=== PATIENT | female | born 1965 | race Caucasian/White ===

== ENCOUNTER 2017-01-29 15:41 | Emergency (ER) | payer BC, MEDICARE ==
[2017-01-29] MEDS ORDERED: EPINEPHrine 1 MG/ML SDV ONE (15:43)
[2017-01-29] MEDS ORDERED: methylPREDNISolone Sodium Succinate 125 MG/2 ML SDV ONE (15:43)
[2017-01-29] MEDS ORDERED: diphenhydrAMINE 50 MG/ML SDV ONE (15:43)
[2017-01-29] MEDS ORDERED: Sodium Chloride 0.9% 10 ML Syringe FLUSH PRN (15:51)
[2017-01-29] MEDS ORDERED: Sodium Chloride 0.9% 2.5 ML Syringe FLUSH PRN (15:51)
[2017-01-29] MEDS ORDERED: diphenhydrAMINE 50 MG/ML SDV IVPUSH ONE (15:51)
[2017-01-29] MEDS ORDERED: Famotidine 20 MG/2 ML SDV IVPUSH ONE (15:51)
[2017-01-29] MEDS ORDERED: methylPREDNISolone Sodium Succinate 125 MG/2 ML SDV IVPUSH ONE (15:51)
[2017-01-29] MEDS ORDERED: Sodium Chloride 0.9% 1,000 ML IV ONE (15:51)
[2017-01-29] MEDS ORDERED: EPINEPHrine 1 MG/ML SDV IM ONE (15:51)
--- NOTE | 2017-01-29 15:57 | EDM.PDOC ---
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 The patient said she feels somewhat anxious but she's not short of breath and she has no diffuse rash or itching. She has pain and swelling to her left hand secondary to the insect sting area. She has a history of rheumatoid arthritis and chronic pain in her hands anyway. Patient says she does not have an EpiPen because it is "too expensive" Review of systems: As per history of present illness and below otherwise all systems reviewed and negative. Past medical history: As per history of present illness and as reviewed below otherwise noncontributory. Surgical history: As per history of present illness and as reviewed below otherwise noncontributory. Social history: No reported history of drug or alcohol abuse. Family history: As per history of present illness and as reviewed below otherwise noncontributory. Physical exam: Gen.: Well-developed well-nourished female speaking clearly and easily in the ED without breathlessness or hoarseness to her voice. She has no visible facial swelling or oropharyngeal edema HEENT: Atraumatic, normocephalic, pupils reactive, negative for conjunctival pallor or scleral icterus, mucous membranes moist, throat clear, neck supple, nontender, trachea midline. Lungs: Clear to auscultation, breath sounds equal bilaterally, chest nontender. There Is no stridor or wheezing or work of breathing Heart: S1S2, regular rate and rhythm no overt murmurs Abdomen: Soft, nondistended, nontender. NABS Skin: There is no diffuse erythema rash flushing urticaria seen and turgor is normal. There is some diffuse ill-defined pink erythema at the dorsal aspect of the first MCP area where bite occurred spreading to the dorsal hand but there is no discrete border/urticaria or tenderness. The patient says that she has diffuse tenderness in this region and she always had this pain but it is worse due to the bite. Genitourinary: Deferred. Rectal: Deferred. Extremities: Atraumatic, chronic changes of the hands are noted secondary to her rheumatoid and all other extremities have full range of motion negative for cords or calf pain. Neurovascular unremarkable. Neuro: Awake, alert, oriented. Cranial nerves II through XII unremarkable. Cerebellum unremarkable. Motor and sensory unremarkable throughout. Exam nonfocal. Diagnostics: None Therapeutics: IV fluids at the Solu-Medrol Pepcid Benadryl Patient continues to be stable without any airway compromise, facial swelling and no progression of the erythema on the hand. I will write a prescription for an EpiPen as well as prednisone and advised Benadryl for home. Patient initially told me she does not have an EpiPen because she cannot afford it. Impression: Wasp sting with history of anaphylactic reaction stable Definitive disposition and diagnosis as appropriate pending reevaluation and review of above. - Related Data Allergies Allergy/AdvReac Type Severity Reaction Status Date / Time latex Allergy swelling,it Verified 01/29/17 15:43 abdullahi bee sting Allergy Swelling Uncoded 07/06/16 23:26 Home Meds: Home Meds Cholecalciferol (Vitamin D3) [Vitamin D3] 1,000 unit PO DAILY 07/06/16 [History] Cyanocobalamin (Vitamin B-12) [Vitamin B-12] 1,000 mg PO DAILY 07/06/16 [History ] DULoxetine [Cymbalta] 2 mg PO DAILY 07/06/16 [History] Folic Acid 1 mg PO DAILY 07/06/16 [History] Meloxicam 7.5 mg PO DAILY 07/06/16 [History] Prednisone [IMW: predniSONE] 2 mg PO DAILY 07/06/16 [History] Zolpidem Tartrate [Ambien] 5 mg PO DAILY 07/06/16 [History] Past Medical History HEENT History: Reports: None Cardiovascular History: Reports: None Respiratory History: Reports: None Gastrointestinal History: Reports: None Genitourinary History: Reports: None RECRUITMENT OFFICER History: Reports: None Musculoskeletal History: Reports: Osteoarthritis, RA Neurological History: Reports: None Psychiatric History: Reports: None Endocrine/Metabolic History: Reports: None Hematologic History: Reports: None Immunologic History: Reports: None Oncologic (Cancer) History: Reports: None Dermatologic History: Reports: None - Infectious Disease History Infectious Disease History: Reports: Chicken Pox, Influenza - Past Surgical History Head Surgeries/Procedures: Reports: None HEENT Surgical History: Reports: None Cardiovascular Surgical History: Reports: None Respiratory Surgical History: Reports: None GI Surgical History: Reports: None Female Surgical History: Reports: Hysterectomy Endocrine Surgical History: Reports: None Neurological Surgical History: Reports: None Musculoskeletal Surgical History: Reports: None Oncologic Surgical History: Reports: None Dermatological Surgical History: Reports: None Social & Family History - Tobacco Use Smoking Status *Q: Never Smoker Years of Tobacco use: 0 Packs/Tins Daily: 0 - Caffeine Use Caffeine Use: Reports: Coffee, Soda - Recreational Drug Use Recreational Drug Use: No ED ROS GENERAL - Review of Systems Review Of Systems: ROS reveals no pertinent complaints other than HPI. ED EXAM, GENERAL - Physical Exam Exam: See Below (See dictation) Course - Vital Signs Last Recorded V/S: Last Vital Signs Temp 36.8 C 01/29/17 15:44 Pulse 90 01/29/17 16:15 Resp 15 01/29/17 16:15 BP 143/92 H 01/29/17 16:15 Pulse Ox 100 01/29/17 16:15 - Orders/Labs/Meds Orders: Active Orders 24 hr Category Date Time Status Sodium Chloride 0.9% [Normal Saline] 1,000 ml Med 01/29/17 15:51 Active IV STAT Sodium Chloride 0.9% [Saline Flush] Med 01/29/17 15:51 Active 10 ml FLUSH ASDIRECTED PRN Sodium Chloride 0.9% [Saline Flush] Med 01/29/17 15:51 Active 2.5 ml FLUSH ASDIRECTED PRN Saline Lock Insert [OM.PC] Stat Oth 01/29/17 15:51 Ordered Medication Orders Sodium Chloride (Normal Saline) 1,000 mls @ 999 mls/hr IV STAT ONE Stop: 01/29/17 16:51 Last Admin: 01/29/17 16:13 Dose: 999 mls/hr Sodium Chloride (Saline Flush) 10 ml FLUSH ASDIRECTED PRN PRN Reason: Keep Vein Open Last Admin: 01/29/17 16:10 Dose: 10 ml Sodium Chloride (Saline Flush) 2.5 ml FLUSH ASDIRECTED PRN PRN Reason: Keep Vein Open Last Admin: 01/29/17 16:10 Dose: 2.5 ml Meds: Medications Generic Name Dose Route Start Last Admin Trade Name Freq PRN Reason Stop Dose Admin Sodium Chloride 1,000 mls @ 999 mls/hr 01/29/17 15:51 01/29/17 16:13 Normal Saline IV 01/29/17 16:51 999 mls/hr STAT ONE Administration Sodium Chloride 10 ml 01/29/17 15:51 01/29/17 16:10 Saline Flush FLUSH 10 ml ASDIRECTED PRN Administration Keep Vein Open Sodium Chloride 2.5 ml 01/29/17 15:51 01/29/17 16:10 Saline Flush FLUSH 2.5 ml ASDIRECTED PRN Administration Keep Vein Open Discontinued Medications Generic Name Dose Route Start Last Admin Trade Name Freq PRN Reason Stop Dose Admin Diphenhydramine HCl 50 mg 01/29/17 15:51 01/29/17 16:10 Benadryl IVPUSH 01/29/17 15:52 50 mg ONETIME ONE Administration Epinephrine HCl 0.3 mg 01/29/17 15:51 01/29/17 16:10 Adrenalin 1:1000 IM 01/29/17 15:52 Not Given ONETIME ONE Epinephrine HCl 0.3 mg 01/29/17 16:09 01/29/17 16:09 Adrenalin 1:1000 SUBCUT 01/29/17 16:10 0.3 mg ONETIME ONE Administration Famotidine 20 mg 01/29/17 15:51 01/29/17 16:11 Pepcid IVPUSH 01/29/17 15:52 20 mg ONETIME ONE Administration Methylprednisolone Sodium Succinate 125 mg 01/29/17 15:51 01/29/17 16:10 Solu-Medrol IVPUSH 01/29/17 15:52 125 mg ONETIME ONE Administration Departure - Departure Time of Disposition: 16:48 Disposition: Home, Self-Care 01 Condition: Good Clinical Impression: Wasp sting Qualifiers: Encounter type: initial encounter Injury intent: accidental or unintentional Qualified Code(s): T63.461A - Toxic effect of venom of wasps, accidental ( unintentional), initial encounter Allergic reaction Qualifiers: Encounter type: initial encounter Qualified Code(s): T78.40XA - Allergy, unspecified, initial encounter - Discharge Information Forms: ED Department Discharge Additional Instructions: The following information is given to patients seen in the emergency department who are being discharged to home. This information is to outline your options for follow-up care. We provide all patients seen in our emergency department with a follow-up referral. The need for follow-up, as well as the timing and circumstances, are variable depending upon the specifics of your emergency department visit. If you don't have a primary care physician on staff, we will provide you with a referral. We always advise you to contact your personal physician following an emergency department visit to inform them of the circumstance of the visit and for follow-up with them and/or the need for any referrals to a consulting specialist. The emergency department will also refer you to a specialist when appropriate. This referral assures that you have the opportunity for followup care with a specialist. All of these measure are taken in an effort to provide you with optimal care, which includes your followup. Under all circumstances we always encourage you to contact your private physician who remains a resource for coordinating your care. When calling for followup care, please make the office aware that this follow-up is from your recent emergency room visit. If for any reason you are refused follow-up, please contact the [facility] emergency department at and ask to speak to the emergency department charge nurse. [facility] Primary care- Internal Medicine and Family [address] [address] Please continue to take Benadryl every 6 hours, 50 mg, for the next 24-36 hours for itching redness rashes as we discussed. Please take the prednisone as prescribed until it is finished. Please use the EpiPen if you're stung again and please call and follow-up with your clinic doctor or one of our providers in the next few days for reevaluation and further care. Expect pain swelling near the insect sting location ice and elevate to the area. Return to ER as needed and as discussed - My Orders Last 24 Hours: My Active Orders 01/29/17 15:51 Sodium Chloride 0.9% [Normal Saline] 1,000 ml IV STAT Sodium Chloride 0.9% [Saline Flush] 10 ml FLUSH ASDIRECTED PRN Sodium Chloride 0.9% [Saline Flush] 2.5 ml FLUSH ASDIRECTED PRN Saline Lock Insert [OM.PC] Stat - Assessment/Plan Last 24 Hours: My Active Orders 01/29/17 15:51 Sodium Chloride 0.9% [Normal Saline] 1,000 ml IV STAT Sodium Chloride 0.9% [Saline Flush] 10 ml FLUSH ASDIRECTED PRN Sodium Chloride 0.9% [Saline Flush] 2.5 ml FLUSH ASDIRECTED PRN Saline Lock Insert [OM.PC] Stat
[2017-01-29] MEDS ORDERED: EPINEPHrine 1 MG/1 ML Amp SUBCUT ONE (16:09)
[2017-01-29 17:06] VITALS: BP 128/91
== END 2017-01-29 17:05 | disposition home or self-care (01) ==
LOC: MW.ED 15:41
DX: T63.461A Toxic effect of venom of wasps, accidental (unintentional), initial encounter (principal); M19.90 Unspecified osteoarthritis, unspecified site; Z90.710 Acquired absence of both cervix and uterus; Z79.899 Other long term (current) drug therapy; Z91.040 Latex allergy status; Z91.030 Bee allergy status
CPT/HCPCS: 96361; 96372; 96374; 96375; 99283; J0171; J1200; J2930; J7040

== ENCOUNTER 2017-06-18 13:07 | Inpatient (IN) | payer BC, MEDICARE ==
--- NOTE | 2017-06-18 13:12 | EDM.PDOC ---
ED HPI GENERAL MEDICAL PROBLEM - General Chief Complaint: Lower Extremity Injury/Pain Stated Complaint: FALL Time Seen by Provider: 06/18/17 13:10 Source of Information: Reports: Patient, EMS - History of Present Illness INITIAL COMMENTS - FREE TEXT/NARRATIVE: HISTORY AND PHYSICAL: History of present illness: [Patient slipped getting into a pickup or out of a pickup felt to her bottom complains of left hip pain 10 out of 10, EMS on the cemented provided fentanyl 50 g, pain 0 out of 10 at current Tender with palpation entire limb neurovascularly intact on the left, slight shortening with external rotation Head injury or loss of consciousness no fever nausea vomiting chills sweats no chest pain shortness breath headache dizziness palpitation about a urine symptoms ] Review of systems: As per history of present illness and below otherwise all systems reviewed and negative. Past medical history: As per history of present illness and as reviewed below otherwise noncontributory. Surgical history: As per history of present illness and as reviewed below otherwise noncontributory. Social history: No reported history of drug or alcohol abuse. Family history: As per history of present illness and as reviewed below otherwise noncontributory. Physical exam: HEENT: Atraumatic, normocephalic, pupils reactive, negative for conjunctival pallor or scleral icterus, mucous membranes moist, throat clear, neck supple, nontender, trachea midline. Lungs: Clear to auscultation, breath sounds equal bilaterally, chest nontender. Heart: S1S2, regular, negative for clicks, rubs, or JVD. Abdomen: Soft, nondistended, nontender. Negative for masses or hepatosplenomegaly. Negative for costovertebral tenderness. Pelvis: Stable nontender. Genitourinary: Deferred. Rectal: Deferred. Extremities: Atraumatic, negative for cords or calf pain. Neurovascular unremarkable. Neuro: Awake, alert, oriented. Cranial nerves II through XII unremarkable. Cerebellum unremarkable. Motor and sensory unremarkable throughout. Exam nonfocal. Diagnostics: [CBC CMP UA troponin INR EKG Chest 1 view Pelvis with left hip ] Therapeutics: [Fentanyl 100 g IV per EMS Dr. Laguna is been down to evaluate Patient be admitted inpatient Dr. Armenta ] Impression: Left hip fracture [Left hip pain] Definitive disposition and diagnosis as appropriate pending reevaluation and review of above. Left Hip Pain Score (Numeric/FACES): 4 - Related Data Allergies Allergy/AdvReac Type Severity Reaction Status Date / Time latex Allergy swelling,it Verified 06/18/17 13:15 abdullahi bee sting Allergy Swelling Uncoded 07/06/16 23:26 Home Meds: Home Meds Cholecalciferol (Vitamin D3) [Vitamin D3] 1,000 unit PO DAILY 07/06/16 [History] Cyanocobalamin (Vitamin B-12) [Vitamin B-12] 1,000 mg PO DAILY 07/06/16 [History ] DULoxetine [Cymbalta] 2 mg PO DAILY 07/06/16 [History] Folic Acid 1 mg PO DAILY 07/06/16 [History] Meloxicam 7.5 mg PO DAILY 07/06/16 [History] Prednisone [IMW: predniSONE] 2 mg PO DAILY 07/06/16 [History] Zolpidem Tartrate [Ambien] 5 mg PO DAILY 07/06/16 [History] Past Medical History HEENT History: Reports: None Cardiovascular History: Reports: None Respiratory History: Reports: None Gastrointestinal History: Reports: None Genitourinary History: Reports: None PHARMACY INFORMATICIST History: Reports: None Musculoskeletal History: Reports: Osteoarthritis Neurological History: Reports: None Psychiatric History: Reports: None Endocrine/Metabolic History: Reports: None Hematologic History: Reports: None Immunologic History: Reports: None Oncologic (Cancer) History: Reports: None Dermatologic History: Reports: None - Infectious Disease History Infectious Disease History: Reports: Chicken Pox, Influenza - Past Surgical History Head Surgeries/Procedures: Reports: None HEENT Surgical History: Reports: None Cardiovascular Surgical History: Reports: None Respiratory Surgical History: Reports: None GI Surgical History: Reports: None Female Surgical History: Reports: Hysterectomy Endocrine Surgical History: Reports: None Neurological Surgical History: Reports: None Musculoskeletal Surgical History: Reports: None Oncologic Surgical History: Reports: None Dermatological Surgical History: Reports: None Social & Family History - Tobacco Use Smoking Status *Q: Light Tobacco Smoker Years of Tobacco use: 0 Packs/Tins Daily: 0 - Caffeine Use Caffeine Use: Reports: Coffee, Soda - Recreational Drug Use Recreational Drug Use: No Review of Systems - Review of Systems Review Of Systems: ROS reveals no pertinent complaints other than HPI. ED EXAM, GENERAL - Physical Exam Exam: See Below Course - Vital Signs Last Recorded V/S: Last Vital Signs Temp 97.1 F 06/18/17 13:12 Pulse 103 H 06/18/17 13:12 Resp 18 06/18/17 13:12 BP 148/92 H 06/18/17 13:12 Pulse Ox 93 L 06/18/17 13:12 - Orders/Labs/Meds Orders: Active Orders 24 hr Category Date Time Status EKG Documentation Completion [RC] STAT Care 06/18/17 13:09 Active Chest 1V Frontal [CR] Stat Exams 06/18/17 13:09 Ordered COMPREHENSIVE METABOLIC PN,CMP [CHEM] Stat Lab 06/18/17 13:22 Received TROPONIN I [CHEM] Stat Lab 06/18/17 13:22 Received UA W/MICROSCOPIC [URIN] Stat Lab 06/18/17 13:09 Uncollected Sodium Chloride 0.9% [Normal Saline] 1,000 ml Med 06/18/17 13:15 Active IV STAT Medication Orders Sodium Chloride (Normal Saline) 1,000 mls @ 125 mls/hr IV STAT MICHAEL Labs: Laboratory Tests 06/18/17 06/18/17 Range/Units 13:22 13:22 WBC 4.61 (4.0-11.0) K/uL RBC 5.11 (4.30-5.90) M/uL Hgb 14.4 (12.0-16.0) g/dL Hct 42.8 (36.0-46.0) % MCV 83.8 (80.0-98.0) fL MCH 28.2 (27.0-32.0) pg MCHC 33.6 (31.0-37.0) g/dL RDW Std Deviation 47.6 (28.0-62.0) fl RDW Coeff of Rashaun 16 H (11.0-15.0) % Plt Count 204 (150-400) K/uL MPV 8.70 (7.40-12.00) fL Neut % (Auto) 56.9 (48.0-80.0) % Lymph % (Auto) 34.9 (16.0-40.0) % Vernon % (Auto) 6.7 (0.0-15.0) % Eos % (Auto) 1.3 (0.0-7.0) % Baso % (Auto) 0.2 (0.0-1.5) % Neut # (Auto) 2.6 (1.4-5.7) K/uL Lymph # (Auto) 1.6 (0.6-2.4) K/uL Vernon # (Auto) 0.3 (0.0-0.8) K/uL Eos # (Auto) 0.1 (0.0-0.7) K/uL Baso # (Auto) 0.0 (0.0-0.1) K/uL Nucleated RBC % 0.0 /100WBC Nucleated RBCs # 0 K/uL INR 1.09 Meds: Medications Generic Name Dose Route Start Last Admin Trade Name Freq PRN Reason Stop Dose Admin Sodium Chloride 1,000 mls @ 125 mls/hr 06/18/17 13:15 Normal Saline IV STAT MICHAEL Departure - Departure Time of Disposition: 14:25 Disposition: Admitted As Inpatient 66 Condition: Fair Clinical Impression: Closed left hip fracture - Discharge Information Forms: ED Department Discharge - My Orders Last 24 Hours: My Active Orders 06/18/17 13:09 EKG Documentation Completion [RC] STAT Chest 1V Frontal [CR] Stat UA W/MICROSCOPIC [URIN] Stat 06/18/17 13:15 Sodium Chloride 0.9% [Normal Saline] 1,000 ml IV STAT 06/18/17 13:22 COMPREHENSIVE METABOLIC PN,CMP [CHEM] Stat TROPONIN I [CHEM] Stat - Assessment/Plan Last 24 Hours: My Active Orders 06/18/17 13:09 EKG Documentation Completion [RC] STAT Chest 1V Frontal [CR] Stat UA W/MICROSCOPIC [URIN] Stat 06/18/17 13:15 Sodium Chloride 0.9% [Normal Saline] 1,000 ml IV STAT 06/18/17 13:22 COMPREHENSIVE METABOLIC PN,CMP [CHEM] Stat TROPONIN I [CHEM] Stat
[2017-06-18] MEDS ORDERED: Sodium Chloride 0.9% 1,000 ML IV SCH (13:15)
[2017-06-18 14:01] LABS: CHLORIDE,CL 107 mmol/L (98-110); SODIUM,NA 142 mmol/L (136-146)
--- NOTE | 2017-06-18 14:23 | CR ---
AP pelvis and left hip History: Pain Para 7: None Findings: Greater and lesser pelvic rings are intact. There is a basal neck fracture of the left femu r with slight rotation. This does not extend into the intertrochanteric region. Impression: Basal neck fracture left femur
[2017-06-18] MEDS ORDERED: Lactated Ringers 1,000 ML IV SCH ×2 (14:30→15:00)
--- NOTE | 2017-06-18 14:42 | PCM.CONS ---
H&P History of Present Illness - General Date of Service: 06/18/17 Admit Problem/Dx: Admission Diagnosis/Problem Admission Diagnosis/Problem Hip fracture, intertrochanteric Source of Information: Patient History Limitations: Reports: No Limitations - History of Present Illness Initial Comments - Free Text/Narative: Patient is a 52 y/o female who fell on the ice today, landing on her left hip. She c/o immediate pain and inability to WB. Denies other injuries or LOC. No previous h/o left hip pain. H/o rheumatoid arthritis and is currently on MTX and prednisone. No recent flares. Denies distal paralysis or paresthesias. Onset of Symptoms: Reports: Today Location: Reports: Lower Extremity, Left Quality: Reports: Sharp Improves with: Reports: Rest Worsens with: Reports: Movement Context: Reports: Trauma Associated Symptoms: Reports: No Other Symptoms Left Hip Pain Score (Numeric/FACES): 4 - Related Data Allergies/Adverse Reactions: Allergies Allergy/AdvReac Type Severity Reaction Status Date / Time latex Allergy swelling,it Verified 06/18/17 13:15 abdullahi bee sting Allergy Swelling Uncoded 07/06/16 23:26 Home Medications: Home Meds Cholecalciferol (Vitamin D3) [Vitamin D3] 1,000 unit PO DAILY 07/06/16 [History] Cyanocobalamin (Vitamin B-12) [Vitamin B-12] 1,000 mg PO DAILY 07/06/16 [History ] DULoxetine [Cymbalta] 2 mg PO DAILY 07/06/16 [History] Folic Acid 1 mg PO DAILY 07/06/16 [History] Meloxicam 7.5 mg PO DAILY 07/06/16 [History] Prednisone [IMW: predniSONE] 2 mg PO DAILY 07/06/16 [History] Zolpidem Tartrate [Ambien] 5 mg PO DAILY 07/06/16 [History] Past Medical History HEENT History: Reports: None Cardiovascular History: Reports: None Respiratory History: Reports: None Gastrointestinal History: Reports: None Genitourinary History: Reports: None STORE MGR History: Reports: None Musculoskeletal History: Reports: Osteoarthritis, RA Neurological History: Reports: None Psychiatric History: Reports: None Endocrine/Metabolic History: Reports: None Hematologic History: Reports: None Immunologic History: Reports: None Oncologic (Cancer) History: Reports: None Dermatologic History: Reports: None - Infectious Disease History Infectious Disease History: Reports: Chicken Pox, Influenza - Past Surgical History Head Surgeries/Procedures: Reports: None HEENT Surgical History: Reports: None Cardiovascular Surgical History: Reports: None Respiratory Surgical History: Reports: None GI Surgical History: Reports: None Female Surgical History: Reports: Hysterectomy Endocrine Surgical History: Reports: None Neurological Surgical History: Reports: None Musculoskeletal Surgical History: Reports: None Oncologic Surgical History: Reports: None Dermatological Surgical History: Reports: None Social & Family History - Family History Family Medical History: Noncontributory - Tobacco Use Smoking Status *Q: Light Tobacco Smoker Years of Tobacco use: 0 Packs/Tins Daily: 0 - Caffeine Use Caffeine Use: Reports: Coffee, Soda - Alcohol Use Alcohol Use Comment: Denies daily alcohol use - Recreational Drug Use Recreational Drug Use: No H&P Review of Systems - Review of Systems: Review Of Systems: See Below General: Reports: No Symptoms HEENT: Reports: No Symptoms Pulmonary: Reports: No Symptoms Cardiovascular: Reports: No Symptoms Gastrointestinal: Reports: No Symptoms Genitourinary: Reports: No Symptoms Musculoskeletal: Reports: Other (multiple joint pain secondary to RA) Skin: Reports: No Symptoms Psychiatric: Reports: No Symptoms Neurological: Reports: No Symptoms Hematologic/Lymphatic: Reports: No Symptoms Immunologic: Reports: No Symptoms Exam - Exam Exam: See Below - Vital Signs Vital Signs: Last Vital Signs Temp 97.1 F 06/18/17 13:12 Pulse 103 H 06/18/17 13:12 Resp 18 06/18/17 13:12 BP 148/92 H 06/18/17 13:12 Pulse Ox 93 L 06/18/17 13:12 Weight: 72.575 kg - Exam General: Alert, Oriented, 4 HEENT: Conjunctiva Clear, Hearing Intact, Nares Patent, Pupils Equal Neck: Supple, Trachea Midline, 2 Lungs: Normal Respiratory Effort Cardiovascular: Regular Rate GI/Abdominal Exam: Soft Psychiatric: Alert, Normal Affect, Normal Mood Physical Exam Comments:: exam of LLE shows slight external rotation. TTP over lateral left hip. Pain with gentle log rolling of hip. No TTP around knee, ankle, or foot. AT/EHL/ gastroc 5/5. Sensation intact. DP 2+. - Patient Data Lab Results Last 24 hrs: Laboratory Results - last 24 hr 06/18/17 06/18/17 Range/Units 13:22 13:22 WBC 4.61 (4.0-11.0) K/uL RBC 5.11 (4.30-5.90) M/uL Hgb 14.4 (12.0-16.0) g/dL Hct 42.8 (36.0-46.0) % MCV 83.8 (80.0-98.0) fL MCH 28.2 (27.0-32.0) pg MCHC 33.6 (31.0-37.0) g/dL RDW Std Deviation 47.6 (28.0-62.0) fl RDW Coeff of Rashaun 16 H (11.0-15.0) % Plt Count 204 (150-400) K/uL MPV 8.70 (7.40-12.00) fL Neut % (Auto) 56.9 (48.0-80.0) % Lymph % (Auto) 34.9 (16.0-40.0) % [place] % (Auto) 6.7 (0.0-15.0) % Eos % (Auto) 1.3 (0.0-7.0) % Baso % (Auto) 0.2 (0.0-1.5) % Neut # (Auto) 2.6 (1.4-5.7) K/uL Lymph # (Auto) 1.6 (0.6-2.4) K/uL [place] # (Auto) 0.3 (0.0-0.8) K/uL Eos # (Auto) 0.1 (0.0-0.7) K/uL Baso # (Auto) 0.0 (0.0-0.1) K/uL Nucleated RBC % 0.0 /100WBC Nucleated RBCs # 0 K/uL INR 1.09 Result Diagrams: 06/18/17 13:22 Imaging Impressions Last 24 hrs: XR left hip shows minimally displaced fracture of the femoral neck with slight valgus displacement (Garden II). Consult PN Assessment/Plan Procedures: Procedures EMERGENCY DEPT VISIT (01/29/17) HYDRATE IV INFUSION ADD-ON (01/29/17) IMMUNIZATION ADMIN (07/06/16) TDAP VACCINE 7 YRS/> IM (07/06/16) THER/PROPH/DIAG INJ IV PUSH (09/13/17) THER/PROPH/DIAG INJ SC/IM (01/29/17) TX/PRO/DX INJ NEW DRUG ADDON (01/29/17) (1) Closed left hip fracture SNOMED Code(s): 941262733 Code(s): S72.002A - FRACTURE OF UNSP PART OF NECK OF LEFT FEMUR, INIT Current Visit: Yes Qualifiers: Encounter type: initial encounter Qualified Code(s): S72.002A - Fracture of unspecified part of neck of left femur, initial encounter for closed fracture Problem List Initiated/Reviewed/Updated: Yes Plan: At this time, I discussed treatment options with the patient. I am recommending that the patient undergo closed reduction of the right hip with internal fixation using cannulated screws. Procedure and post operative course discussed with patient. Risks of surgery include, but are not limited to, infection, nonunion, malunion, stiffness, gait abnormalities, blood clots, HW irritation, need for future surgery, and anesthetic complications. Patient understands and wishes to proceed with surgery. Will plan to do today. Will need preop evaluation by the hospitalist.
[2017-06-18] MEDS ORDERED: ceFAZolin 1 GM in Premix Bag 1 BAG IV ONE (14:50)
[2017-06-18] MEDS ORDERED: Scopolamine 1.5 MG Transdermal Patch TRDERM PRN (14:52)
[2017-06-18] MEDS ORDERED: Propofol 200 MG/20 ML SDV ONE (14:53)
[2017-06-18] MEDS ORDERED: fentaNYL 100 MCG/2 ML SDV ONE (14:53)
[2017-06-18] MEDS ORDERED: Midazolam 1 MG/ML 2 ML SDV ONE (14:53)
[2017-06-18] MEDS ORDERED: HYDROmorphone 2 MG/ML SDV ONE ×2 (14:54→16:58)
[2017-06-18] MEDS ORDERED: Dexamethasone 4 MG/ML 5 ML MDV ONE (14:56)
[2017-06-18] MEDS ORDERED: Glycopyrrolate 0.2 MG/ML SDV ONE ×2 (14:56→15:41)
[2017-06-18] MEDS ORDERED: Neostigmine Methylsulfate 1 MG/ML 5 ML Syringe ONE (14:56)
[2017-06-18] MEDS ORDERED: Ondansetron 4 MG/2 ML SDV ONE (14:56)
[2017-06-18] MEDS ORDERED: diphenhydrAMINE 50 MG/ML SDV ONE (14:56)
[2017-06-18] MEDS ORDERED: Rocuronium 10 MG/ML 10 ML Syringe ONE (14:56)
[2017-06-18] MEDS ORDERED: Lidocaine 2% 5 ML SDV ONE (14:57)
--- NOTE | 2017-06-18 14:57 | PCM.PREANE ---
Preanesthetic Assessment - Anesthesia/Transfusion/Family Hx Anesthesia History: Prior Anesthesia Without Reaction Type of Anesthesia Reaction: Excessive Nausea/Vomiting Family History of Anesthesia Reaction: No Transfusion History: Prior Transfusion Without Reaction - Review of Systems General: No Symptoms Pulmonary: No Symptoms Cardiovascular: Chest Pain (not currently, but pt states she has been worked up for chest pain that they related to her arthritis - EKG pending) Gastrointestinal: No Symptoms Neurological: Other (rhumatoid arthritis) Other: Reports: Anxiety - Physical Assessment NPO Status Date: 06/18/17 NPO Status Time: 00:00 (pt states nothing to eat or drink today) O2 Sat by Pulse Oximetry: 93 Respiratory Rate: 18 Vital Signs: Last Vital Signs Temp 97.1 F 06/18/17 13:12 Pulse 103 H 06/18/17 13:12 Resp 18 06/18/17 13:12 BP 148/92 H 06/18/17 13:12 Pulse Ox 93 L 06/18/17 13:12 Height: 5 ft 5 in Weight: 160 lb ASA Class: 2E Mental Status: Alert & Oriented x3 Airway Class: Mallampati = 4 Dentition: Reports: Normal Dentition Thyro-Mental Finger Breadths: 2 (very small mouth; tmj; large tongue) Mouth Opening Finger Breadths: 2 ROM/Head Extension: Full Lungs: Clear to Auscultation, Normal Respiratory Effort Cardiovascular: Regular Rate, Regular Rhythm - Lab Values: Laboratory Last Values WBC 4.61 K/uL (4.0-11.0) 06/18/17 13:22 RBC 5.11 M/uL (4.30-5.90) 06/18/17 13:22 Hgb 14.4 g/dL (12.0-16.0) 06/18/17 13:22 Hct 42.8 % (36.0-46.0) 06/18/17 13:22 MCV 83.8 fL (80.0-98.0) 06/18/17 13:22 MCH 28.2 pg (27.0-32.0) 06/18/17 13:22 MCHC 33.6 g/dL (31.0-37.0) 06/18/17 13:22 RDW Std Deviation 47.6 fl (28.0-62.0) 06/18/17 13:22 RDW Coeff of Rashaun 16 % (11.0-15.0) H 06/18/17 13:22 Plt Count 204 K/uL (150-400) 06/18/17 13:22 MPV 8.70 fL (7.40-12.00) 06/18/17 13:22 Neut % (Auto) 56.9 % (48.0-80.0) 06/18/17 13:22 Lymph % (Auto) 34.9 % (16.0-40.0) 06/18/17 13:22 [place] % (Auto) 6.7 % (0.0-15.0) 06/18/17 13:22 Eos % (Auto) 1.3 % (0.0-7.0) 06/18/17 13:22 Baso % (Auto) 0.2 % (0.0-1.5) 06/18/17 13:22 Neut # (Auto) 2.6 K/uL (1.4-5.7) 06/18/17 13:22 Lymph # (Auto) 1.6 K/uL (0.6-2.4) 06/18/17 13:22 [place] # (Auto) 0.3 K/uL (0.0-0.8) 06/18/17 13:22 Eos # (Auto) 0.1 K/uL (0.0-0.7) 06/18/17 13:22 Baso # (Auto) 0.0 K/uL (0.0-0.1) 06/18/17 13:22 Nucleated RBC % 0.0 /100WBC 06/18/17 13:22 Nucleated RBCs # 0 K/uL 06/18/17 13:22 INR 1.09 06/18/17 13:22 Sodium 142 mmol/L (136-146) 06/18/17 13:22 Potassium 3.8 mmol/L (3.5-5.1) 06/18/17 13:22 Chloride 107 mmol/L (98-110) 06/18/17 13:22 Carbon Dioxide 26 mmol/L (21-31) 06/18/17 13:22 BUN 24 mg/dL (6.0-23.0) H 06/18/17 13:22 Creatinine 0.8 mg/dL (0.6-1.5) 06/18/17 13:22 Est Cr Clr Drug Dosing 74.86 mL/min 06/18/17 13:22 Estimated GFR (MDRD) > 60.0 ml/min 06/18/17 13:22 Glucose 93 mg/dL (60-110) 06/18/17 13:22 Calcium 9.5 mg/dL (8.8-10.8) 06/18/17 13:22 Total Bilirubin 0.2 mg/dL (0.1-1.5) 06/18/17 13:22 AST 20 IU/L (5-40) 06/18/17 13:22 ALT 29 IU/L (8-54) 06/18/17 13:22 Alkaline Phosphatase 113 (40-150) 06/18/17 13:22 Troponin I < 0.10 NG/ML (0.0-0.29) 06/18/17 13:22 Total Protein 7.3 g/dL (6.0-8.0) 06/18/17 13:22 Albumin 4.1 g/dL (3.5-5.0) 06/18/17 13:22 Globulin 3.2 g/dL (2.0-3.5) 06/18/17 13:22 Albumin/Globulin Ratio 1.3 (1.3-2.8) 06/18/17 13:22 - Allergies Allergies/Adverse Reactions: Allergies Allergy/AdvReac Type Severity Reaction Status Date / Time latex Allergy swelling,it Verified 06/18/17 13:15 abdullahi bee sting Allergy Swelling Uncoded 07/06/16 23:26 - Blood Blood Available: No Product(s) Available: None - Anesthesia Plan Free Text/Narrative:: Pt refuses spinal anesthesia and "wants to be knocked out". Discussed with pt that her airway looks questionably difficult from the outside and if she was ever told that with her hysterectomy or had a sore throat after. Pt denies either. Plan for GETA with backup LMA - Acknowledgements Anesthesia Type Planned: General Anesthesia Pt an Appropriate Candidate for the Planned Anesthesia: Yes Alternatives and Risks of Anesthesia Discussed w Pt/Guardian: Yes Pt/Guardian Understands and Agrees with Anesthesia Plan: Yes PreAnesthesia Questionnaire HEENT History: Reports: None Cardiovascular History: Reports: None, Other (See Below) (chest pain pt states she has been worked up for and is a musculoskeletal pain from her arthritis) Respiratory History: Reports: None Gastrointestinal History: Reports: None Genitourinary History: Reports: None PROGRAM DIRECTOR/AIR PERSONALITY History: Reports: None Musculoskeletal History: Reports: Osteoarthritis, RA (took prednisone 5 mg x2 days approx 3 weeks ago for a flare up) Neurological History: Reports: None, Migraines (hx, but none since her hysterectomy) Psychiatric History: Reports: None Endocrine/Metabolic History: Reports: None Hematologic History: Reports: None Immunologic History: Reports: None Oncologic (Cancer) History: Reports: None Dermatologic History: Reports: None - Infectious Disease History Infectious Disease History: Reports: Chicken Pox, Influenza - Past Surgical History Head Surgeries/Procedures: Reports: None HEENT Surgical History: Reports: None Cardiovascular Surgical History: Reports: None Respiratory Surgical History: Reports: None GI Surgical History: Reports: None Female Surgical History: Reports: Hysterectomy Endocrine Surgical History: Reports: None Neurological Surgical History: Reports: None Musculoskeletal Surgical History: Reports: None Oncologic Surgical History: Reports: None Dermatological Surgical History: Reports: None - SUBSTANCE USE Smoking Status *Q: Light Tobacco Smoker Tobacco Use Within Last Twelve Months: Cigarettes Recreational Drug Use History: No - HOME MEDS Home Medications: Home Meds Cholecalciferol (Vitamin D3) [Vitamin D3] 1,000 unit PO DAILY 07/06/16 [History] Cyanocobalamin (Vitamin B-12) [Vitamin B-12] 1,000 mg PO DAILY 07/06/16 [History ] DULoxetine [Cymbalta] 2 mg PO DAILY 07/06/16 [History] Folic Acid 1 mg PO DAILY 07/06/16 [History] Meloxicam 7.5 mg PO DAILY 07/06/16 [History] Prednisone [IMW: predniSONE] 2 mg PO DAILY 07/06/16 [History] Zolpidem Tartrate [Ambien] 5 mg PO DAILY 07/06/16 [History] - CURRENT (IN HOUSE) MEDS Current Meds: Current Medications Lactated Ringer's (Ringers, Lactated) 1,000 mls @ 125 mls/hr IV ASDIRECTED MICHAEL Last Admin: 06/18/17 14:51 Dose: 125 mls/hr Cefazolin Sodium/Dextrose 1 gm (/ Premix) 50 mls @ 100 mls/hr IV ONETIME ONE Stop: 06/18/17 15:19 Lactated Ringer's (Ringers, Lactated) 1,000 mls @ 125 mls/hr IV ASDIRECTED MICHAEL Discontinued Medications Sodium Chloride (Normal Saline) 1,000 mls @ 125 mls/hr IV STAT MICHAEL
--- NOTE | 2017-06-18 15:02 | PCM.HP ---
H&P History of Present Illness - General Date of Service: 06/18/17 Admit Problem/Dx: Admission Diagnosis/Problem Admission Diagnosis/Problem Hip fracture, intertrochanteric Source of Information: Patient History Limitations: Reports: No Limitations - History of Present Illness Initial Comments - Free Text/Narative: This 52 year old female with pmh of depression and RA presented to the ED today with concerns of left hip pain. She reports she was getting out of her truck and stepped wrong falling on her left hip and after this she heard a crack. She had sudden severe pain and was unable to get up. EMS was called. She denies LOC or hitting her head. She denies numbness of tingling to L leg/foot. Having spasming pain, 10/10 during interview. She reports she takes Meloxicam for pain secondary to RA and Methrotrexate weekly for RA. She does not taking oral steroids daily, it is as needed and she has not taken these in awhile. She denies any recent URI, sore throat headache or fevers. She denies chest pain, SOB palpations, abdominal pain or urinary symptoms. Prior to this incident she was feeling normal. She denies CAD, DM type 2 or lung disease. She denies tobacco use, recreational drug use and occassionally drinks alcohol socially. She reports she normally ambulates well per self, but notes her upper body strength is limited. She expresses concern about after surgery, "Many people depend on me, why did this happen today, it is my son's birthday." In the ED CBC WNL, BUN slightly elevated, 24. No official read to CXR, but no obvious infiltrates noted. EKG noted to have a lot of artifact, R-R regular, SR in the 80s. L hip xray reveals basal neck fracture L femur. Dr Lo consulted in ED, and will be taking patient to surgery from ED. Left Hip Pain Score (Numeric/FACES): 4 - Related Data Allergies/Adverse Reactions: Allergies Allergy/AdvReac Type Severity Reaction Status Date / Time latex Allergy swelling,it Verified 06/18/17 13:15 abdullahi bee sting Allergy Swelling Uncoded 07/06/16 23:26 Home Medications: Home Meds Cholecalciferol (Vitamin D3) [Vitamin D3] 1,000 unit PO DAILY 07/06/16 [History] Cyanocobalamin (Vitamin B-12) [Vitamin B-12] 1,000 mg PO DAILY 07/06/16 [History ] DULoxetine [Cymbalta] 2 mg PO DAILY 07/06/16 [History] Folic Acid 1 mg PO DAILY 07/06/16 [History] Meloxicam 7.5 mg PO DAILY 07/06/16 [History] Prednisone [IMW: predniSONE] 2 mg PO DAILY 07/06/16 [History] Zolpidem Tartrate [Ambien] 5 mg PO DAILY 07/06/16 [History] Past Medical History HEENT History: Reports: None Cardiovascular History: Reports: None. Denies: Afib, Blood Clots/VTE/DVT, CAD, High Cholesterol, Hypertension, CT Respiratory History: Reports: None. Denies: Asthma, COPD, Sleep Apnea Gastrointestinal History: Reports: GERD (with dairy products) Genitourinary History: Reports: None. 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 Denies: CVA Psychiatric History: Reports: Depression Endocrine/Metabolic History: Reports: None. Denies: Diabetes, Type II, Hypothyroidism Hematologic History: Reports: Anesthesia Reaction (some nausea with partial hysterectomy, but otherwise tolerated well.). Denies: Anticoagulation Therapy, Bleeding Disorder Immunologic History: Reports: None Oncologic (Cancer) History: Reports: None Dermatologic History: Reports: None - Infectious Disease History Infectious Disease History: Reports: Chicken Pox, Influenza - Past Surgical History Head Surgeries/Procedures: Reports: None HEENT Surgical History: Reports: None Cardiovascular Surgical History: Reports: None Respiratory Surgical History: Reports: None GI Surgical History: Reports: None Female Surgical History: Reports: Hysterectomy Endocrine Surgical History: Reports: None Neurological Surgical History: Reports: None Musculoskeletal Surgical History: Reports: None Oncologic Surgical History: Reports: None Dermatological Surgical History: Reports: None Social & Family History - Family History Family Medical History: Noncontributory - Tobacco Use Smoking Status *Q: Never Smoker Years of Tobacco use: 0 Packs/Tins Daily: 0 - Caffeine Use Caffeine Use: Reports: Coffee, Soda - Alcohol Use Alcohol Use Frequency: Socially - Recreational Drug Use Recreational Drug Use: No - Living Situation & Occupation Living situation: Reports: Occupation: Employed H&P Review of Systems - Review of Systems: Review Of Systems: See Below General: Reports: No Symptoms. Denies: Fever, Chills, Malaise HEENT: Reports: No Symptoms. Denies: Sinus Congestion, Sore Throat Pulmonary: Reports: No Symptoms. Denies: Shortness of Breath Cardiovascular: Reports: No Symptoms. Denies: Chest Pain Gastrointestinal: Reports: No Symptoms. Denies: Abdominal Pain Genitourinary: Reports: No Symptoms. Denies: Dysuria, Frequency, Burning, Pain Musculoskeletal: Reports: Joint Pain (L hip pain, muscle spasms.) Skin: Reports: No Symptoms Psychiatric: Reports: No Symptoms Neurological: Reports: No Symptoms Hematologic/Lymphatic: Reports: No Symptoms. Denies: Easy Bleeding, Easy Bruising Immunologic: Reports: No Symptoms Exam - Exam Exam: See Below - Vital Signs Vital Signs: Last Vital Signs Temp 97.1 F 06/18/17 13:12 Pulse 103 H 06/18/17 13:12 Resp 18 06/18/17 13:12 BP 148/92 H 06/18/17 13:12 Pulse Ox 93 L 06/18/17 13:12 Weight: 72.575 kg - Exam General: Alert, Oriented, Cooperative, Mild Distress (having 10/10 intermittently.) HEENT: Conjunctiva Clear, Mucosa Moist & [place], Posterior Pharynx Clear, Pupils Reactive Neck: Supple, Trachea Midline, 2 Lungs: Clear to Auscultation, Normal Respiratory Effort Cardiovascular: Regular Rate, Regular Rhythm GI/Abdominal Exam: Normal Bowel Sounds, Soft, Non-Tender, No Organomegaly, No Distention, No Abnormal Bruit, No Mass, Pelvis Stable Extremities: No Pedal Edema, Other (scant external rotation of L lower extremity , pain with palpation to hip, no obvious bruising noted. sensation intact along with pulses. Multiple joints noted to have RA defomity, especially to hands, wrists and fingers. ) Skin: Warm, Dry Neuro Extensive - Mental Status: Alert, Oriented x3, Normal Mood/Affect, Normal Cognition Psychiatric: Alert, Normal Affect, Normal Mood - Patient Data Lab Results Last 24 hrs: Laboratory Results - last 24 hr 06/18/17 06/18/17 06/18/17 Range/Units 13:22 13:22 13:22 WBC 4.61 (4.0-11.0) K/uL RBC 5.11 (4.30-5.90) M/uL Hgb 14.4 (12.0-16.0) g/dL Hct 42.8 (36.0-46.0) % MCV 83.8 (80.0-98.0) fL MCH 28.2 (27.0-32.0) pg MCHC 33.6 (31.0-37.0) g/dL RDW Std Deviation 47.6 (28.0-62.0) fl RDW Coeff of Rashaun 16 H (11.0-15.0) % Plt Count 204 (150-400) K/uL MPV 8.70 (7.40-12.00) fL Neut % (Auto) 56.9 (48.0-80.0) % Lymph % (Auto) 34.9 (16.0-40.0) % [place] % (Auto) 6.7 (0.0-15.0) % Eos % (Auto) 1.3 (0.0-7.0) % Baso % (Auto) 0.2 (0.0-1.5) % Neut # (Auto) 2.6 (1.4-5.7) K/uL Lymph # (Auto) 1.6 (0.6-2.4) K/uL [place] # (Auto) 0.3 (0.0-0.8) K/uL Eos # (Auto) 0.1 (0.0-0.7) K/uL Baso # (Auto) 0.0 (0.0-0.1) K/uL Nucleated RBC % 0.0 /100WBC Nucleated RBCs # 0 K/uL INR 1.09 Sodium 142 (136-146) mmol/L Potassium 3.8 (3.5-5.1) mmol/L Chloride 107 (98-110) mmol/L Carbon Dioxide 26 (21-31) mmol/L BUN 24 H (6.0-23.0) mg/dL Creatinine 0.8 (0.6-1.5) mg/dL Est Cr Clr Drug Dosing 74.86 mL/min Estimated GFR (MDRD) > 60.0 ml/min Glucose 93 (60-110) mg/dL Calcium 9.5 (8.8-10.8) mg/dL Total Bilirubin 0.2 (0.1-1.5) mg/dL AST 20 (5-40) IU/L ALT 29 (8-54) IU/L Alkaline Phosphatase 113 (40-150) Troponin I < 0.10 (0.0-0.29) NG/ML Total Protein 7.3 (6.0-8.0) g/dL Albumin 4.1 (3.5-5.0) g/dL Globulin 3.2 (2.0-3.5) g/dL Albumin/Globulin Ratio 1.3 (1.3-2.8) Result Diagrams: 06/18/17 13:22 06/18/17 13:22 EKG INTERPRETATION EKG Date: 06/18/17 Rhythm: NSR Rate (Beats/Min): 80 EKG Interpretation Comments: artifact noted *Q Meaningful Use (ADM) - VTE *Q VTE Criteria *Q: - Stroke *Q Stroke Criteria *Q: - AMI *Q AMI Criteria *Q: - Problem List (1) Closed left hip fracture SNOMED Code(s): 081498970 ICD Code: S72.002A - FRACTURE OF UNSP PART OF NECK OF LEFT FEMUR, INIT Status: Acute Qualifiers: Encounter type: initial encounter Qualified Code(s): S72.002A - Fracture of unspecified part of neck of left femur, initial encounter for closed fracture (2) Osteoarthritis SNOMED Code(s): 139965444 ICD Code: M19.90 - UNSPECIFIED OSTEOARTHRITIS, UNSPECIFIED SITE Status: Chronic Qualifiers: Osteoarthritis location: multiple joints (3) Rheumatoid arthritis SNOMED Code(s): 67439562 ICD Code: M06.9 - RHEUMATOID ARTHRITIS, UNSPECIFIED Status: Chronic Qualifiers: Rheumatoid arthritis location: multiple sites Rheumatoid factor presence: unspecified presence Qualified Code(s): M06.9 - Rheumatoid arthritis, unspecified (4) Depression SNOMED Code(s): 69295556 ICD Code: F32.9 - MAJOR DEPRESSIVE DISORDER, SINGLE EPISODE, UNSPECIFIED Status: Chronic Qualifiers: Depression Type: unspecified Qualified Code(s): F32.9 - Major depressive disorder, single episode, unspecified Problem List Initiated/Reviewed/Updated: Yes Orders Last 24hrs: Active Orders 24 hr Category Date Time Status Admission Status [Patient Status] [ADT] Stat ADT 06/18/17 14:26 Active EKG Documentation Completion [RC] STAT Care 06/18/17 13:09 Active Nothing per Oral Now Diet [DIET] Diet 06/18/17 Dinner Active Chest 1V Frontal [CR] Stat Exams 06/18/17 13:09 Ordered TYPE AND SCREEN [BBK] Routine Lab 06/18/17 14:52 Ordered UA W/MICROSCOPIC [URIN] Stat Lab 06/18/17 13:09 Uncollected Lactated Ringers [Ringers, Lactated] 1,000 ml Med 06/18/17 14:30 Active IV ASDIRECTED Scopolamine [Transderm-Scop] Med 06/18/17 14:52 Active 1.5 mg TRDERM .ONCE PRN ceFAZolin [Ancef] 1 gm Med 06/18/17 14:50 Active Premix Bag 1 bag IV ONETIME Medication Orders Lactated Ringer's (Ringers, Lactated) 1,000 mls @ 125 mls/hr IV ASDIRECTED MICHAEL Last Admin: 06/18/17 14:51 Dose: 125 mls/hr Cefazolin Sodium/Dextrose 1 gm (/ Premix) 50 mls @ 100 mls/hr IV ONETIME ONE Stop: 06/18/17 15:19 Scopolamine (Transderm-Scop) 1.5 mg TRDERM .ONCE PRN PRN Reason: Post Op Nausea Assessment/Plan Comment:: This 52 damaris old female admitted with L hip fracture, to be taken to OR this evening. 1. L hip fracture: Dr Lo consulted. To OR this afternoon. Patient appears to be appropriate surgical risk. 2 RA involving multiple joints: Was supposed to take methotrexate today, but has not taken dose. Does not take Prednisone daily, has not taken for awhile, this is used only for flares. 3. Depression: Continue Home medications VTE prophylaxis: Would recommend starting when deemed appropriate by Ortho, post -operatively.
--- NOTE | 2017-06-18 15:18 | CR ---
Single view portable chest Clinical history: Pain and shortness of breath Comparison: Prior examination dated February 03, 2011. Findings: Costophrenic angles are sharp. The cardiac mediastinum is normal and lungs are clear. Given history of chest pain there is no pneumothorax. Impression: Normal chest
[2017-06-18] MEDS ORDERED: Ondansetron 4 MG/2 ML SDV IVPUSH PRN (15:20)
[2017-06-18] MEDS ORDERED: ceFAZolin 1 GM Vial ONE (15:41)
[2017-06-18] MEDS ORDERED: ePHEDrine 50 MG/ML SDV ONE (15:51)
[2017-06-18] MEDS ORDERED: Scopolamine 1.5 MG Transdermal Patch ONE (15:54)
[2017-06-18] MEDS ORDERED: HYDROmorphone 2 MG/ML Syringe IVPUSH PRN ×2 (16:13→16:40)
[2017-06-18] MEDS ORDERED: fentaNYL 100 MCG/2 ML SDV IVPUSH PRN (16:13)
--- NOTE | 2017-06-18 16:45 | PCM.OPNOTE ---
- General Post-Op/Procedure Note Date of Surgery/Procedure: 06/18/17 Operative Procedure(s): CR left hip with insertion of internal fixation Post-Op Diagnosis: L femoral neck fracture Anesthesia Technique: General ET Tube Primary Surgeon: Dolores Lo Population Health Manager: Leeann Rogers in mLs: 50 Condition: Fair Free Text/Narrative:: #[id number]
[2017-06-18] MEDS ORDERED: Acetaminophen/HYDROcodone 325-10 MG Tab PO PRN (16:59)
[2017-06-18] MEDS ORDERED: Ondansetron 4 MG/2 ML SDV IV PRN (16:59)
[2017-06-18] MEDS ORDERED: diphenhydrAMINE 50 MG/ML SDV IVPUSH SCH (17:15)
--- NOTE | 2017-06-18 17:29 | PCM.POSTAN ---
POST ANESTHESIA ASSESSMENT - MENTAL STATUS Mental Status: Alert, Oriented - VITAL SIGNS Pulse Rate: 101 SaO2: 98 Resp Rate: 14 Blood Pressure: 117/88 - RESPIRATORY Respiratory Status: Respiratory Rate WNL, Airway Patent, O2 Saturation Stable - CARDIOVASCULAR CV Status: Pulse Rate WNL, Blood Pressure Stable - GASTROINTESTINAL GI Status: No Symptoms - PAIN Pain Score: 5 (Pt dozing in and out - appears to be resting comfortably after an additional mg of dilaudid) - POST OP HYDRATION Hydration Status: Adequate & Stable - OBSERVATIONS Free Text/Narrative:: Pt stable for discharge to phase II - have discussed with her, although her memory is not the best as she is still sleepy, that she was a difficult intubation as I spoke with her preop I suspected she would be. She does complain of a sore throat, which we covered was a possibility d/t the difficult intubation. Currently she is eating ice chips and states that seems to help. She states her pain is better after the dilaudid - does have some facial itching for which she received IV benadryl and it seems to be doing better.
[2017-06-18] MEDS: Lactated Ringers 1,000 ML IV SCH (17:58)
[2017-06-18] MEDS ORDERED: Venlafaxine 37.5 MG Tab PO SCH (21:00)
[2017-06-18] MEDS ORDERED: hydrOXYzine HCl 25 MG Tab PO PRN (22:04)
[2017-06-18] MEDS: Docusate Sodium 100 MG Cap PO SCH (22:18)
[2017-06-18] MEDS: ceFAZolin 2 GM in Premix Bag 1 BAG IV SCH (22:19)
[2017-06-18] MEDS ORDERED: VENLAFAXINE 75 MG PO ONE (22:45)
[2017-06-18] MEDS: Ketorolac 30 MG/ML SDV IVPUSH PRN (22:53)
--- NOTE | 2017-06-18 23:39 | OR ---
SURGEON: Dolores Lo MD DATE OF PROCEDURE: 06/18/2017 PREOPERATIVE DIAGNOSIS: Left femoral neck fracture ([place] II). POSTOPERATIVE DIAGNOSIS: Left femoral neck fracture (Garden II). PROCEDURE: Closed reduction of left hip with insertion of internal fixation. FURNACE UNLOADER: Leeann Rogers RN. ANESTHESIA: General. ESTIMATED BLOOD LOSS: 50 mL. TOURNIQUET TIME: Zero minutes. COMPLICATIONS: None. DVT PROPHYLAXIS: PAS boot to the nonoperative leg. IMPLANTS USED: Three 6.0 mm partially threaded cancellous screws. BRIEF HISTORY: Cherelle is a 52-year-old female, who sustained a fracture of the left hip earlier today. She was found to have a minimally displaced fracture of the left femoral neck. She was admitted by the hospitalist service. I did see and consult. I did recommend surgical treatment. The risks and goals of procedure were discussed with the patient and were documented preoperatively. She agreed to proceed. DESCRIPTION OF PROCEDURE: The patient was properly identified and brought to the operating room. She was transferred from the OR cart and placed on the operating room table in supine position. General anesthesia was administered. After adequate anesthesia was obtained, a well-padded perineal post was placed between her legs. The left lower extremity was placed into a traction boot and the right leg was placed with the hip and knee at 90 degrees of flexion. Care was taken to pad all bony prominences. Slight traction was applied to the left lower extremity. It was then brought into and abducted and internally rotated position. C-arm confirmed acceptable reduction of the fracture in both the AP and lateral planes. The left lower extremity was then prepped in standard fashion using ChloraPrep solution. It was then sterilely draped. A time-out was performed to ensure correct site and procedure. Preoperative antibiotics were given. The surgical site had been marked preoperatively. An incision was made over the lateral aspect of the thigh. The subcutaneous tissues were incised down to the level of the bone. A guide pin was then placed in an inferior and central position into the femoral neck. Its position was checked in both the AP and lateral planes and this was felt to be acceptable. Two additional pins were placed proximal to this, 1 anterior and 1 posterior to the initial pin. The pins were then measured for length. They were then over drilled and partially-threaded screws of appropriate length were placed. Final C-arm images confirmed good reduction of the fracture with appropriate positioning of the screws. The wound was then copiously irrigated with saline solution. The subcutaneous tissues were closed with 2-0 Vicryl. The skin was closed with nga. An Aquacel dressing was placed over this. She was awakened from her anesthetic and transferred back to the operating room cart. She was brought to recovery room in stable condition. All needle and sponge counts were correct. It should be noted that her bone quality was quite soft. The screws did have some purchase, however, the quality of the bone is not what would be expected in a standard 52-year-old. This was felt to be due to her history of rheumatoid arthritis as well as her use of prednisone and rheumatologic medications in the past. KEENROX / MODL /[id number]
[2017-06-19] MEDS: HYDROmorphone 2 MG/ML Syringe IVPUSH PRN ×2 (01:08→08:43)
[2017-06-19] MEDS: Lactated Ringers 1,000 ML IV SCH (03:50)
[2017-06-19] MEDS ORDERED: Calcium Carbonate 500 MG Tab.Chew PO PRN ×2 (05:15→05:21)
[2017-06-19 05:35] LABS: CHLORIDE,CL 106 mmol/L (98-110); SODIUM,NA 138 mmol/L (136-146)
[2017-06-19] MEDS: ceFAZolin 2 GM in Premix Bag 1 BAG IV SCH (05:47)
[2017-06-19] MEDS: Ketorolac 30 MG/ML SDV IVPUSH PRN (05:51)
--- NOTE | 2017-06-19 08:03 | PCM.PN ---
- General Info Date of Service: 06/19/17 Admission Dx/Problem (Free Text): Admission Diagnosis/Problem Admission Diagnosis/Problem Hip fracture, intertrochanteric Subjective Update: very upset this morning. Had a lot of GERD overnight, unable to sleep because she did not receive her Ambien. Denies chest pain or SOB. Hip pain is 8/10. Boyfriend at bedside. Functional Status: Reports: Pain Controlled - Review of Systems Pulmonary: Reports: No Symptoms. Denies: Shortness of Breath, Cough, Sputum Cardiovascular: Reports: No Symptoms. Denies: Chest Pain, Palpitations Gastrointestinal: Reports: Other (GERD, burning up esophagus) Genitourinary: Reports: No Symptoms. Denies: Dysuria, Frequency, Burning Musculoskeletal: Reports: Joint Pain (R hip) Neurological: Reports: No Symptoms. Denies: Confusion Psychiatric: Reports: No Symptoms. Denies: Confusion - Patient Data Vitals - Most Recent: Last Vital Signs Temp 98.3 F 06/19/17 05:24 Pulse 91 06/19/17 05:24 Resp 19 06/19/17 05:24 BP 132/76 06/19/17 05:24 Pulse Ox 98 06/19/17 05:24 Weight - Most Recent: 72.575 kg I&O - Last 24 Hours: Intake & Output 06/18/17 06/19/17 06/19/17 22:59 06:59 14:59 Intake Total 1000 1422 Output Total 550 Balance 1000 872 Lab Results Last 24 Hours: Laboratory Results - last 24 hr 06/18/17 06/18/17 06/19/17 Range/Units 15:06 19:00 04:46 WBC 6.17 (4.0-11.0) K/uL RBC 4.32 (4.30-5.90) M/uL Hgb 11.8 L (12.0-16.0) g/dL Hct 36.1 (36.0-46.0) % MCV 83.6 (80.0-98.0) fL MCH 27.3 (27.0-32.0) pg MCHC 32.7 (31.0-37.0) g/dL RDW Std Deviation 46.5 (28.0-62.0) fl RDW Coeff of [place] 15 (11.0-15.0) % Plt Count 186 (150-400) K/uL MPV 9.00 (7.40-12.00) fL Neut % (Auto) 87.0 H (48.0-80.0) % Lymph % (Auto) 7.8 L (16.0-40.0) % [place] % (Auto) 5.0 (0.0-15.0) % Eos % (Auto) 0.0 (0.0-7.0) % Baso % (Auto) 0.2 (0.0-1.5) % Neut # (Auto) 5.4 (1.4-5.7) K/uL Lymph # (Auto) 0.5 L (0.6-2.4) K/uL [place] # (Auto) 0.3 (0.0-0.8) K/uL Eos # (Auto) 0.0 (0.0-0.7) K/uL Baso # (Auto) 0.0 (0.0-0.1) K/uL Nucleated RBC % 0.0 /100WBC Nucleated RBCs # 0 K/uL Sodium (136-146) mmol/L Potassium (3.5-5.1) mmol/L Chloride (98-110) mmol/L Carbon Dioxide (21-31) mmol/L BUN (6.0-23.0) mg/dL Creatinine (0.6-1.5) mg/dL Est Cr Clr Drug Dosing mL/min Estimated GFR (MDRD) ml/min Glucose (60-110) mg/dL Calcium (8.8-10.8) mg/dL Urine Color YELLOW Urine Appearance CLEAR Urine pH 6.0 (5.0-8.0) Ur Specific [place] 1.020 (1.001-1.035) Urine Protein NEGATIVE (NEGATIVE) mg/dL Urine Glucose (UA) NEGATIVE (NEGATIVE) mg/dL Urine Ketones NEGATIVE (NEGATIVE) mg/dL Urine Occult Blood NEGATIVE (NEGATIVE) Urine Nitrite NEGATIVE (NEGATIVE) Urine Bilirubin NEGATIVE (NEGATIVE) Urine Urobilinogen 0.2 (<2.0) EU/dL Ur Leukocyte Esterase NEGATIVE (NEGATIVE) Urine RBC 0-2 (0-2/HPF) Urine WBC 1-3 (0-5/HPF) Ur Epithelial Cells FEW (NONE-FEW) Urine Bacteria FEW (NEGATIVE) Urine Mucus LIGHT (NONE-MOD) Blood Type A POSITIVE Antibody Screen NEGATIVE 06/19/17 Range/Units 04:46 WBC (4.0-11.0) K/uL RBC (4.30-5.90) M/uL Hgb (12.0-16.0) g/dL Hct (36.0-46.0) % MCV (80.0-98.0) fL MCH (27.0-32.0) pg MCHC (31.0-37.0) g/dL RDW Std Deviation (28.0-62.0) fl RDW Coeff of [place] (11.0-15.0) % Plt Count (150-400) K/uL MPV (7.40-12.00) fL Neut % (Auto) (48.0-80.0) % Lymph % (Auto) (16.0-40.0) % [place] % (Auto) (0.0-15.0) % Eos % (Auto) (0.0-7.0) % Baso % (Auto) (0.0-1.5) % Neut # (Auto) (1.4-5.7) K/uL Lymph # (Auto) (0.6-2.4) K/uL [place] # (Auto) (0.0-0.8) K/uL Eos # (Auto) (0.0-0.7) K/uL Baso # (Auto) (0.0-0.1) K/uL Nucleated RBC % /100WBC Nucleated RBCs # K/uL Sodium 138 (136-146) mmol/L Potassium 4.3 (3.5-5.1) mmol/L Chloride 106 (98-110) mmol/L Carbon Dioxide 23 (21-31) mmol/L BUN 17 (6.0-23.0) mg/dL Creatinine 0.7 (0.6-1.5) mg/dL Est Cr Clr Drug Dosing 85.56 mL/min Estimated GFR (MDRD) > 60.0 ml/min Glucose 196 H (60-110) mg/dL Calcium 8.5 L (8.8-10.8) mg/dL Urine Color Urine Appearance Urine pH (5.0-8.0) Ur Specific [place] (1.001-1.035) Urine Protein (NEGATIVE) mg/dL Urine Glucose (UA) (NEGATIVE) mg/dL Urine Ketones (NEGATIVE) mg/dL Urine Occult Blood (NEGATIVE) Urine Nitrite (NEGATIVE) Urine Bilirubin (NEGATIVE) Urine Urobilinogen (<2.0) EU/dL Ur Leukocyte Esterase (NEGATIVE) Urine RBC (0-2/HPF) Urine WBC (0-5/HPF) Ur Epithelial Cells (NONE-FEW) Urine Bacteria (NEGATIVE) Urine Mucus (NONE-MOD) Blood Type Antibody Screen Med Orders - Current: Current Medications Hydrocodone Bitart/Acetaminophen ([place] 325-10 Mg) 1 - 2 tab PO Q4H PRN PRN Reason: Pain Last Admin: 06/18/17 19:12 Dose: 2 tab Calcium Carbonate/Glycine (Tums) 500 - 1,000 mg PO TID PRN PRN Reason: Indigestion Last Admin: 06/19/17 05:47 Dose: 1,000 mg Cholecalciferol (Vitamin D3) 1,000 units PO BEDTIME MICHAEL Cyanocobalamin (Vitamin B12) 1,000 mcg PO BEDTIME MICHAEL Diphenhydramine HCl (Benadryl) 25 mg IVPUSH .ONETIME MICHAEL Last Admin: 06/18/17 17:15 Dose: 25 mg Docusate Sodium (Colace) 100 mg PO BID MICHAEL Last Admin: 06/18/17 22:18 Dose: 100 mg Enoxaparin Sodium (Lovenox) 40 mg SUBCUT Q24H MICHAEL Fentanyl (Sublimaze) 50 mcg IVPUSH .Q5MIN PRN PRN Reason: Pain Folic Acid (Folic Acid) 1 mg PO BEDTIME MICHAEL Hydromorphone HCl (Dilaudid) 1 mg IVPUSH .Q15MIN PRN PRN Reason: Pain Last Admin: 06/18/17 17:00 Dose: 1 mg Hydromorphone HCl (Dilaudid) 0.5 - 1 mg IVPUSH Q3H PRN PRN Reason: Pain Last Admin: 06/19/17 01:08 Dose: 1 mg Hydroxyzine HCl (Atarax) 25 mg PO DAILY PRN PRN Reason: prurutis Last Admin: 06/18/17 22:52 Dose: 25 mg Lactated Ringer's (Ringers, Lactated) 1,000 mls @ 125 mls/hr IV ASDIRECTED MICHAEL Last Admin: 06/18/17 14:51 Dose: 125 mls/hr Lactated Ringer's (Ringers, Lactated) 1,000 mls @ 125 mls/hr IV ASDIRECTED MICHAEL Last Admin: 06/19/17 03:50 Dose: 125 mls/hr Ketorolac Tromethamine (Toradol) 30 mg IVPUSH Q6H PRN PRN Reason: Pain Last Admin: 06/19/17 05:51 Dose: 30 mg Meloxicam (Mobic) 15 mg PO BEDTIME MICHAEL Ondansetron HCl (Zofran) 4 mg IVPUSH Q4H PRN PRN Reason: Nausea Ondansetron HCl (Zofran) 4 mg IV Q8HR PRN PRN Reason: NAUSEA/VOMITING Scopolamine (Transderm-Scop) 1.5 mg TRDERM .ONCE PRN PRN Reason: Post Op Nausea Venlafaxine HCl (Effexor Xr) 75 mg PO BEDTIME MICHAEL Zaleplon (Sonata) 10 mg PO BEDTIME PRN PRN Reason: Insomnia Last Admin: 06/18/17 22:52 Dose: 10 mg Discontinued Medications Calcium Carbonate/Glycine (Tums) 1 - 2 mg PO TID PRN PRN Reason: Indigestion Cefazolin Sodium (Ancef) Confirm Administered Dose 1 gm .ROUTE .STK-MED ONE Stop: 06/18/17 15:42 Dexamethasone (Dexamethasone) Confirm Administered Dose 20 mg .ROUTE .STK-MED ONE Stop: 06/18/17 14:57 Diphenhydramine HCl (Benadryl) Confirm Administered Dose 50 mg .ROUTE .STK-MED ONE Stop: 06/18/17 14:57 Ephedrine Sulfate (Ephedrine Sulfate) Confirm Administered Dose 50 mg .ROUTE .STK-MED ONE Stop: 06/18/17 15:52 Fentanyl (Sublimaze) Confirm Administered Dose 100 mcg .ROUTE .STK-MED ONE Stop: 06/18/17 14:54 Glycopyrrolate (Robinul) Confirm Administered Dose 0.2 mg .ROUTE .STK-MED ONE Stop: 06/18/17 14:57 Glycopyrrolate (Robinul) Confirm Administered Dose 0.2 mg .ROUTE .STK-MED ONE Stop: 06/18/17 15:42 Hydromorphone HCl (Dilaudid) Confirm Administered Dose 2 mg .ROUTE .STK-MED ONE Stop: 06/18/17 14:55 Hydromorphone HCl (Dilaudid) 0.5 mg IVPUSH .Q10MIN PRN PRN Reason: Pain Hydromorphone HCl (Dilaudid) Confirm Administered Dose 2 mg .ROUTE .STK-MED ONE Stop: 06/18/17 16:59 Last Admin: 06/18/17 18:03 Dose: Not Given Sodium Chloride (Normal Saline) 1,000 mls @ 125 mls/hr IV STAT [facility] Cefazolin Sodium/Dextrose 1 gm (/ Premix) 50 mls @ 100 mls/hr IV ONETIME ONE Stop: 06/18/17 15:19 Last Admin: 06/18/17 18:03 Dose: Not Given Lactated Ringer's (Ringers, Lactated) 1,000 mls @ 125 mls/hr IV ASDIRECTED [facility] Cefazolin Sodium/Dextrose 2 gm (/ Premix) 50 mls @ 100 mls/hr IV Q8HR [facility] Stop: 06/19/17 06:29 Last Admin: 06/19/17 05:47 Dose: 100 mls/hr Lidocaine (Xylocaine-Mpf 2%) Confirm Administered Dose 5 ml .ROUTE .ST-MED ONE Stop: 06/18/17 14:58 Midazolam HCl (Versed 1 Mg/Ml) Confirm Administered Dose 4 mg .ROUTE .ST-MED ONE Stop: 06/18/17 14:54 Neostigmine Methylsulfate (Neostigmine) Confirm Administered Dose 5 mg .ROUTE .ST-MED ONE Stop: 06/18/17 14:57 Ondansetron HCl (Zofran) Confirm Administered Dose 4 mg .ROUTE .ST-MED ONE Stop: 06/18/17 14:57 Propofol (Diprivan 20 Ml) Confirm Administered Dose 200 mg .ROUTE .STK-MED ONE Stop: 06/18/17 14:54 Rocuronium [place] (Zemuron) Confirm Administered Dose 100 mg .ROUTE .STK-MED ONE Stop: 06/18/17 14:57 Scopolamine (Transderm-Scop) Confirm Administered Dose 1.5 mg .ROUTE .STK-MED ONE Stop: 06/18/17 15:55 Venlafaxine HCl (Effexor Xr) 75 mg PO ONETIME ONE Stop: 06/18/17 22:46 Last Admin: 06/18/17 22:52 Dose: 75 mg - Exam General: Alert, Oriented, Cooperative, No Acute Distress Neck: Supple Lungs: Clear to Auscultation, Normal Respiratory Effort Cardiovascular: Regular Rate, Regular Rhythm Extremities: Normal Inspection Wound/Incisions: Dressing Dry and Intact (R hip). No: Erythema Psy/Mental Status: Alert, Normal Mood, Agitated - Problem List & Annotations (1) Closed left hip fracture SNOMED Code(s): 136406995 Code(s): S72.002A - FRACTURE OF UNSP PART OF NECK OF LEFT FEMUR, INIT Status: Acute Current Visit: Yes Qualifiers: Encounter type: initial encounter Qualified Code(s): S72.002A - Fracture of unspecified part of neck of left femur, initial encounter for closed fracture (2) Osteoarthritis SNOMED Code(s): 458418958 Code(s): M19.90 - UNSPECIFIED OSTEOARTHRITIS, UNSPECIFIED SITE Status: Chronic Current Visit: Yes Qualifiers: Osteoarthritis location: multiple joints (3) Rheumatoid arthritis SNOMED Code(s): 54282991 Code(s): M06.9 - RHEUMATOID ARTHRITIS, UNSPECIFIED Status: Chronic Current Visit: Yes Qualifiers: Rheumatoid arthritis location: multiple sites Rheumatoid factor presence: unspecified presence Qualified Code(s): M06.9 - Rheumatoid arthritis, unspecified (4) Depression SNOMED Code(s): 85632746 Code(s): F32.9 - MAJOR DEPRESSIVE DISORDER, SINGLE EPISODE, UNSPECIFIED Status: Chronic Current Visit: Yes Qualifiers: Depression Type: unspecified Qualified Code(s): F32.9 - Major depressive disorder, single episode, unspecified - Problem List Review Problem List Initiated/Reviewed/Updated: Yes - My Orders Last 24 Hours: My Active Orders 06/18/17 15:20 Intake and Output [RC] Q12H VTE/DVT Education [RC] PER UNIT ROUTINE Vital Signs [RC] Q4H Ondansetron [Zofran] 4 mg IVPUSH Q4H PRN Resuscitation Status Routine 06/19/17 07:06 Consult to Occupational Therapy [OT Evaluation and Treatment] [CONS] Routine 06/19/17 08:15 Pantoprazole [ProTONIX IV] 40 mg IVPUSH Q12H 06/19/17 21:00 Cholecalciferol (Vitamin D3) [Vitamin D3] 1,000 units PO BEDTIME Cyanocobalamin (Vitamin B12) [Vitamin B12] 1,000 mcg PO BEDTIME Folic Acid 1 mg PO BEDTIME - Plan Plan:: This 52 damaris old female admitted with L hip fracture, to be taken to OR this evening. 1. L hip fracture: Dr Lo consulted. OR last evening. PT/OT to visit today. 2 RA involving multiple joints: Stable. 3. Depression: Continue Home medications 4. GERD: Protonix q12 hr While here, and will send home with script, but if unwilling to pay out of pocket for this as well, will recommend Omeprazole OTC while taking ASA BID. VTE prophylaxis: Concerns with at home blood thinner due to no prescription coverage, she reports she is not willing to pay for any blood thinner that is too expensive. Discussed with Pedro Lo. Will place on ASA 325 BID.
--- NOTE | 2017-06-19 08:06 | PCM48HPAN ---
Post Anesthesia Note - EVALUATION WITHIN 48HRS OF ANESTHETIC Vital Signs in Normal Range: Yes Patient Participated in Evaluation: Yes Respiratory Function Stable: Yes Airway Patent: Yes Cardiovascular Function Stable: Yes Hydration Status Stable: Yes Pain Control Satisfactory: Yes Nausea and Vomiting Control Satisfactory: Yes (Pt did complain of heartburn overnight with vomiting ) Mental Status Recovered: Yes - COMMENTS/OBSERVATIONS Free Text/Narrative:: Pt very frustrated this morning related to care on the floor. No anesthesia complications - pt's sore throat resolved this morning. Did discuss pt's difficult airway and need to mention that to any future anesthesia providers. Discussed pt's concerns with care with Dia Contreras NP.
[2017-06-19] MEDS ORDERED: diphenhydrAMINE 25 MG Cap PO PRN (08:09)
[2017-06-19] MEDS ORDERED: Pantoprazole 40 MG Vial IVPUSH SCH (08:15)
[2017-06-19 08:16] VITALS: BP 140/83
[2017-06-19] MEDS: Docusate Sodium 100 MG Cap PO SCH (08:27)
[2017-06-19] MEDS ORDERED: Acetaminophen/oxyCODONE 325-10 MG Tab PO PRN (08:59)
--- NOTE | 2017-06-19 08:59 | PCM.SURGPN ---
- General Info Date of Service: 06/19/17 Date of Surgery/Procedure: 06/18/17 POD#: 1 Functional Status: Reports: Tolerating Diet, Ambulating, Urinating. Denies: Pain Controlled - Review of Systems General: Reports: No Symptoms Pulmonary: Reports: No Symptoms Cardiovascular: Reports: No Symptoms Gastrointestinal: Reports: No Symptoms Genitourinary: Reports: No Symptoms Musculoskeletal: Reports: Leg Pain, Joint Pain, Joint Swelling Skin: Reports: Pruritis Neurological: Reports: No Symptoms Psychiatric: Reports: No Symptoms - Patient Data Vitals - Most Recent: Last Vital Signs Temp 35.3 C 06/19/17 08:00 Pulse 88 06/19/17 08:00 Resp 20 06/19/17 08:00 BP 140/83 06/19/17 08:00 Pulse Ox 90 L 06/19/17 08:00 Weight - Most Recent: 72.575 kg I&O - Last 24 Hours: Intake & Output 06/18/17 06/19/17 06/19/17 22:59 06:59 14:59 Intake Total 1000 1422 Output Total 550 Balance 1000 872 Lab Results Last 24 Hrs: Laboratory Results - last 24 hr 06/18/17 06/18/17 06/19/17 Range/Units 15:06 19:00 04:46 WBC 6.17 (4.0-11.0) K/uL RBC 4.32 (4.30-5.90) M/uL Hgb 11.8 L (12.0-16.0) g/dL Hct 36.1 (36.0-46.0) % MCV 83.6 (80.0-98.0) fL MCH 27.3 (27.0-32.0) pg MCHC 32.7 (31.0-37.0) g/dL RDW Std Deviation 46.5 (28.0-62.0) fl RDW Coeff of Rasha[place] 15 (11.0-15.0) % Plt Count 186 (150-400) K/uL MPV 9.00 (7.40-12.00) fL Neut % (Auto) 87.0 H (48.0-80.0) % Lymph % (Auto) 7.8 L (16.0-40.0) % [place] % (Auto) 5.0 (0.0-15.0) % Eos % (Auto) 0.0 (0.0-7.0) % Baso % (Auto) 0.2 (0.0-1.5) % Neut # (Auto) 5.4 (1.4-5.7) K/uL Lymph # (Auto) 0.5 L (0.6-2.4) K/uL [place] # (Auto) 0.3 (0.0-0.8) K/uL Eos # (Auto) 0.0 (0.0-0.7) K/uL Baso # (Auto) 0.0 (0.0-0.1) K/uL Nucleated RBC % 0.0 /100WBC Nucleated RBCs # 0 K/uL Sodium (136-146) mmol/L Potassium (3.5-5.1) mmol/L Chloride (98-110) mmol/L Carbon Dioxide (21-31) mmol/L BUN (6.0-23.0) mg/dL Creatinine (0.6-1.5) mg/dL Est Cr Clr Drug Dosing mL/min Estimated GFR (MDRD) ml/min Glucose (60-110) mg/dL Calcium (8.8-10.8) mg/dL Urine Color YELLOW Urine Appearance CLEAR Urine pH 6.0 (5.0-8.0) Ur Specific [place] 1.020 (1.001-1.035) Urine Protein NEGATIVE (NEGATIVE) mg/dL Urine Glucose (UA) NEGATIVE (NEGATIVE) mg/dL Urine Ketones NEGATIVE (NEGATIVE) mg/dL Urine Occult Blood NEGATIVE (NEGATIVE) Urine Nitrite NEGATIVE (NEGATIVE) Urine Bilirubin NEGATIVE (NEGATIVE) Urine Urobilinogen 0.2 (<2.0) EU/dL Ur Leukocyte Esterase NEGATIVE (NEGATIVE) Urine RBC 0-2 (0-2/HPF) Urine WBC 1-3 (0-5/HPF) Ur Epithelial Cells FEW (NONE-FEW) Urine Bacteria FEW (NEGATIVE) Urine Mucus LIGHT (NONE-MOD) Blood Type A POSITIVE Antibody Screen NEGATIVE 06/19/17 Range/Units 04:46 WBC (4.0-11.0) K/uL RBC (4.30-5.90) M/uL Hgb (12.0-16.0) g/dL Hct (36.0-46.0) % MCV (80.0-98.0) fL MCH (27.0-32.0) pg MCHC (31.0-37.0) g/dL RDW Std Deviation (28.0-62.0) fl RDW Coeff of Rasha[place] (11.0-15.0) % Plt Count (150-400) K/uL MPV (7.40-12.00) fL Neut % (Auto) (48.0-80.0) % Lymph % (Auto) (16.0-40.0) % [place] % (Auto) (0.0-15.0) % Eos % (Auto) (0.0-7.0) % Baso % (Auto) (0.0-1.5) % Neut # (Auto) (1.4-5.7) K/uL Lymph # (Auto) (0.6-2.4) K/uL [place] # (Auto) (0.0-0.8) K/uL Eos # (Auto) (0.0-0.7) K/uL Baso # (Auto) (0.0-0.1) K/uL Nucleated RBC % /100WBC Nucleated RBCs # K/uL Sodium 138 (136-146) mmol/L Potassium 4.3 (3.5-5.1) mmol/L Chloride 106 (98-110) mmol/L Carbon Dioxide 23 (21-31) mmol/L BUN 17 (6.0-23.0) mg/dL Creatinine 0.7 (0.6-1.5) mg/dL Est Cr Clr Drug Dosing 85.56 mL/min Estimated GFR (MDRD) > 60.0 ml/min Glucose 196 H (60-110) mg/dL Calcium 8.5 L (8.8-10.8) mg/dL Urine Color Urine Appearance Urine pH (5.0-8.0) Ur Specific [place] (1.001-1.035) Urine Protein (NEGATIVE) mg/dL Urine Glucose (UA) (NEGATIVE) mg/dL Urine Ketones (NEGATIVE) mg/dL Urine Occult Blood (NEGATIVE) Urine Nitrite (NEGATIVE) Urine Bilirubin (NEGATIVE) Urine Urobilinogen (<2.0) EU/dL Ur Leukocyte Esterase (NEGATIVE) Urine RBC (0-2/HPF) Urine WBC (0-5/HPF) Ur Epithelial Cells (NONE-FEW) Urine Bacteria (NEGATIVE) Urine Mucus (NONE-MOD) Blood Type Antibody Screen Med Orders - Current: Current Medications Hydrocodone Bitart/Acetaminophen ([place] 325-10 Mg) 1 - 2 tab PO Q4H PRN PRN Reason: Pain Last Admin: 06/18/17 19:12 Dose: 2 tab Calcium Carbonate/Glycine (Tums) 500 - 1,000 mg PO TID PRN PRN Reason: Indigestion Last Admin: 06/19/17 05:47 Dose: 1,000 mg Cholecalciferol (Vitamin D3) 1,000 units PO BEDTIME MICHAEL Cyanocobalamin (Vitamin B12) 1,000 mcg PO BEDTIME MICHAEL Diphenhydramine HCl (Benadryl) 25 mg IVPUSH .ONETIME [facility] Last Admin: 06/18/17 17:15 Dose: 25 mg Diphenhydramine HCl (Benadryl) 25 mg PO Q6H PRN PRN Reason: Itching Docusate Sodium (Colace) 100 mg PO BID [facility] Last Admin: 06/19/17 08:27 Dose: 100 mg Enoxaparin Sodium (Lovenox) 40 mg SUBCUT Q24H [facility] Last Admin: 06/19/17 08:27 Dose: 40 mg Fentanyl (Sublimaze) 50 mcg IVPUSH .Q5MIN PRN PRN Reason: Pain Folic Acid (Folic Acid) 1 mg PO BEDTIME MICHAEL Hydromorphone HCl (Dilaudid) 1 mg IVPUSH .Q15MIN PRN PRN Reason: Pain Last Admin: 06/18/17 17:00 Dose: 1 mg Hydromorphone HCl (Dilaudid) 0.5 - 1 mg IVPUSH Q3H PRN PRN Reason: Pain Last Admin: 06/19/17 08:43 Dose: 1 mg Hydroxyzine HCl (Atarax) 25 mg PO DAILY PRN PRN Reason: prurutis Last Admin: 06/18/17 22:52 Dose: 25 mg Lactated Ringer's (Ringers, Lactated) 1,000 mls @ 125 mls/hr IV ASDIRECTED [facility] Last Admin: 06/18/17 14:51 Dose: 125 mls/hr Lactated Ringer's (Ringers, Lactated) 1,000 mls @ 125 mls/hr IV ASDIRECTED [facility] Last Admin: 06/19/17 03:50 Dose: 125 mls/hr Ketorolac Tromethamine (Toradol) 30 mg IVPUSH Q6H PRN PRN Reason: Pain Last Admin: 06/19/17 05:51 Dose: 30 mg Meloxicam (Mobic) 15 mg PO BEDTIME MICHAEL Ondansetron HCl (Zofran) 4 mg IVPUSH Q4H PRN PRN Reason: Nausea Ondansetron HCl (Zofran) 4 mg IV Q8HR PRN PRN Reason: NAUSEA/VOMITING Pantoprazole Sodium (Protonix Iv) 40 mg IVPUSH Q12H MICHAEL Last Admin: 06/19/17 08:27 Dose: 40 mg Ambien 10 Mg At (Bedtime) 1 each PO BEDTIME MICHAEL Scopolamine (Transderm-Scop) 1.5 mg TRDERM .ONCE PRN PRN Reason: Post Op Nausea Venlafaxine HCl (Effexor Xr) 75 mg PO BEDTIME MICHAEL Discontinued Medications Calcium Carbonate/Glycine (Tums) 1 - 2 mg PO TID PRN PRN Reason: Indigestion Cefazolin Sodium (Ancef) Confirm Administered Dose 1 gm .ROUTE .STK-MED ONE Stop: 06/18/17 15:42 Dexamethasone (Dexamethasone) Confirm Administered Dose 20 mg .ROUTE .STK-MED ONE Stop: 06/18/17 14:57 Diphenhydramine HCl (Benadryl) Confirm Administered Dose 50 mg .ROUTE .STK-MED ONE Stop: 06/18/17 14:57 Ephedrine Sulfate (Ephedrine Sulfate) Confirm Administered Dose 50 mg .ROUTE .STK-MED ONE Stop: 06/18/17 15:52 Fentanyl (Sublimaze) Confirm Administered Dose 100 mcg .ROUTE .STK-MED ONE Stop: 06/18/17 14:54 Glycopyrrolate (Robinul) Confirm Administered Dose 0.2 mg .ROUTE .STK-MED ONE Stop: 06/18/17 14:57 Glycopyrrolate (Robinul) Confirm Administered Dose 0.2 mg .ROUTE .STK-MED ONE Stop: 06/18/17 15:42 Hydromorphone HCl (Dilaudid) Confirm Administered Dose 2 mg .ROUTE .STK-MED ONE Stop: 06/18/17 14:55 Hydromorphone HCl (Dilaudid) 0.5 mg IVPUSH .Q10MIN PRN PRN Reason: Pain Hydromorphone HCl (Dilaudid) Confirm Administered Dose 2 mg .ROUTE .STK-MED ONE Stop: 06/18/17 16:59 Last Admin: 06/18/17 18:03 Dose: Not Given Sodium Chloride (Normal Saline) 1,000 mls @ 125 mls/hr IV STAT [facility] Cefazolin Sodium/Dextrose 1 gm (/ Premix) 50 mls @ 100 mls/hr IV ONETIME ONE Stop: 06/18/17 15:19 Last Admin: 06/18/17 18:03 Dose: Not Given Lactated Ringer's (Ringers, Lactated) 1,000 mls @ 125 mls/hr IV ASDIRECTED [facility] Cefazolin Sodium/Dextrose 2 gm (/ Premix) 50 mls @ 100 mls/hr IV Q8HR [facility] Stop: 06/19/17 06:29 Last Admin: 06/19/17 05:47 Dose: 100 mls/hr Lidocaine (Xylocaine-Mpf 2%) Confirm Administered Dose 5 ml .ROUTE .ST-MED ONE Stop: 06/18/17 14:58 Midazolam HCl (Versed 1 Mg/Ml) Confirm Administered Dose 4 mg .ROUTE .ST-MED ONE Stop: 06/18/17 14:54 Neostigmine Methylsulfate (Neostigmine) Confirm Administered Dose 5 mg .ROUTE .STK-MED ONE Stop: 06/18/17 14:57 Ondansetron HCl (Zofran) Confirm Administered Dose 4 mg .ROUTE .ST-MED ONE Stop: 06/18/17 14:57 Propofol (Diprivan 20 Ml) Confirm Administered Dose 200 mg .ROUTE .STK-MED ONE Stop: 06/18/17 14:54 Rocuronium [place] (Zemuron) Confirm Administered Dose 100 mg .ROUTE .ST-MED ONE Stop: 06/18/17 14:57 Scopolamine (Transderm-Scop) Confirm Administered Dose 1.5 mg .ROUTE .STK-MED ONE Stop: 06/18/17 15:55 Venlafaxine HCl (Effexor Xr) 75 mg PO ONETIME ONE Stop: 06/18/17 22:46 Last Admin: 06/18/17 22:52 Dose: 75 mg Zaleplon (Sonata) 10 mg PO BEDTIME PRN PRN Reason: Insomnia Last Admin: 06/18/17 22:52 Dose: 10 mg - Exam Wound/Incisions: Dressing Dry and Intact General: Alert, Oriented HEENT: Pupils Equal, Pupils Reactive Neck: Trachea Midline Lungs: Normal Respiratory Effort Extremities: Other (Left anterior tibialis, extensor hallucis longus and gastrocnemius strength +5/5 bilaterally. Sensation intact. Dorsalis pedis and posterior tibial pulses +2 bilaterally. ) Neurological: No New Focal Deficit Psy/Mental Status: Alert, Normal Affect, Normal Mood - Problem List Review Problem List Initiated/Reviewed/Updated: Yes - My Orders Last 24 Hours: Active Orders 24 hr Category Date Time Status Activity as Tolerated [RC] .Routine Care 06/18/17 17:00 Active Antiembolic Devices [RC] PER UNIT ROUTINE Care 06/18/17 17:01 Active Blood Glucose Check, Bedside [RC] ACBED Care 06/18/17 17:00 Inactive Intake and Output [RC] ASDIRECTED Care 06/18/17 16:56 Inactive Intake and Output [RC] ASDIRECTED Care 06/18/17 17:00 Inactive Intake and Output [RC] Q12H Care 06/18/17 15:20 Active Neurovascular Check [RC] Q4HR Care 06/18/17 16:56 Active Notify Provider Vital Signs [RC] ASDIRECTED Care 06/18/17 16:58 Active RT Incentive Spirometry [RC] ASDIRECTED Care 06/18/17 16:56 Active RT Incentive Spirometry [RC] ASDIRECTED Care 06/18/17 17:00 Inactive VTE/DVT Education [RC] PER UNIT ROUTINE Care 06/18/17 15:20 Active Vital Signs [RC] PER UNIT ROUTINE Care 06/18/17 17:00 Inactive Vital Signs [RC] Q4H Care 06/18/17 15:20 Active Vital Signs [RC] Q4H Care 06/18/17 16:56 Inactive Vital Signs [RC] Q4H Care 06/18/17 17:00 Inactive Consult to Occupational Therapy [OT Evaluation and Cons 06/19/17 07:06 Active Treatment] [CONS] Routine PT Evaluation and Treatment [CONS] Routine Cons 06/18/17 17:00 Active Regular Diet [DIET] Diet 06/18/17 Dinner Active Fluoro>1Hr [CR] Routine Exams 06/18/17 17:24 Taken Acetaminophen/HYDROcodone [[place] 325-10 MG] Med 06/18/17 16:59 Active 1 - 2 tab PO Q4H PRN Calcium Carbonate [Tums] Med 06/19/17 05:21 Active 500 - 1,000 mg PO TID PRN Cholecalciferol (Vitamin D3) [Vitamin D3] Med 06/19/17 21:00 Active 1,000 units PO BEDTIME Cyanocobalamin (Vitamin B12) [Vitamin B12] Med 06/19/17 21:00 Active 1,000 mcg PO BEDTIME Docusate Sodium [Colace] Med 06/18/17 21:00 Active 100 mg PO BID Enoxaparin [Lovenox] Med 06/19/17 09:00 Active 40 mg SUBCUT Q24H Folic Acid Med 06/19/17 21:00 Active 1 mg PO BEDTIME HYDROmorphone [Dilaudid] Med 06/18/17 16:59 Active 0.5 - 1 mg IVPUSH Q3H PRN HYDROmorphone [Dilaudid] Med 06/18/17 16:40 Active 1 mg IVPUSH .Q15MIN PRN Ketorolac [Toradol] Med 06/18/17 16:59 Active 30 mg IVPUSH Q6H PRN Lactated Ringers [Ringers, Lactated] 1,000 ml Med 06/18/17 14:30 Active IV ASDIRECTED Lactated Ringers [Ringers, Lactated] 1,000 ml Med 06/18/17 17:00 Active IV ASDIRECTED Meloxicam [Mobic] Med 06/19/17 21:00 Active 15 mg PO BEDTIME Ondansetron [Zofran] Med 06/18/17 16:59 Active 4 mg IV Q8HR PRN Ondansetron [Zofran] Med 06/18/17 15:20 Active 4 mg IVPUSH Q4H PRN Pantoprazole [ProTONIX IV] Med 06/19/17 08:15 Active 40 mg IVPUSH Q12H Patient's Own Medication [Ptom] Med 06/19/17 21:00 Active 1 each PO BEDTIME Scopolamine [Transderm-Scop] Med 06/18/17 14:52 Active 1.5 mg TRDERM .ONCE PRN Venlafaxine [Effexor XR] Med 06/19/17 21:00 Active 75 mg PO BEDTIME diphenhydrAMINE [Benadryl] Med 06/18/17 17:15 Active 25 mg IVPUSH .ONETIME diphenhydrAMINE [Benadryl] Med 06/19/17 08:09 Active 25 mg PO Q6H PRN fentaNYL [Sublimaze] Med 06/18/17 16:13 Active 50 mcg IVPUSH .Q5MIN PRN hydrOXYzine HCl [Atarax] Med 06/18/17 22:04 Active 25 mg PO DAILY PRN Antiembolic Hose [OM.PC] Routine Oth 06/18/17 16:56 Ordered Ice Therapy [OM.PC] Routine Oth 06/18/17 17:00 Ordered Obtain Home Medication List [OM.PC] Routine Oth 06/18/17 17:00 Ordered Sequential Compression Device [OM.PC] Routine Oth 06/18/17 17:00 Ordered Resuscitation Status Routine Resus Stat 06/18/17 15:20 Ordered Medication Orders Hydrocodone Bitart/Acetaminophen ([place] 325-10 Mg) 1 - 2 tab PO Q4H PRN PRN Reason: Pain Last Admin: 06/18/17 19:12 Dose: 2 tab Calcium Carbonate/Glycine (Tums) 500 - 1,000 mg PO TID PRN PRN Reason: Indigestion Last Admin: 06/19/17 05:47 Dose: 1,000 mg Cholecalciferol (Vitamin D3) 1,000 units PO BEDTIME MICHAEL Cyanocobalamin (Vitamin B12) 1,000 mcg PO BEDTIME MICHAEL Diphenhydramine HCl (Benadryl) 25 mg IVPUSH .ONETIME MICHAEL Last Admin: 06/18/17 17:15 Dose: 25 mg Diphenhydramine HCl (Benadryl) 25 mg PO Q6H PRN PRN Reason: Itching Docusate Sodium (Colace) 100 mg PO BID [facility] Last Admin: 06/19/17 08:27 Dose: 100 mg Admin: 06/18/17 22:18 Dose: 100 mg Enoxaparin Sodium (Lovenox) 40 mg SUBCUT Q24H [facility] Last Admin: 06/19/17 08:27 Dose: 40 mg Fentanyl (Sublimaze) 50 mcg IVPUSH .Q5MIN PRN PRN Reason: Pain Folic Acid (Folic Acid) 1 mg PO BEDTIME MICHAEL Hydromorphone HCl (Dilaudid) 1 mg IVPUSH .Q15MIN PRN PRN Reason: Pain Last Admin: 06/18/17 17:00 Dose: 1 mg Hydromorphone HCl (Dilaudid) 0.5 - 1 mg IVPUSH Q3H PRN PRN Reason: Pain Last Admin: 06/19/17 08:43 Dose: 1 mg Admin: 06/19/17 01:08 Dose: 1 mg Hydroxyzine HCl (Atarax) 25 mg PO DAILY PRN PRN Reason: prurutis Last Admin: 06/18/17 22:52 Dose: 25 mg Lactated Ringer's (Ringers, Lactated) 1,000 mls @ 125 mls/hr IV ASDIRECTED [facility] Last Admin: 06/18/17 14:51 Dose: 125 mls/hr Lactated Ringer's (Ringers, Lactated) 1,000 mls @ 125 mls/hr IV ASDIRECTED [facility] Last Admin: 06/19/17 03:50 Dose: 125 mls/hr Infusion: 06/19/17 01:58 Dose: 125 mls/hr Admin: 06/18/17 17:58 Dose: 125 mls/hr Ketorolac Tromethamine (Toradol) 30 mg IVPUSH Q6H PRN PRN Reason: Pain Last Admin: 06/19/17 05:51 Dose: 30 mg Admin: 06/18/17 22:53 Dose: 30 mg Meloxicam (Mobic) 15 mg PO BEDTIME [facility] Ondansetron HCl (Zofran) 4 mg IVPUSH Q4H PRN PRN Reason: Nausea Ondansetron HCl (Zofran) 4 mg IV Q8HR PRN PRN Reason: NAUSEA/VOMITING Pantoprazole Sodium (Protonix Iv) 40 mg IVPUSH Q12H [facility] Last Admin: 06/19/17 08:27 Dose: 40 mg Ambien 10 Mg At (Bedtime) 1 each PO BEDTIME [facility] Scopolamine (Transderm-Scop) 1.5 mg TRDERM .ONCE PRN PRN Reason: Post Op Nausea Venlafaxine HCl (Effexor Xr) 75 mg PO BEDTIME MICHAEL - Assessment Assessment (Free Text/Narrative):: Patient awake in bed this AM. States pain was not well controlled overnight. She was unable to sleep because she did not take Ambien. Does report itching. VSS. Hgb 11.8. UO 550mL. - Plan Plan (Free Text/Narrative):: Continue PO pain management. PT eval today- TTWB x 6 weeks. D/C [place], start Percocet 10/325 mg. Start Lovenox 40mg subcutaneous daily today for DVT prophylaxis. Encourage PO fluid intake. Franky did discuss [place] with patient and she declined. Discharge home this afternoon.
[2017-06-19] MEDS ORDERED: Enoxaparin 40 MG/0.4 ML Syringe SUBCUT SCH (09:00)
--- NOTE | 2017-06-19 09:52 | CR ---
Procedural fluoroscopy 93.1 seconds of cumulative fluoroscopic time was utilized for open reduction and hip fracture fixati on. Impression: Procedural fluoroscopy as above
--- NOTE | 2017-06-19 13:32 | PCM.DCSUM1 ---
Discharge Summary - Hospital Course Brief History: This 52 year old female with pmh of depression and RA presented to the ED today with concerns of left hip pain. She reports she was getting out of her truck and stepped wrong falling on her left hip and after this she heard a crack. She had sudden severe pain and was unable to get up. EMS was called. She denies LOC or hitting her head. She denies numbness of tingling to L leg/ foot. Having spasming pain, 10/10 during interview. She reports she takes Meloxicam for pain secondary to RA and Methrotrexate weekly for RA. She does not taking oral steroids daily, it is as needed and she has not taken these in awhile. She denies any recent URI, sore throat headache or fevers. She denies chest pain, SOB palpations, abdominal pain or urinary symptoms. Prior to this incident she was feeling normal. She denies CAD, DM type 2 or lung disease. She denies tobacco use, recreational drug use and occassionally drinks alcohol socially. She reports she normally ambulates well per self, but notes her upper body strength is limited. She expresses concern about after surgery, "Many people depend on me, why did this happen today, it is my son's birthday.". In the ED CBC WNL, BUN slightly elevated, 24. No official read to CXR negative. EKG noted to have a lot of artifact, R-R regular, SR in the 80s. L hip xray reveals basal neck fracture L femur. Dr Lo consulted in ED, and will be taking patient to surgery from ED. - Discharge Data Discharge Date: 06/19/17 Discharge Disposition: Home, W Home Health Agency 06 Condition: Fair - Discharge Diagnosis/Problem(s) (1) Closed left hip fracture SNOMED Code(s): 232865468 ICD Code: S72.002A - FRACTURE OF UNSP PART OF NECK OF LEFT FEMUR, INIT Status: Acute Current Visit: Yes Qualifiers: Encounter type: initial encounter Qualified Code(s): S72.002A - Fracture of unspecified part of neck of left femur, initial encounter for closed fracture (2) Osteoarthritis SNOMED Code(s): 356725105 ICD Code: M19.90 - UNSPECIFIED OSTEOARTHRITIS, UNSPECIFIED SITE Status: Chronic Current Visit: Yes Qualifiers: Osteoarthritis location: multiple joints (3) Rheumatoid arthritis SNOMED Code(s): 71982482 ICD Code: M06.9 - RHEUMATOID ARTHRITIS, UNSPECIFIED Status: Chronic Current Visit: Yes Qualifiers: Rheumatoid arthritis location: multiple sites Rheumatoid factor presence: unspecified presence Qualified Code(s): M06.9 - Rheumatoid arthritis, unspecified (4) Depression SNOMED Code(s): 97104263 ICD Code: F32.9 - MAJOR DEPRESSIVE DISORDER, SINGLE EPISODE, UNSPECIFIED Status: Chronic Current Visit: Yes Qualifiers: Depression Type: unspecified Qualified Code(s): F32.9 - Major depressive disorder, single episode, unspecified - Patient Summary/Data Operative Procedure(s) Performed: CR left hip with insertion of internal fixation Consults: Consultations 06/18/17 17:00 PT Evaluation and Treatment [CONS] Routine 06/19/17 07:06 Consult to Occupational Therapy [OT Evaluation and Treatment] [CONS] Routine - Patient Instructions Diet: Usual Diet as Tolerated Activity: Apply Ice, Bedrest, Rest and Relax Today Activity, Other: Toe-touch weight bearing with walker. Driving, Other: Do not drive while taking pain medication. Showering/Bathing: May Shower Showering/Bathing, Other: Pat dressing dry after shower. Wound/Incision Care: Keep Operative Site/Wound Site Clean and Dry Notify Provider of: Fever, Increased Pain, Swelling and Redness, Drainage, Nausea and/or Vomiting - Discharge Plan Prescriptions/Med Rec: Acetaminophen/oxyCODONE [Percocet 325-10 MG] 1 - 2 tab PO Q4H PRN #80 tablet PRN Reason: Pain Aspirin 325 mg PO BID #60 tab Esomeprazole Magnesium [Nexium] 20 mg PO DAILY #1 capsule. Home Medications: Home Meds Cholecalciferol (Vitamin D3) [Vitamin D3] 1,000 unit PO BEDTIME 07/06/16 [ History] Cyanocobalamin (Vitamin B-12) [Vitamin B-12] 1,000 mg PO BEDTIME 07/06/16 [ History] Folic Acid 1 mg PO BEDTIME 07/06/16 [History] Meloxicam 15 mg PO BEDTIME 07/06/16 [History] Zolpidem Tartrate [Ambien] 10 mg PO BEDTIME PRN 07/06/16 [History] Methotrexate 15 mg PO Q7D 06/18/17 [History] Venlafaxine [Effexor] 75 mg PO BEDTIME 06/18/17 [History] hydrOXYzine HCl [hydrOXYzine] 25 mg PO DAILY 06/18/17 [History] Acetaminophen/oxyCODONE [Percocet 325-10 MG] 1 - 2 tab PO Q4H PRN #80 tablet 06/05 [Rx] Aspirin 325 mg PO BID #60 tab 06/19/17 [Rx] Docusate Sodium [Colace] 100 mg PO BID cap 06/19/17 [Rx] Esomeprazole Magnesium [Nexium] 20 mg PO DAILY #1 capsule. 06/19/17 [Rx] Patient Handouts: Acetaminophen; Oxycodone capsules, Osteoarthritis, Hip Fracture Referrals: Pedro Alexis PA-C [Physician Scratcher] - 07/01/17 10:30 am Dolores Lo MD [Physician] - 07/24/17 3:30 pm - Discharge Summary/Plan Comment DC Time >30 min.: No Discharge Summary/Plan Comment: Discharge Diagnoses: L femoral neck fracture s/p internal fixation RA Osteoarthritis GERD Cherelle was admitted and taken to OR with Dr Lo for L femoral neck fracture. See operative notes. Post-operatively she has done well and is very eager for discharge home. She is having some concerns with GERD and was encouraged to take Protonix at home while taking ASA BID for VTE prophylaxis. She reports she will take Nexium which she takes at home. She denies wanting much prescription medication due to having not prescription coverage and declined Lovenox or other agents besides the ASA since it was more cost effective for her. She will be discharged home today with Home Health. intermediate is needed to help monitor pain control as well as PT and OT to assist in recovery and ADLs due to hip fracture with fixation and RA. Her PCP Dr Stephens will follow plan of care upon discharge. - General Info Date of Service: 06/19/17 Admission Dx/Problem (Free Text: Admission Diagnosis/Problem Admission Diagnosis/Problem Hip fracture, intertrochanteric - Review of Systems General: Reports: No Symptoms HEENT: Reports: No Symptoms Pulmonary: Reports: No Symptoms Cardiovascular: Reports: No Symptoms Gastrointestinal: Reports: Other (GERD) Genitourinary: Reports: No Symptoms Musculoskeletal: Reports: Joint Pain (generalized, 8/10 is normal which she is now. ) Skin: Reports: No Symptoms Neurological: Reports: No Symptoms Psychiatric: Reports: No Symptoms - Patient Data Vitals - Most Recent: Last Vital Signs Temp 95.6 F 06/19/17 08:00 Pulse 88 06/19/17 08:00 Resp 20 06/19/17 08:00 BP 140/83 06/19/17 08:00 Pulse Ox 90 L 06/19/17 08:00 Weight - Most Recent: 72.575 kg I&O - Last 24 hours: Intake & Output 06/18/17 06/19/17 06/19/17 22:59 06:59 14:59 Intake Total 1000 1422 Output Total 550 Balance 1000 872 Lab Results - Last 24 hrs: Laboratory Results - last 24 hr 06/18/17 06/18/17 06/19/17 Range/Units 15:06 19:00 04:46 WBC 6.17 (4.0-11.0) K/uL RBC 4.32 (4.30-5.90) M/uL Hgb 11.8 L (12.0-16.0) g/dL Hct 36.1 (36.0-46.0) % MCV 83.6 (80.0-98.0) fL MCH 27.3 (27.0-32.0) pg MCHC 32.7 (31.0-37.0) g/dL RDW Std Deviation 46.5 (28.0-62.0) fl RDW Coeff of [place]asha[place] 15 (11.0-15.0) % Plt Count 186 (150-400) K/uL MPV 9.00 (7.40-12.00) fL Neut % (Auto) 87.0 H (48.0-80.0) % Lymph % (Auto) 7.8 L (16.0-40.0) % [place] % (Auto) 5.0 (0.0-15.0) % Eos % (Auto) 0.0 (0.0-7.0) % Baso % (Auto) 0.2 (0.0-1.5) % Neut # (Auto) 5.4 (1.4-5.7) K/uL Lymph # (Auto) 0.5 L (0.6-2.4) K/uL [place] # (Auto) 0.3 (0.0-0.8) K/uL Eos # (Auto) 0.0 (0.0-0.7) K/uL Baso # (Auto) 0.0 (0.0-0.1) K/uL Nucleated RBC % 0.0 /100WBC Nucleated RBCs # 0 K/uL Sodium (136-146) mmol/L Potassium (3.5-5.1) mmol/L Chloride (98-110) mmol/L Carbon Dioxide (21-31) mmol/L BUN (6.0-23.0) mg/dL Creatinine (0.6-1.5) mg/dL Est Cr Clr Drug Dosing mL/min Estimated GFR (MDRD) ml/min Glucose (60-110) mg/dL Calcium (8.8-10.8) mg/dL Urine Color YELLOW Urine Appearance CLEAR Urine pH 6.0 (5.0-8.0) Ur Specific [place] 1.020 (1.001-1.035) Urine Protein NEGATIVE (NEGATIVE) mg/dL Urine Glucose (UA) NEGATIVE (NEGATIVE) mg/dL Urine Ketones NEGATIVE (NEGATIVE) mg/dL Urine Occult Blood NEGATIVE (NEGATIVE) Urine Nitrite NEGATIVE (NEGATIVE) Urine Bilirubin NEGATIVE (NEGATIVE) Urine Urobilinogen 0.2 (<2.0) EU/dL Ur Leukocyte Esterase NEGATIVE (NEGATIVE) Urine RBC 0-2 (0-2/HPF) Urine WBC 1-3 (0-5/HPF) Ur Epithelial Cells FEW (NONE-FEW) Urine Bacteria FEW (NEGATIVE) Urine Mucus LIGHT (NONE-MOD) Blood Type A POSITIVE Antibody Screen NEGATIVE 06/19/17 Range/Units 04:46 WBC (4.0-11.0) K/uL RBC (4.30-5.90) M/uL Hgb (12.0-16.0) g/dL Hct (36.0-46.0) % MCV (80.0-98.0) fL MCH (27.0-32.0) pg MCHC (31.0-37.0) g/dL RDW Std Deviation (28.0-62.0) fl RDW Coeff of Rasha[place] (11.0-15.0) % Plt Count (150-400) K/uL MPV (7.40-12.00) fL Neut % (Auto) (48.0-80.0) % Lymph % (Auto) (16.0-40.0) % [place] % (Auto) (0.0-15.0) % Eos % (Auto) (0.0-7.0) % Baso % (Auto) (0.0-1.5) % Neut # (Auto) (1.4-5.7) K/uL Lymph # (Auto) (0.6-2.4) K/uL [place] # (Auto) (0.0-0.8) K/uL Eos # (Auto) (0.0-0.7) K/uL Baso # (Auto) (0.0-0.1) K/uL Nucleated RBC % /100WBC Nucleated RBCs # K/uL Sodium 138 (136-146) mmol/L Potassium 4.3 (3.5-5.1) mmol/L Chloride 106 (98-110) mmol/L Carbon Dioxide 23 (21-31) mmol/L BUN 17 (6.0-23.0) mg/dL Creatinine 0.7 (0.6-1.5) mg/dL Est Cr Clr Drug Dosing 85.56 mL/min Estimated GFR (MDRD) > 60.0 ml/min Glucose 196 H (60-110) mg/dL Calcium 8.5 L (8.8-10.8) mg/dL Urine Color Urine Appearance Urine pH (5.0-8.0) Ur Specific [place] (1.001-1.035) Urine Protein (NEGATIVE) mg/dL Urine Glucose (UA) (NEGATIVE) mg/dL Urine Ketones (NEGATIVE) mg/dL Urine Occult Blood (NEGATIVE) Urine Nitrite (NEGATIVE) Urine Bilirubin (NEGATIVE) Urine Urobilinogen (<2.0) EU/dL Ur Leukocyte Esterase (NEGATIVE) Urine RBC (0-2/HPF) Urine WBC (0-5/HPF) Ur Epithelial Cells (NONE-FEW) Urine Bacteria (NEGATIVE) Urine Mucus (NONE-MOD) Blood Type Antibody Screen Med Orders - Current: Current Medications Calcium Carbonate/Glycine (Tums) 500 - 1,000 mg PO TID PRN PRN Reason: Indigestion Last Admin: 06/19/17 05:47 Dose: 1,000 mg Cholecalciferol (Vitamin D3) 1,000 units PO BEDTIME MICHAEL Cyanocobalamin (Vitamin B12) 1,000 mcg PO BEDTIME MICHAEL Diphenhydramine HCl (Benadryl) 25 mg IVPUSH .ONETIME [facility] Last Admin: 06/18/17 17:15 Dose: 25 mg Diphenhydramine HCl (Benadryl) 25 mg PO Q6H PRN PRN Reason: Itching Docusate Sodium (Colace) 100 mg PO BID [facility] Last Admin: 06/19/17 08:27 Dose: 100 mg Enoxaparin Sodium (Lovenox) 40 mg SUBCUT Q24H [facility] Last Admin: 06/19/17 08:27 Dose: 40 mg Fentanyl (Sublimaze) 50 mcg IVPUSH .Q5MIN PRN PRN Reason: Pain Folic Acid (Folic Acid) 1 mg PO BEDTIME MICHAEL Hydromorphone HCl (Dilaudid) 1 mg IVPUSH .Q15MIN PRN PRN Reason: Pain Last Admin: 06/18/17 17:00 Dose: 1 mg Hydromorphone HCl (Dilaudid) 0.5 - 1 mg IVPUSH Q3H PRN PRN Reason: Pain Last Admin: 06/19/17 08:43 Dose: 1 mg Hydroxyzine HCl (Atarax) 25 mg PO DAILY PRN PRN Reason: prurutis Last Admin: 06/18/17 22:52 Dose: 25 mg Ketorolac Tromethamine (Toradol) 30 mg IVPUSH Q6H PRN PRN Reason: Pain Last Admin: 06/19/17 05:51 Dose: 30 mg Meloxicam (Mobic) 15 mg PO BEDTIME [facility] Ondansetron HCl (Zofran) 4 mg IVPUSH Q4H PRN PRN Reason: Nausea Ondansetron HCl (Zofran) 4 mg IV Q8HR PRN PRN Reason: NAUSEA/VOMITING Oxycodone/Acetaminophen (Percocet 325-10 Mg) 1 - 2 tab PO Q4H PRN PRN Reason: Pain Pantoprazole Sodium (Protonix Iv) 40 mg IVPUSH Q12H [facility] Last Admin: 06/19/17 08:27 Dose: 40 mg Ambien 10 Mg At (Bedtime) 1 each PO BEDTIME [facility] Scopolamine (Transderm-Scop) 1.5 mg TRDERM .ONCE PRN PRN Reason: Post Op Nausea Venlafaxine HCl (Effexor Xr) 75 mg PO BEDTIME MICHAEL Discontinued Medications Hydrocodone Bitart/Acetaminophen ([place] 325-10 Mg) 1 - 2 tab PO Q4H PRN PRN Reason: Pain Last Admin: 06/18/17 19:12 Dose: 2 tab Calcium Carbonate/Glycine (Tums) 1 - 2 mg PO TID PRN PRN Reason: Indigestion Cefazolin Sodium (Ancef) Confirm Administered Dose 1 gm .ROUTE .STK-MED ONE Stop: 06/18/17 15:42 Dexamethasone (Dexamethasone) Confirm Administered Dose 20 mg .ROUTE .STK-MED ONE Stop: 06/18/17 14:57 Diphenhydramine HCl (Benadryl) Confirm Administered Dose 50 mg .ROUTE .STK-MED ONE Stop: 06/18/17 14:57 Ephedrine Sulfate (Ephedrine Sulfate) Confirm Administered Dose 50 mg .ROUTE .STK-MED ONE Stop: 06/18/17 15:52 Fentanyl (Sublimaze) Confirm Administered Dose 100 mcg .ROUTE .STK-MED ONE Stop: 06/18/17 14:54 Glycopyrrolate (Robinul) Confirm Administered Dose 0.2 mg .ROUTE .STK-MED ONE Stop: 06/18/17 14:57 Glycopyrrolate (Robinul) Confirm Administered Dose 0.2 mg .ROUTE .STK-MED ONE Stop: 06/18/17 15:42 Hydromorphone HCl (Dilaudid) Confirm Administered Dose 2 mg .ROUTE .STK-MED ONE Stop: 06/18/17 14:55 Hydromorphone HCl (Dilaudid) 0.5 mg IVPUSH .Q10MIN PRN PRN Reason: Pain Hydromorphone HCl (Dilaudid) Confirm Administered Dose 2 mg .ROUTE .STK-MED ONE Stop: 06/18/17 16:59 Last Admin: 06/18/17 18:03 Dose: Not Given Sodium Chloride (Normal Saline) 1,000 mls @ 125 mls/hr IV STAT MICHAEL Lactated Ringer's (Ringers, Lactated) 1,000 mls @ 125 mls/hr IV ASDIRECTED MICHAEL Last Admin: 06/18/17 14:51 Dose: 125 mls/hr Cefazolin Sodium/Dextrose 1 gm (/ Premix) 50 mls @ 100 mls/hr IV ONETIME ONE Stop: 06/18/17 15:19 Last Admin: 06/18/17 18:03 Dose: Not Given Lactated Ringer's (Ringers, Lactated) 1,000 mls @ 125 mls/hr IV ASDIRECTED [facility] Lactated Ringer's (Ringers, Lactated) 1,000 mls @ 125 mls/hr IV ASDIRECTED [facility] Last Admin: 06/19/17 03:50 Dose: 125 mls/hr Cefazolin Sodium/Dextrose 2 gm (/ Premix) 50 mls @ 100 mls/hr IV Q8HR [facility] Stop: 06/19/17 06:29 Last Admin: 06/19/17 05:47 Dose: 100 mls/hr Lidocaine (Xylocaine-Mpf 2%) Confirm Administered Dose 5 ml .ROUTE .STK-MED ONE Stop: 06/18/17 14:58 Midazolam HCl (Versed 1 Mg/Ml) Confirm Administered Dose 4 mg .ROUTE .STK-MED ONE Stop: 06/18/17 14:54 Neostigmine Methylsulfate (Neostigmine) Confirm Administered Dose 5 mg .ROUTE .STK-MED ONE Stop: 06/18/17 14:57 Ondansetron HCl (Zofran) Confirm Administered Dose 4 mg .ROUTE .STK-MED ONE Stop: 06/18/17 14:57 Propofol (Diprivan 20 Ml) Confirm Administered Dose 200 mg .ROUTE .STK-MED ONE Stop: 06/18/17 14:54 Rocuronium [place] (Zemuron) Confirm Administered Dose 100 mg .ROUTE .STK-MED ONE Stop: 06/18/17 14:57 Scopolamine (Transderm-Scop) Confirm Administered Dose 1.5 mg .ROUTE .STK-MED ONE Stop: 06/18/17 15:55 Venlafaxine HCl (Effexor Xr) 75 mg PO ONETIME ONE Stop: 06/18/17 22:46 Last Admin: 06/18/17 22:52 Dose: 75 mg Zaleplon (Sonata) 10 mg PO BEDTIME PRN PRN Reason: Insomnia Last Admin: 06/18/17 22:52 Dose: 10 mg - Exam General: Reports: Alert, Oriented Neck: Reports: Supple Lungs: Reports: Clear to Auscultation, Normal Respiratory Effort Cardiovascular: Reports: Regular Rate, Regular Rhythm Extremities: Normal Inspection Wound/Incisions: Reports: Dressing Dry and Intact (L hip) Psy/Mental Status: Reports: Alert, Normal Affect, Normal Mood, Agitated (has been at times angry with care. ) *Q Meaningful Use (DIS) - VTE *Q VTE Criteria *Q: - Stroke *Q Stroke Criteria *Q: - AMI *Q AMI Criteria *Q:
[2017-06-19] MEDS ORDERED: Alum Hydrox/Mag Hydrox/Simeth 15 ML, Lidocaine 2% 5 ML PO ONE ×2 (13:45)
[2017-06-19] MEDS ORDERED: Meloxicam 7.5 MG Tab PO SCH (21:00)
[2017-06-19] MEDS ORDERED: Folic Acid 1 MG Tab PO SCH (21:00)
[2017-06-19] MEDS ORDERED: Cyanocobalamin (Vitamin B12) 500 MCG Tab PO SCH (21:00)
[2017-06-19] MEDS ORDERED: VENLAFAXINE 75 MG PO SCH (21:00)
[2017-06-19] MEDS ORDERED: Cholecalciferol (Vitamin D3) 1,000 Unit Tab PO SCH (21:00)
[2017-06-19] MEDS ORDERED: ZOLPIDEM 10 MG PO SCH (21:00)
== END 2017-06-19 15:00 | disposition home health service (06) | DRG 482 ==
LOC: MW.ED 13:07 → MW.MS 14:26
PROVIDERS: ADMIT Internal Medicine; ATTEND Orthopaedic Surgery
PROC: 0QS704Z Reposition Left Upper Femur with Internal Fixation Device, Open Approach (ICD-10-PCS; principal; 2017-06-18)
DX: S72.002A Fracture of unspecified part of neck of left femur, initial encounter for closed fracture (principal); F17.200 Nicotine dependence, unspecified, uncomplicated; M06.9 Rheumatoid arthritis, unspecified; M19.90 Unspecified osteoarthritis, unspecified site; F32.9 Major depressive disorder, single episode, unspecified; K21.9 Gastro-esophageal reflux disease without esophagitis; W17.89XA Other fall from one level to another, initial encounter; Y93.89 Activity, other specified; Z79.899 Other long term (current) drug therapy; Z91.040 Latex allergy status
CPT/HCPCS: 01210; 36415; 71045; 71045-26; 73501-26-LT; 73501-LT; 76001; 76001-26; 80048; 80053; 81001; 84484; 85025; 85610; 86850; 86900; 86901; 96360; 97110-GP; 97161-GP; 99284; 99285-25; A9270-GY; C1713; C9113; J0690; J1100; J1170; J1200; J1650; J1885; J2250; J2405; J2704; J3010; J7120

== ENCOUNTER 2017-08-23 22:32 | Emergency (ER) | payer MEDICARE ==
[2017-08-23] MEDS ORDERED: Acetaminophen/oxyCODONE 325-10 MG Tab PO ONE (23:14)
[2017-08-23] MEDS ORDERED: cefTRIAXone 1,000 MG in Lidocaine 1% 4 ML IM ONE (23:15)
--- NOTE | 2017-08-23 23:15 | EDM.PDOC ---
ED HPI GENERAL MEDICAL PROBLEM - General Chief Complaint: Skin Complaint Stated Complaint: PT HAS BOIL UNDER LT ARM Time Seen by Provider: 08/23/17 23:15 Source of Information: Reports: Patient - History of Present Illness INITIAL COMMENTS - FREE TEXT/NARRATIVE: HISTORY AND PHYSICAL: History of present illness: [Patient presents with pain in her left axilla, she has had an ingrown hair over the last week she is on methotrexate she complains of 10 out of 10 pain in the left axilla it is warm there is a small area of induration approximately 2 cm x 1 cm which is superficial and not fluctuant there is no redness however it is warm and getting a little pink she has pain with movement of her arm do to the lesion however is in no distress no fever nausea vomiting chills sweats ] Review of systems: As per history of present illness and below otherwise all systems reviewed and negative. Past medical history: As per history of present illness and as reviewed below otherwise noncontributory. Surgical history: As per history of present illness and as reviewed below otherwise noncontributory. Social history: No reported history of drug or alcohol abuse. Family history: As per history of present illness and as reviewed below otherwise noncontributory. Physical exam: HEENT: Atraumatic, normocephalic, pupils reactive, negative for conjunctival pallor or scleral icterus, mucous membranes moist, throat clear, neck supple, nontender, trachea midline. Lungs: Clear to auscultation, breath sounds equal bilaterally, chest nontender. Heart: S1S2, regular, negative for clicks, rubs, or JVD. Abdomen: Soft, nondistended, nontender. Negative for masses or hepatosplenomegaly. Negative for costovertebral tenderness. Pelvis: Stable nontender. Genitourinary: Deferred. Rectal: Deferred. Extremities: Atraumatic, negative for cords or calf pain. Neurovascular unremarkable. Neuro: Awake, alert, oriented. Cranial nerves II through XII unremarkable. Cerebellum unremarkable. Motor and sensory unremarkable throughout. Exam nonfocal. Skin as per history of present illness otherwise unremarkable Diagnostics: [ clinical ] Therapeutics: [ Percocet Bactrim ] Warm pack Return if symptoms persist or worsen Follow-up with primary care in 2 weeks Impression: [ cellulitis/ingrown hair ] Definitive disposition and diagnosis as appropriate pending reevaluation and review of above. left axilla Pain Score (Numeric/FACES): 10 - Related Data Allergies Allergy/AdvReac Type Severity Reaction Status Date / Time latex Allergy swelling,it Verified 08/23/17 22:39 abdullahi bee sting Allergy Swelling Uncoded 08/23/17 22:39 Home Meds: Home Meds Cholecalciferol (Vitamin D3) [Vitamin D3] 1,000 unit PO BEDTIME 07/06/16 [ History] Cyanocobalamin (Vitamin B-12) [Vitamin B-12] 1,000 mg PO BEDTIME 07/06/16 [ History] Folic Acid 1 mg PO BEDTIME 07/06/16 [History] Zolpidem Tartrate [Ambien] 10 mg PO BEDTIME PRN 07/06/16 [History] Methotrexate 15 mg PO Q7D 06/18/17 [History] Venlafaxine [Effexor] 75 mg PO BEDTIME 06/18/17 [History] hydrOXYzine HCl [hydrOXYzine] 25 mg PO DAILY 06/18/17 [History] Acetaminophen/oxyCODONE [Percocet 325-10 MG] 1 - 2 tab PO Q4H PRN #80 tablet 06/05 [Rx] Past Medical History HEENT History: Reports: None Cardiovascular History: Reports: None Respiratory History: Reports: None Gastrointestinal History: Reports: GERD Genitourinary History: Reports: None. Denies: Chronic Renal Insuffiency [employer] History: Reports: None Musculoskeletal History: Reports: Osteoarthritis, RA Neurological History: Reports: None Psychiatric History: Reports: Depression Endocrine/Metabolic History: Reports: None Hematologic History: Reports: Anesthesia Reaction Immunologic History: Reports: None Oncologic (Cancer) History: Reports: None Dermatologic History: Reports: None - Infectious Disease History Infectious Disease History: Reports: Chicken Pox, Influenza - Past Surgical History Head Surgeries/Procedures: Reports: None HEENT Surgical History: Reports: None Cardiovascular Surgical History: Reports: None Respiratory Surgical History: Reports: None GI Surgical History: Reports: None Female Surgical History: Reports: Hysterectomy Endocrine Surgical History: Reports: None Neurological Surgical History: Reports: None Musculoskeletal Surgical History: Reports: None Oncologic Surgical History: Reports: None Dermatological Surgical History: Reports: None Social & Family History - Family History Family Medical History: Noncontributory - Tobacco Use Smoking Status *Q: Never Smoker Years of Tobacco use: 0 Packs/Tins Daily: 0 - Caffeine Use Caffeine Use: Reports: Coffee, Soda - Recreational Drug Use Recreational Drug Use: No - Living Situation & Occupation Living situation: Reports: Occupation: Employed ED ROS GENERAL - Review of Systems Review Of Systems: ROS reveals no pertinent complaints other than HPI. ED EXAM, SKIN/RASH Exam: See Below Course - Vital Signs Last Recorded V/S: Last Vital Signs Temp 99.9 F 08/23/17 22:32 Pulse 91 08/23/17 22:32 Resp 24 H 08/23/17 22:32 BP 151/92 H 08/23/17 22:32 Pulse Ox 97 08/23/17 22:32 - Orders/Labs/Meds Meds: Medications Discontinued Medications Generic Name Dose Route Start Last Admin Trade Name Steffany PRN Reason Stop Dose Admin Ceftriaxone Sodium 1,000 mg/ 4 mls @ 4 mls/sec 08/23/17 23:15 08/23/17 23:22 Lidocaine HCl IM 08/23/17 23:16 4 mls/sec ONETIME ONE Administration Oxycodone/Acetaminophen 1 tab 08/23/17 23:14 08/23/17 23:22 Percocet 325-10 Mg PO 08/23/17 23:15 1 tab ONETIME ONE Administration Departure - Departure Time of Disposition: 00:15 Disposition: Home, Self-Care 01 Condition: Good Clinical Impression: Cellulitis Qualifiers: Site of cellulitis: extremity Site of cellulitis of extremity: upper extremity Laterality: left Qualified Code(s): L03.114 - Cellulitis of left upper limb - Discharge Information Referrals: PCP,None [Primary Care Provider] - Forms: ED Department Discharge Additional Instructions: Medication as prescribed Return if symptoms persist or worsen or fever nausea vomiting chills sweats despite antibiotics Warm pack lesion 3 times daily to promote drainage Follow-up with primary care in 2 weeks [facility] [address] [place] [address] The following information is given to patients seen in the emergency department who are being discharged to home. This information is to outline your options for follow-up care. We provide all patients seen in our emergency department with a follow-up referral. The need for follow-up, as well as the timing and circumstances, are variable depending upon the specifics of your emergency department visit. If you don't have a primary care physician on staff, we will provide you with a referral. We always advise you to contact your personal physician following an emergency department visit to inform them of the circumstance of the visit and for follow-up with them and/or the need for any referrals to a consulting specialist. The emergency department will also refer you to a specialist when appropriate. This referral assures that you have the opportunity for follow-up care with a specialist. All of these measure are taken in an effort to provide you with optimal care, which includes your follow-up. Under all circumstances we always encourage you to contact your private physician who remains a resource for coordinating your care. When calling for follow-up care, please make the office aware that this follow-up is from your recent emergency room visit. If for any reason you are refused follow-up, please contact the [facility] emergency department at and asked to speak to the emergency department charge nurse.
[2017-08-24 00:18] VITALS: BP 153/90
[2017-08-24] MEDS ORDERED: Sulfamethoxazole/Trimethoprim 800-160 MG Tab PO ONE (00:19)
== END 2017-08-24 00:20 | disposition home or self-care (01) ==
LOC: MW.ED 22:32
DX: L03.114 Cellulitis of left upper limb (principal); Z91.040 Latex allergy status; Z91.030 Bee allergy status; Z79.899 Other long term (current) drug therapy
CPT/HCPCS: 96372; 99282; A9270; J0696

== ENCOUNTER 2017-08-29 17:42 | Observation (INO) | payer MEDICARE ==
[2017-08-29] MEDS ORDERED: Piperacillin/Tazobactam 4.5 GM in Sodium Chloride 0.9% 100 ML IV SCH (18:00)
[2017-08-29] MEDS ORDERED: Acetaminophen 325 MG Tab PO PRN (18:14)
[2017-08-29] MEDS ORDERED: Ondansetron 4 MG Tab.DIS PO PRN (18:14)
--- NOTE | 2017-08-29 18:27 | PCM.HP ---
H&P History of Present Illness - General Date of Service: 08/29/17 Admit Problem/Dx: Admission Diagnosis/Problem Admission Diagnosis/Problem Cellulitis Source of Information: Patient History Limitations: Reports: No Limitations - History of Present Illness Initial Comments - Free Text/Narative: 52-year-old female with a history of rheumatoid arthritis, osteoarthritis and depression, is a direct admit secondary to cellulitis in the left axilla. Patient was initially seen for this lesion in the left axilla on August 23, 2017 in the ER. At that time the lesion was only 2 cm x 1 cm and the patient was discharged home with Bactrim and pain medications. The patient notes that the antibiotic did not help resolve the lesion. Patient states that the lesion is now quite a bit larger and causing a lot more pain. She has pain with any movement of the left shoulder. She is feeling pain not only in her left shoulder but over into the chest. She feels "pressure" in her left shoulder. She has had fevers and chills. Patient is also concerned because her daughter had MRSA in April and the patient was in close contact with her. The patient has no history of MRSA and no history of cellulitis. She is currently taking methotrexate for rheumatoid arthritis. She did not take her most recent dose which would've been last Friday because of the abscess in the left axilla. She currently denies any headaches, dizziness, palpitations, shortness of breath , wheezing, cough, abdominal pain, nausea, vomiting, constipation, diarrhea, fever. - Related Data Allergies/Adverse Reactions: Allergies Allergy/AdvReac Type Severity Reaction Status Date / Time latex Allergy swelling,it Verified 08/23/17 22:39 abdullahi bee sting Allergy Swelling Uncoded 08/23/17 22:39 Home Medications: Home Meds Cholecalciferol (Vitamin D3) [Vitamin D3] 1,000 unit PO BEDTIME 07/06/16 [ History] Cyanocobalamin (Vitamin B-12) [Vitamin B-12] 1,000 mg PO BEDTIME 07/06/16 [ History] Folic Acid 1 mg PO BEDTIME 07/06/16 [History] Zolpidem Tartrate [Ambien] 10 mg PO BEDTIME PRN 07/06/16 [History] Methotrexate 15 mg PO Q7D 06/18/17 [History] Venlafaxine [Effexor] 75 mg PO BEDTIME 06/18/17 [History] hydrOXYzine HCl [hydrOXYzine] 25 mg PO BEDTIME 06/18/17 [History] Acetaminophen/oxyCODONE [Percocet 325-10 MG] 1 - 2 tab PO Q4H PRN #80 tablet 06/05 [Rx] Past Medical History HEENT History: Reports: None Cardiovascular History: Reports: None Respiratory History: Reports: None Gastrointestinal History: Reports: GERD Genitourinary History: Reports: None [employer]PER[employer] COORDINATOR History: Reports: None Musculoskeletal History: Reports: Osteoarthritis, RA Neurological History: Reports: None Psychiatric History: Reports: Depression Endocrine/Metabolic History: Reports: None Hematologic History: Reports: Anesthesia Reaction Immunologic History: Reports: None Oncologic (Cancer) History: Reports: None Dermatologic History: Reports: None - Infectious Disease History Infectious Disease History: Reports: Chicken Pox, Influenza - Past Surgical History Head Surgeries/Procedures: Reports: None HEENT Surgical History: Reports: None Cardiovascular Surgical History: Reports: None Respiratory Surgical History: Reports: None GI Surgical History: Reports: None Female Surgical History: Reports: Hysterectomy Endocrine Surgical History: Reports: None Neurological Surgical History: Reports: None Musculoskeletal Surgical History: Reports: None Oncologic Surgical History: Reports: None Dermatological Surgical History: Reports: None Social & Family History - Family History Family Medical History: Noncontributory - Tobacco Use Smoking Status *Q: Never Smoker Years of Tobacco use: 0 Packs/Tins Daily: 0 - Caffeine Use Caffeine Use: Reports: Coffee, Soda - Recreational Drug Use Recreational Drug Use: No - Living Situation & Occupation Living situation: Reports: Occupation: Employed H&P Review of Systems - Review of Systems: Review Of Systems: See Below General: Reports: Fever, Chills HEENT: Reports: No Symptoms Pulmonary: Reports: No Symptoms Cardiovascular: Reports: Chest Pain (Secondary to abscess in left axilla) Gastrointestinal: Reports: No Symptoms Genitourinary: Reports: No Symptoms Musculoskeletal: Reports: Other (Abscess in left axilla resulting in left shoulder pain) Skin: Reports: Other (Abscess in left axilla) Psychiatric: Reports: No Symptoms Neurological: Reports: No Symptoms Hematologic/Lymphatic: Reports: No Symptoms Immunologic: Reports: No Symptoms Exam - Exam Exam: See Below - Vital Signs Vital Signs: Last Vital Signs Temp Pulse 126 H 08/29/17 17:59 Resp 20 08/29/17 17:59 BP 131/88 08/29/17 17:59 Pulse Ox 96 08/29/17 17:59 - Exam General: Alert, Oriented, Cooperative, Mild Distress HEENT: Conjunctiva Clear, Hearing Intact, Mucosa Moist & [place] Neck: Supple, Trachea Midline, 2 Lungs: Clear to Auscultation, Normal Respiratory Effort Cardiovascular: Regular Rhythm, Tachycardia GI/Abdominal Exam: Normal Bowel Sounds, Soft, Non-Tender, No Organomegaly, No Distention, No Abnormal Bruit, No Mass, Pelvis Stable Extremities: Other (Patient has pain with movement of the left shoulder secondary to the infection in the left axilla.) Peripheral Pulses: 2+: Radial (L), Radial (R), Posterior Tibial (L), Posterior Tibial (R) Skin: Other (There is a large erythematous area under the left axilla. No fluctuance appreciated. The area is warm to palpation and also tender to palpation.) Neuro Extensive - Mental Status: Alert, Oriented x3, Normal Mood/Affect, Normal Cognition Psychiatric: Alert, Normal Affect, Normal Mood - Problem List (1) Cellulitis SNOMED Code(s): 863968559 ICD Code: L03.90 - CELLULITIS, UNSPECIFIED Status: Acute Current Visit: No Problem List Initiated/Reviewed/Updated: Yes Orders Last 24hrs: Active Orders 24 hr Category Date Time Status Patient Status [ADT] Routine ADT 08/29/17 18:14 Ordered Height and Weight [RC] DAILY Care 08/29/17 18:14 Ordered Intake and Output [RC] QSHIFT Care 08/29/17 18:15 Ordered Notify Provider Vital Signs [RC] ASDIRECTED Care 08/29/17 18:15 Ordered Oxygen Therapy [RC] PRN Care 08/29/17 18:14 Ordered Pulse Oximetry [RC] PRN Care 08/29/17 18:15 Ordered Up With Assistance [RC] ASDIRECTED Care 08/29/17 18:14 Ordered VTE/DVT Education [RC] PER UNIT ROUTINE Care 08/29/17 18:14 Ordered Vital Signs [RC] Q4H Care 08/29/17 18:14 Ordered Nothing per Oral Now Diet [DIET] Diet 08/29/17 Breakfast Ordered Shoulder w wo Cont Lt [CT] Urgent Exams 08/29/17 18:12 Ordered CBC WITH AUTO DIFF [HEME] AM Lab 08/30/17 05:11 Ordered CBC WITH AUTO DIFF [HEME] AM Lab 08/31/17 05:11 Ordered CBC WITH AUTO DIFF [HEME] AM Lab 09/01/17 05:11 Ordered CBC WITH AUTO DIFF [HEME] Routine Lab 08/29/17 18:14 Ordered COMPREHENSIVE METABOLIC PN,CMP [CHEM] AM Lab 08/30/17 05:11 Ordered COMPREHENSIVE METABOLIC PN,CMP [CHEM] AM Lab 08/31/17 05:11 Ordered COMPREHENSIVE METABOLIC PN,CMP [CHEM] AM Lab 09/01/17 05:11 Ordered COMPREHENSIVE METABOLIC PN,CMP [CHEM] Routine Lab 08/29/17 18:14 Ordered CULTURE BLOOD [BC] Stat Lab 08/29/17 18:18 Ordered CULTURE BLOOD [BC] Stat Lab 08/29/17 18:18 Ordered LACTIC ACID,WHOLE BLOOD [BG] Routine Lab 08/29/17 18:14 Ordered Acetaminophen [Tylenol] Med 08/29/17 18:14 Ordered 650 mg PO Q4H PRN Enoxaparin [Lovenox] Med 08/29/17 18:15 Ordered 40 mg SUBCUT Q24H Morphine Med 08/29/17 18:14 Ordered 2 mg IVPUSH Q2H PRN Ondansetron [Zofran ODT] Med 08/29/17 18:14 Ordered 4 mg PO Q4H PRN Piperacillin/Tazobactam [Piperacil-Tazobact] 4.5 gm Med 08/29/17 18:15 Ordered Sodium Chloride 0.9% [Normal Saline] 100 ml IV Q6H Vancomycin Pharmacy to Dose [Pharmacy to Dose - Med 08/29/17 18:15 Ordered Vancomycin] 1 dose .XX ASDIRECTED Blood Culture x2 Reflex Set [OM.PC] Stat Oth 08/29/17 18:14 Ordered Sequential Compression Device [OM.PC] Per Unit Routine Oth 08/29/17 18:16 Ordered Resuscitation Status Routine Resus Stat 08/29/17 18:14 Ordered Medication Orders Acetaminophen (Tylenol) 650 mg PO Q4H PRN PRN Reason: Pain (Mild 1-3)/fever Enoxaparin Sodium (Lovenox) 40 mg SUBCUT Q24H [facility] Piperacillin Sod/Tazobactam (Sod 4.5 gm/ Sodium Chloride) 100 mls @ 100 mls/hr IV Q6H [facility] Morphine Sulfate (Morphine) 2 mg IVPUSH Q2H PRN PRN Reason: Pain (severe 7-10) Stop: 08/30/17 18:16 Ondansetron HCl (Zofran Odt) 4 mg PO Q4H PRN PRN Reason: nausea, able to take PO Vancomycin HCl (Pharmacy To Dose - Vancomycin) 1 dose .XX ASDIRECTED [facility] Assessment/Plan Comment:: 52-year-old female with cellulitis of the left axilla. #1. Cellulitis of the left axilla: -CT of the left shoulder scheduled to rule out abscess. Dr. Donald, surgeon, has been contacted and told that the patient may have an abscess that we are just waiting for the results of the CT. He states he will see the patient if needs be. Patient is currently nothing by mouth until we had ruled out an abscess and no that no surgical intervention is needed. -CBC, CMP, lactic acid and blood cultures have been ordered and are pending. -Patient will be started on IV vancomycin and Zosyn. -IV morphine available for pain relief. DVT prophylaxis: SCDs and Lovenox Disposition: 2 to 4 days pending improvement.
[2017-08-29] MEDS ORDERED: Methotrexate 2.5 MG Tab PO SCH (18:30)
[2017-08-29] MEDS ORDERED: Iopamidol 755 Mg/ML 100 ML Bottle IVPUSH STA (19:20)
[2017-08-29] MEDS: Piperacillin/Tazobactam 4.5 GM in Sodium Chloride 0.9% 100 ML IV SCH (19:50)
[2017-08-29] MEDS ORDERED: Non-Formulary Medication 1 Each (Venlafaxine 75 MG) PO SCH (21:00)
[2017-08-29] MEDS ORDERED: CYANOCOBALAMIN 1000 MG PO SCH (21:00)
[2017-08-29] MEDS ORDERED: Cholecalciferol (Vitamin D3) 1,000 Unit Tab PO SCH (21:00)
[2017-08-29] MEDS: Morphine 4 MG/ML Syringe IVPUSH PRN ×2 (21:12→23:16)
[2017-08-29] MEDS: Cyanocobalamin (Vitamin B12) 500 MCG Tab PO SCH (21:14)
[2017-08-29] MEDS: Folic Acid 1 MG Tab PO SCH (21:16)
[2017-08-29] MEDS: Venlafaxine 75 MG Cap.ER PO SCH (21:16)
[2017-08-29] MEDS: hydrOXYzine HCl 25 MG Tab PO SCH (21:16)
[2017-08-29] MEDS: Enoxaparin 40 MG/0.4 ML Syringe SUBCUT SCH (21:16)
[2017-08-30] MEDS: Acetaminophen/oxyCODONE 325-10 MG Tab PO PRN ×5 (00:41→22:17)
[2017-08-30] MEDS: Piperacillin/Tazobactam 4.5 GM in Sodium Chloride 0.9% 100 ML IV SCH ×4 (02:10→20:42)
[2017-08-30 07:42] LABS: CHLORIDE,CL 104 mmol/L (98-107); SODIUM,NA 139 mmol/L (136-145)
--- NOTE | 2017-08-30 12:45 | PCM.PN ---
- Review of Systems Systems Review Comment:: feeling better, no noticeable change in redness, pain controlled. - Patient Data Vitals - Most Recent: Last Vital Signs Temp 36.4 C 08/30/17 08:39 Pulse 88 08/30/17 08:39 Resp 16 08/30/17 08:39 BP 122/68 08/30/17 08:39 Pulse Ox 92 L 08/30/17 08:39 Weight - Most Recent: 72.57 kg I&O - Last 24 Hours: Intake & Output 08/29/17 08/30/17 08/30/17 22:59 06:59 14:59 Intake Total 350 Balance 350 Lab Results Last 24 Hours: Laboratory Results - last 24 hr 08/29/17 08/29/17 08/29/17 Range/Units 18:32 18:32 18:32 WBC 10.75 (4.0-11.0) K/uL RBC 5.27 (4.30-5.90) M/uL Hgb 14.0 (12.0-16.0) g/dL Hct 42.3 (36.0-46.0) % MCV 80.3 (80.0-98.0) fL MCH 26.6 L (27.0-32.0) pg MCHC 33.1 (31.0-37.0) g/dL RDW Std Deviation 41.3 (28.0-62.0) fl RDW Coeff of Rashaun 14 (11.0-15.0) % Plt Count 298 (150-400) K/uL MPV 8.80 (7.40-12.00) fL Neut % (Auto) 78.3 (48.0-80.0) % Lymph % (Auto) 14.6 L (16.0-40.0) % Dubois % (Auto) 6.3 (0.0-15.0) % Eos % (Auto) 0.7 (0.0-7.0) % Baso % (Auto) 0.1 (0.0-1.5) % Neut # (Auto) 8.4 H (1.4-5.7) K/uL Lymph # (Auto) 1.6 (0.6-2.4) K/uL Dubois # (Auto) 0.7 (0.0-0.8) K/uL Eos # (Auto) 0.1 (0.0-0.7) K/uL Baso # (Auto) 0.0 (0.0-0.1) K/uL Nucleated RBC % 0.0 /100WBC Nucleated RBCs # 0 K/uL Lactate 1.6 (0.20-2.00) mmol/L Sodium 138 (136-145) mmol/L Potassium 3.8 (3.5-5.1) mmol/L Chloride 101 (98-107) mmol/L Carbon Dioxide 20.3 L (21.0-32.0) mmol/L BUN 19 H (7.0-18.0) mg/dL Creatinine 1.1 H (0.6-1.0) mg/dL Est Cr Clr Drug Dosing 54.36 mL/min Estimated GFR (MDRD) 52.4 ml/min Glucose 159 H (74-106) mg/dL Calcium 9.3 (8.5-10.1) mg/dL Total Bilirubin 0.1 L (0.2-1.0) mg/dL AST 17 (15-37) IU/L ALT 21 (14-63) IU/L Alkaline Phosphatase 139 H (46-116) U/L Total Protein 7.5 (6.4-8.2) g/dL Albumin 3.0 L (3.4-5.0) g/dL Globulin 4.5 H (2.0-3.5) g/dL Albumin/Globulin Ratio 0.7 L (1.3-2.8) 08/30/17 08/30/17 Range/Units 07:05 07:05 WBC 8.78 (4.0-11.0) K/uL RBC 4.83 (4.30-5.90) M/uL Hgb 12.6 (12.0-16.0) g/dL Hct 39.3 (36.0-46.0) % MCV 81.4 (80.0-98.0) fL MCH 26.1 L (27.0-32.0) pg MCHC 32.1 (31.0-37.0) g/dL RDW Std Deviation 42.4 (28.0-62.0) fl RDW Coeff of Rashaun 14 (11.0-15.0) % Plt Count 292 (150-400) K/uL MPV 8.50 (7.40-12.00) fL Neut % (Auto) 69.6 (48.0-80.0) % Lymph % (Auto) 19.9 (16.0-40.0) % Dubois % (Auto) 8.9 (0.0-15.0) % Eos % (Auto) 1.4 (0.0-7.0) % Baso % (Auto) 0.2 (0.0-1.5) % Neut # (Auto) 6.1 H (1.4-5.7) K/uL Lymph # (Auto) 1.8 (0.6-2.4) K/uL Dubois # (Auto) 0.8 (0.0-0.8) K/uL Eos # (Auto) 0.1 (0.0-0.7) K/uL Baso # (Auto) 0.0 (0.0-0.1) K/uL Nucleated RBC % 0.0 /100WBC Nucleated RBCs # 0 K/uL Lactate (0.20-2.00) mmol/L Sodium 139 (136-145) mmol/L Potassium 4.0 (3.5-5.1) mmol/L Chloride 104 (98-107) mmol/L Carbon Dioxide 26.3 (21.0-32.0) mmol/L BUN 17 (7.0-18.0) mg/dL Creatinine 0.9 (0.6-1.0) mg/dL Est Cr Clr Drug Dosing 66.44 mL/min Estimated GFR (MDRD) > 60.0 ml/min Glucose 111 H (74-106) mg/dL Calcium 8.9 (8.5-10.1) mg/dL Total Bilirubin 0.2 (0.2-1.0) mg/dL AST 12 L (15-37) IU/L ALT 17 (14-63) IU/L Alkaline Phosphatase 123 H (46-116) U/L Total Protein 6.7 (6.4-8.2) g/dL Albumin 2.7 L (3.4-5.0) g/dL Globulin 4.0 H (2.0-3.5) g/dL Albumin/Globulin Ratio 0.7 L (1.3-2.8) Med Orders - Current: Current Medications Acetaminophen (Tylenol) 650 mg PO Q4H PRN PRN Reason: Pain (Mild 1-3)/fever Cyanocobalamin (Vitamin B12) 250 mcg PO BEDTIME [facility] Last Admin: 08/29/17 21:14 Dose: 250 mcg Enoxaparin Sodium (Lovenox) 40 mg SUBCUT BEDTIME [facility] Last Admin: 08/29/17 21:16 Dose: 40 mg Folic Acid (Folic Acid) 1 mg PO BEDTIME [facility] Last Admin: 08/29/17 21:16 Dose: 1 mg Hydroxyzine HCl (Atarax) 25 mg PO BEDTIME [facility] Last Admin: 08/29/17 21:16 Dose: 25 mg Piperacillin Sod/Tazobactam (Sod 4.5 gm/ Sodium Chloride) 100 mls @ 100 mls/hr IV Q6H [facility] Last Admin: 08/30/17 08:37 Dose: 100 mls/hr Vancomycin HCl 1 gm/ Sodium (Chloride) 250 mls @ 166 mls/hr IV Q12H [facility] Last Admin: 08/30/17 10:12 Dose: 75 mls/hr Morphine Sulfate (Morphine) 2 mg IVPUSH Q2H PRN PRN Reason: Pain (severe 7-10) Stop: 08/30/17 18:16 Last Admin: 08/29/17 23:16 Dose: 2 mg Ondansetron HCl (Zofran Odt) 4 mg PO Q4H PRN PRN Reason: nausea, able to take PO Oxycodone/Acetaminophen (Percocet 325-10 Mg) 1 - 2 tab PO Q4H PRN PRN Reason: Pain Last Admin: 08/30/17 08:38 Dose: 1 tab Vancomycin HCl (Pharmacy To Dose - Vancomycin) 1 dose .XX ASDIRECTED [facility] Venlafaxine HCl (Effexor Xr) 75 mg PO BEDTIME [facility] Last Admin: 08/29/17 21:16 Dose: 75 mg Zaleplon (Sonata) 10 mg PO BEDTIME PRN PRN Reason: INSOMNIA Last Admin: 08/29/17 21:15 Dose: 10 mg Discontinued Medications Piperacillin Sod/Tazobactam (Sod 4.5 gm/ Sodium Chloride) 100 mls @ 100 mls/hr IV Q6H [facility] Last Admin: 08/29/17 18:55 Dose: Not Given Iopamidol (Isovue-370 (76%)) 100 ml IVPUSH ONETIME STA Stop: 08/29/17 19:21 Last Admin: 08/29/17 19:21 Dose: 100 ml Methotrexate (Methotrexate) 15 mg PO Q7D [facility] Last Admin: 08/29/17 21:30 Dose: Not Given - Exam General: Alert, Oriented Cardiovascular: Regular Rate, Regular Rhythm GI/Abdominal Exam: Soft, Non-Tender Extremities: No Pedal Edema Skin: Other (edema and erythema of right axilla minimal change, no area of drainage or fluctuance, 2-3cm focus of induration) - Problem List Review Problem List Initiated/Reviewed/Updated: Yes - My Orders Last 24 Hours: My Active Orders 08/29/17 Dinner Regular Diet [DIET] - Plan Plan:: 52-year-old female with cellulitis of the left axilla. #1. Cellulitis of the left axilla: continue vancomycin and zosyn, CT did not show any abscess.
[2017-08-30] MEDS: Enoxaparin 40 MG/0.4 ML Syringe SUBCUT SCH (20:43)
[2017-08-30] MEDS: Folic Acid 1 MG Tab PO SCH (20:46)
[2017-08-30] MEDS: Venlafaxine 75 MG Cap.ER PO SCH (20:46)
[2017-08-30] MEDS: Cyanocobalamin (Vitamin B12) 500 MCG Tab PO SCH (20:46)
[2017-08-30] MEDS: hydrOXYzine HCl 25 MG Tab PO SCH (20:47)
[2017-08-31] MEDS: Acetaminophen/oxyCODONE 325-10 MG Tab PO PRN ×5 (02:19→20:51)
[2017-08-31] MEDS: Piperacillin/Tazobactam 4.5 GM in Sodium Chloride 0.9% 100 ML IV SCH ×4 (02:21→20:44)
[2017-08-31] MEDS: HYDROmorphone 1 MG/ML Syringe IVPUSH PRN (03:35)
--- NOTE | 2017-08-31 08:42 | PCM.PN ---
- Review of Systems Systems Review Comment:: nausea and myalgias improving, had alot of arm pain last night. - Patient Data Vitals - Most Recent: Last Vital Signs Temp 36.8 C 08/31/17 08:00 Pulse 88 08/31/17 08:00 Resp 19 08/31/17 08:00 BP 119/72 08/31/17 08:00 Pulse Ox 97 08/31/17 08:00 Weight - Most Recent: 72.57 kg I&O - Last 24 Hours: Intake & Output 08/30/17 08/31/17 08/31/17 22:59 06:59 14:59 Intake Total 1636 100 Balance 1636 100 Arley Results Last 24 Hours: Microbiology 08/29/17 18:44 Aerobic Blood Culture - Preliminary Blood - Venous - Lab Draw NO GROWTH AFTER 1 DAY Anaerobic Blood Culture - Preliminary NO GROWTH AFTER 1 DAY 08/29/17 18:32 Aerobic Blood Culture - Preliminary Blood - Venous NO GROWTH AFTER 1 DAY Anaerobic Blood Culture - Preliminary NO GROWTH AFTER 1 DAY Med Orders - Current: Current Medications Acetaminophen (Tylenol) 650 mg PO Q4H PRN PRN Reason: Pain (Mild 1-3)/fever Cyanocobalamin (Vitamin B12) 250 mcg PO BEDTIME [facility] Last Admin: 08/30/17 20:46 Dose: 250 mcg Enoxaparin Sodium (Lovenox) 40 mg SUBCUT BEDTIME [facility] Last Admin: 08/30/17 20:43 Dose: 40 mg Folic Acid (Folic Acid) 1 mg PO BEDTIME [facility] Last Admin: 08/30/17 20:46 Dose: 1 mg Hydromorphone HCl (Dilaudid) 1 mg IVPUSH Q3H PRN PRN Reason: Pain (severe 7-10) Last Admin: 08/31/17 03:35 Dose: 1 mg Hydroxyzine HCl (Atarax) 25 mg PO BEDTIME [facility] Last Admin: 08/30/17 20:47 Dose: 25 mg Piperacillin Sod/Tazobactam (Sod 4.5 gm/ Sodium Chloride) 100 mls @ 100 mls/hr IV Q6H [facility] Last Admin: 08/31/17 08:01 Dose: 100 mls/hr Vancomycin HCl 1 gm/ Sodium (Chloride) 250 mls @ 166 mls/hr IV Q12H [facility] Last Admin: 08/30/17 22:19 Dose: 75 mls/hr Ondansetron HCl (Zofran Odt) 4 mg PO Q4H PRN PRN Reason: nausea, able to take PO Oxycodone/Acetaminophen (Percocet 325-10 Mg) 1 - 2 tab PO Q4H PRN PRN Reason: Pain Last Admin: 08/31/17 07:37 Dose: 2 tab Vancomycin HCl (Pharmacy To Dose - Vancomycin) 1 dose .XX ASDIRECTED [facility] Venlafaxine HCl (Effexor Xr) 75 mg PO BEDTIME [facility] Last Admin: 08/30/17 20:46 Dose: 75 mg Zaleplon (Sonata) 10 mg PO BEDTIME PRN PRN Reason: INSOMNIA Last Admin: 08/29/17 21:15 Dose: 10 mg Discontinued Medications Piperacillin Sod/Tazobactam (Sod 4.5 gm/ Sodium Chloride) 100 mls @ 100 mls/hr IV Q6H [facility] Last Admin: 08/29/17 18:55 Dose: Not Given Iopamidol (Isovue-370 (76%)) 100 ml IVPUSH ONETIME STA Stop: 08/29/17 19:21 Last Admin: 08/29/17 19:21 Dose: 100 ml Methotrexate (Methotrexate) 15 mg PO Q7D [facility] Last Admin: 08/29/17 21:30 Dose: Not Given Morphine Sulfate (Morphine) 2 mg IVPUSH Q2H PRN PRN Reason: Pain (severe 7-10) Stop: 08/30/17 18:16 Last Admin: 08/29/17 23:16 Dose: 2 mg - Exam General: Alert, Oriented Neck: Supple Lungs: Clear to Auscultation Cardiovascular: Regular Rate, Regular Rhythm GI/Abdominal Exam: Normal Bowel Sounds, Soft, Non-Tender Extremities: No Pedal Edema Skin: Other (edema and erythema of left axila slightly better compared to yesterday) - Problem List Review Problem List Initiated/Reviewed/Updated: Yes - My Orders Last 24 Hours: My Active Orders 08/30/17 21:23 HYDROmorphone [Dilaudid] 1 mg IVPUSH Q3H PRN - Plan Plan:: 52-year-old female with cellulitis of the left axilla. Cellulitis of the left axilla: continue vancomycin and zosyn, CT did not show any abscess. awaiting morning labs.
[2017-08-31 10:25] LABS: CHLORIDE,CL 105 mmol/L (98-107); SODIUM,NA 140 mmol/L (136-145)
[2017-08-31] MEDS: Cyanocobalamin (Vitamin B12) 500 MCG Tab PO SCH (20:55)
[2017-08-31] MEDS: Venlafaxine 75 MG Cap.ER PO SCH (20:56)
[2017-08-31] MEDS: hydrOXYzine HCl 25 MG Tab PO SCH (20:56)
[2017-08-31] MEDS: Enoxaparin 40 MG/0.4 ML Syringe SUBCUT SCH (20:57)
[2017-08-31] MEDS: Folic Acid 1 MG Tab PO SCH (21:02)
[2017-09-01] MEDS: Acetaminophen/oxyCODONE 325-10 MG Tab PO PRN ×5 (01:34→22:40)
[2017-09-01] MEDS: Piperacillin/Tazobactam 4.5 GM in Sodium Chloride 0.9% 100 ML IV SCH ×4 (01:37→20:00)
[2017-09-01 06:30] LABS: CHLORIDE,CL 105 mmol/L (98-107); SODIUM,NA 138 mmol/L (136-145)
--- NOTE | 2017-09-01 08:18 | PCM.PN ---
- General Info Date of Service: 09/01/17 Admission Dx/Problem (Free Text): Admission Diagnosis/Problem Admission Diagnosis/Problem Cellulitis Subjective Update: Feeling ok this morning, having pain to her left axilla, some drainage noted overnight. Pain has improved some along with redness. No chest pain or SOB. tired this morning, didnt sleep well. Functional Status: Reports: Pain Controlled, Tolerating Diet, Ambulating, Urinating - Review of Systems General: Reports: Fatigue. Denies: Fever HEENT: Reports: No Symptoms. Denies: Headaches, Sore Throat Pulmonary: Reports: No Symptoms. Denies: Shortness of Breath, Cough, Sputum Cardiovascular: Reports: No Symptoms. Denies: Chest Pain, Edema Gastrointestinal: Reports: Nausea (after L axilla started draining). Denies: Abdominal Pain Genitourinary: Reports: No Symptoms Skin: Reports: No Symptoms Neurological: Reports: No Symptoms Psychiatric: Reports: No Symptoms - Patient Data Vitals - Most Recent: Last Vital Signs Temp 96.3 F 09/01/17 08:00 Pulse 74 09/01/17 08:00 Resp 18 09/01/17 08:00 BP 120/73 09/01/17 08:00 Pulse Ox 97 09/01/17 08:00 Weight - Most Recent: 72.57 kg I&O - Last 24 Hours: Intake & Output 08/31/17 09/01/17 09/01/17 22:59 06:59 14:59 Intake Total 350 800 Balance 350 800 Lab Results Last 24 Hours: Laboratory Results - last 24 hr 08/31/17 08/31/17 08/31/17 Range/Units 09:45 09:45 09:45 WBC 6.18 (4.0-11.0) K/uL RBC 4.44 (4.30-5.90) M/uL Hgb 11.6 L (12.0-16.0) g/dL Hct 36.5 (36.0-46.0) % MCV 82.2 (80.0-98.0) fL MCH 26.1 L (27.0-32.0) pg MCHC 31.8 (31.0-37.0) g/dL RDW Std Deviation 42.3 (28.0-62.0) fl RDW Coeff of Rashaun 14 (11.0-15.0) % Plt Count 270 (150-400) K/uL MPV 8.50 (7.40-12.00) fL Neut % (Auto) 71.0 (48.0-80.0) % Lymph % (Auto) 20.1 (16.0-40.0) % [place] % (Auto) 6.6 (0.0-15.0) % Eos % (Auto) 2.1 (0.0-7.0) % Baso % (Auto) 0.2 (0.0-1.5) % Neut # (Auto) 4.4 (1.4-5.7) K/uL Lymph # (Auto) 1.2 (0.6-2.4) K/uL [place] # (Auto) 0.4 (0.0-0.8) K/uL Eos # (Auto) 0.1 (0.0-0.7) K/uL Baso # (Auto) 0.0 (0.0-0.1) K/uL Nucleated RBC % 0.0 /100WBC Nucleated RBCs # 0 K/uL Sodium 140 (136-145) mmol/L Potassium 3.6 (3.5-5.1) mmol/L Chloride 105 (98-107) mmol/L Carbon Dioxide 24.8 (21.0-32.0) mmol/L BUN 15 (7.0-18.0) mg/dL Creatinine 0.9 (0.6-1.0) mg/dL Est Cr Clr Drug Dosing 66.44 mL/min Estimated GFR (MDRD) > 60.0 ml/min Glucose 179 H (74-106) mg/dL Calcium 8.7 (8.5-10.1) mg/dL Total Bilirubin 0.2 (0.2-1.0) mg/dL AST 28 (15-37) IU/L ALT 36 (14-63) IU/L Alkaline Phosphatase 111 (46-116) U/L Total Protein 6.2 L (6.4-8.2) g/dL Albumin 2.4 L (3.4-5.0) g/dL Globulin 3.8 H (2.0-3.5) g/dL Albumin/Globulin Ratio 0.6 L (1.3-2.8) Vancomycin Trough 9.8 (5.0-10.0) ug/mL 09/01/17 09/01/17 Range/Units 05:50 05:50 WBC 6.09 (4.0-11.0) K/uL RBC 4.31 (4.30-5.90) M/uL Hgb 11.2 L (12.0-16.0) g/dL Hct 35.3 L (36.0-46.0) % MCV 81.9 (80.0-98.0) fL MCH 26.0 L (27.0-32.0) pg MCHC 31.7 (31.0-37.0) g/dL RDW Std Deviation 42.5 (28.0-62.0) fl RDW Coeff of Rashaun 14 (11.0-15.0) % Plt Count 278 (150-400) K/uL MPV 8.60 (7.40-12.00) fL Neut % (Auto) 66.5 (48.0-80.0) % Lymph % (Auto) 23.6 (16.0-40.0) % [place] % (Auto) 7.2 (0.0-15.0) % Eos % (Auto) 2.5 (0.0-7.0) % Baso % (Auto) 0.2 (0.0-1.5) % Neut # (Auto) 4.1 (1.4-5.7) K/uL Lymph # (Auto) 1.4 (0.6-2.4) K/uL [place] # (Auto) 0.4 (0.0-0.8) K/uL Eos # (Auto) 0.2 (0.0-0.7) K/uL Baso # (Auto) 0.0 (0.0-0.1) K/uL Nucleated RBC % 0.0 /100WBC Nucleated RBCs # 0 K/uL Sodium 138 (136-145) mmol/L Potassium 4.0 (3.5-5.1) mmol/L Chloride 105 (98-107) mmol/L Carbon Dioxide 25.1 (21.0-32.0) mmol/L BUN 10 (7.0-18.0) mg/dL Creatinine 0.8 (0.6-1.0) mg/dL Est Cr Clr Drug Dosing 74.74 mL/min Estimated GFR (MDRD) > 60.0 ml/min Glucose 104 (74-106) mg/dL Calcium 8.6 (8.5-10.1) mg/dL Total Bilirubin 0.1 L (0.2-1.0) mg/dL AST 24 (15-37) IU/L ALT 36 (14-63) IU/L Alkaline Phosphatase 104 (46-116) U/L Total Protein 6.1 L (6.4-8.2) g/dL Albumin 2.4 L (3.4-5.0) g/dL Globulin 3.7 H (2.0-3.5) g/dL Albumin/Globulin Ratio 0.7 L (1.3-2.8) Vancomycin Trough (5.0-10.0) ug/mL [place] Results Last 24 Hours: Microbiology 08/29/17 18:44 Aerobic Blood Culture - Preliminary Blood - Venous - Lab Draw NO GROWTH AFTER 2 DAYS Anaerobic Blood Culture - Preliminary NO GROWTH AFTER 2 DAYS 08/29/17 18:32 Aerobic Blood Culture - Preliminary Blood - Venous NO GROWTH AFTER 2 DAYS Anaerobic Blood Culture - Preliminary NO GROWTH AFTER 2 DAYS Med Orders - Current: Current Medications Acetaminophen (Tylenol) 650 mg PO Q4H PRN PRN Reason: Pain (Mild 1-3)/fever Cyanocobalamin (Vitamin B12) 250 mcg PO BEDTIME [facility] Last Admin: 08/31/17 20:55 Dose: 250 mcg Enoxaparin Sodium (Lovenox) 40 mg SUBCUT BEDTIME [facility] Last Admin: 08/31/17 20:57 Dose: 40 mg Folic Acid (Folic Acid) 1 mg PO BEDTIME [facility] Last Admin: 08/31/17 21:02 Dose: 1 mg Hydromorphone HCl (Dilaudid) 1 mg IVPUSH Q3H PRN PRN Reason: Pain (severe 7-10) Last Admin: 08/31/17 03:35 Dose: 1 mg Hydroxyzine HCl (Atarax) 25 mg PO BEDTIME [facility] Last Admin: 08/31/17 20:56 Dose: 25 mg Piperacillin Sod/Tazobactam (Sod 4.5 gm/ Sodium Chloride) 100 mls @ 100 mls/hr IV Q6H [facility] Last Admin: 09/01/17 01:37 Dose: 100 mls/hr Vancomycin HCl 1 gm/ Sodium (Chloride) 250 mls @ 166 mls/hr IV Q12H [facility] Last Admin: 08/31/17 22:06 Dose: 75 mls/hr Ondansetron HCl (Zofran Odt) 4 mg PO Q4H PRN PRN Reason: nausea, able to take PO Oxycodone/Acetaminophen (Percocet 325-10 Mg) 1 - 2 tab PO Q4H PRN PRN Reason: Pain Last Admin: 09/01/17 05:19 Dose: 1 tab Vancomycin HCl (Pharmacy To Dose - Vancomycin) 1 dose .XX ASDIRECTED [facility] Venlafaxine HCl (Effexor Xr) 75 mg PO BEDTIME [facility] Last Admin: 08/31/17 20:56 Dose: 75 mg Zaleplon (Sonata) 10 mg PO BEDTIME PRN PRN Reason: INSOMNIA Last Admin: 08/29/17 21:15 Dose: 10 mg Discontinued Medications Piperacillin Sod/Tazobactam (Sod 4.5 gm/ Sodium Chloride) 100 mls @ 100 mls/hr IV Q6H [facility] Last Admin: 08/29/17 18:55 Dose: Not Given Iopamidol (Isovue-370 (76%)) 100 ml IVPUSH ONETIME STA Stop: 08/29/17 19:21 Last Admin: 08/29/17 19:21 Dose: 100 ml Methotrexate (Methotrexate) 15 mg PO Q7D [facility] Last Admin: 08/29/17 21:30 Dose: Not Given Morphine Sulfate (Morphine) 2 mg IVPUSH Q2H PRN PRN Reason: Pain (severe 7-10) Stop: 08/30/17 18:16 Last Admin: 08/29/17 23:16 Dose: 2 mg - Exam General: Alert, Oriented, Cooperative, No Acute Distress Lungs: Clear to Auscultation, Normal Respiratory Effort Cardiovascular: Regular Rate, Regular Rhythm Back Exam: Normal Inspection, Full Range of Motion Extremities: Normal Inspection, Normal Range of Motion, Non-Tender, No Pedal Edema, Normal Capillary Refill, Other (baseline, contractures secondary to RA.) Wound/Incisions: Drainage (L axilla abscess started draining this morning after ultrasound, purulent drainage from larger abscess, has second white head noted further in axilla, but this has less erythema and pain. More distal head is draining with induration surrounding it, little fluctuance noted. ), Erythema Improving Neurological: No New Focal Deficit Psy/Mental Status: Alert, Normal Affect, Normal Mood - Problem List & Annotations (1) Abscess SNOMED Code(s): 417412596 Code(s): L02.91 - CUTANEOUS ABSCESS, UNSPECIFIED Status: Acute Current Visit: Yes (2) Cellulitis SNOMED Code(s): 246376007 Code(s): L03.90 - CELLULITIS, UNSPECIFIED Status: Acute Current Visit: No Qualifiers: Site of cellulitis of extremity: axilla Laterality: left (3) Depression SNOMED Code(s): 97839302 Code(s): F32.9 - MAJOR DEPRESSIVE DISORDER, SINGLE EPISODE, UNSPECIFIED Status: Chronic Current Visit: No Qualifiers: Depression Type: unspecified Qualified Code(s): F32.9 - Major depressive disorder, single episode, unspecified (4) Osteoarthritis SNOMED Code(s): 996975854 Code(s): M19.90 - UNSPECIFIED OSTEOARTHRITIS, UNSPECIFIED SITE Status: Chronic Current Visit: No Qualifiers: Osteoarthritis location: multiple joints (5) Rheumatoid arthritis SNOMED Code(s): 02633032 Code(s): M06.9 - RHEUMATOID ARTHRITIS, UNSPECIFIED Status: Chronic Current Visit: No Qualifiers: Rheumatoid arthritis location: multiple sites Rheumatoid factor presence: unspecified presence Qualified Code(s): M06.9 - Rheumatoid arthritis, unspecified - Problem List Review Problem List Initiated/Reviewed/Updated: Yes - Plan Plan:: 52-year-old female with cellulitis and abscess of the left axilla. 1. Cellulitis of the left axilla: No leukocytosis or fevers noted overnight. Continue vancomycin and zosyn. Ultrasound obtained this morning reveals subcutaneous phlegmon versus early abscess within the left axilla region with extension to the skin surface, moderate adjacent edema/cellulitis. Consulted Dr Abad for I&D today, he will see patient this evening. Abscess draining, wound culture obtained. Blood cultures negative. VTE prophylaxis: Hold Lovenox per Dr Abad recommendations for bedside I&D. SCDs. Dispo: 1-2 days pending improvement.
[2017-09-01] MEDS: HYDROmorphone 1 MG/ML Syringe IVPUSH PRN ×2 (08:40→12:06)
--- NOTE | 2017-09-01 09:29 | US ---
EXAMINATION: Left axillary ultrasound HISTORY: Abscess COMPARISON: CT dated 08/29/2017 TECHNIQUE: Grayscale and color Doppler imaging obtained. FINDINGS: There is moderate subcutaneous edema noted within the region of concern within the left axi lla. There is an ill-defined hypoechoic collection versus phlegmon also noted within the immediate re gion of concern. This appears to track to the skin. Oozing was noted by the technologist. IMPRESSION: 1. Subcutaneous phlegmon versus early abscess within the left axillary region with extension to the s kin surface. Moderate adjacent edema/cellulitis.
--- NOTE | 2017-09-01 09:32 | CT ---
EXAM DATE: 08/29/17 PATIENT'S AGE: 52 Patient: KAROL VALENCIA Facility: [place], [place] Site . Site : [id number] Study: CT Shoulder Left w cont [id number]/[id number] 7:30:40 PM Ordering Physician: Genesis Salguero Final Report: HISTORY: Pain, swelling and redness. FINDINGS: The left axillary region was studied in the axial plane after intravenous administration of 100 mL of Isovue-370. Sagittal and coronal 2 dimensional reconstructions were then performed. There is a large irregular, poorly defined, masslike area of increased soft tissue density in the subcutaneous fat of the left axillary region extending inferiorly. This has poorly defined irregular margins with rough dimension on the order of 5 x 9 x 7 cm. There are some smaller components of intervening fat. No fluid-like nature is appreciated. There is additional diffuse stranding in the adjacent subcutaneous fat which is not discretely masslike. No other soft tissue abnormality is noted. No bony abnormality is noted to suggest fracture or osteomyelitis. Degenerative arthritic changes are noted of the shoulder joint and acromioclavicular joint. IMPRESSION: Irregular masslike area of abnormal soft tissue density in the left axillary region. In the setting of infection these findings could represent localized induration and infection. There are no findings for a fluid collection such as abscess or hematoma. The possibility for tumor should also be considered. This could represent some form a primary soft tissue malignancy or unusual adenopathy. Please note that all CT scans at this facility use dose modulation, iterative reconstruction, and/or weight-based dosing when appropriate to reduce radiation dose to as low as reasonably achievable. Dictated by Arthur Lucio MD @ Aug 30 2017 10:04AM (Electronic Signature) Report Signed by Proxy. CHANG
[2017-09-01] MEDS ORDERED: Lidocaine 1% with EPINEPHrine 1:100,000 20 ML MDV INJECT ONE (12:30)
--- NOTE | 2017-09-01 12:46 | PCM.OPNOTE ---
- General Post-Op/Procedure Note Date of Surgery/Procedure: 09/01/17 Operative Procedure(s): i/d L breast abscess Findings: 350 cc purulent/foul smelling/liquidfied necrosis; 2 cavity Pre Op Diagnosis: sub abscess L breast Post-Op Diagnosis: Same Anesthesia Technique: Local Primary Surgeon: Ilir Abad Pathology: cx sent Complications: None Condition: Good Free Text/Narrative:: Intake & Output 08/31/17 09/01/17 09/01/17 22:59 06:59 14:59 Intake Total 350 800 Balance 350 800
--- NOTE | 2017-09-01 12:49 | PCM.SN ---
- Free Text/Narrative Note: seen, chart reviewed; L breast sq abscess, would benefit from timely i/d; pt concurred; [id number] cx dictated procedure note dictated, [id number]; postop care; pt would need abx script, after culture results, and pain meds, packing w drsg change daily X 1 wk; fu 1 wk; tks for the consult and care of this pleasant patient
[2017-09-01] MEDS ORDERED: Sodium Chloride 0.9% 100 ML ONE (14:56)
[2017-09-01] MEDS: Folic Acid 1 MG Tab PO SCH (21:15)
[2017-09-01] MEDS: Venlafaxine 75 MG Cap.ER PO SCH (21:15)
[2017-09-01] MEDS: hydrOXYzine HCl 25 MG Tab PO SCH (21:16)
[2017-09-01] MEDS: Cyanocobalamin (Vitamin B12) 500 MCG Tab PO SCH (21:16)
[2017-09-02] MEDS: Piperacillin/Tazobactam 4.5 GM in Sodium Chloride 0.9% 100 ML IV SCH ×3 (01:54→15:31)
[2017-09-02] MEDS: Acetaminophen/oxyCODONE 325-10 MG Tab PO PRN ×3 (03:13→12:44)
[2017-09-02 06:20] LABS: CHLORIDE,CL 107 mmol/L (98-107); SODIUM,NA 142 mmol/L (136-145)
--- NOTE | 2017-09-02 09:07 | PCM.DCSUM1 ---
Discharge Summary - Hospital Course Brief History: 52-year-old female with a history of rheumatoid arthritis, osteoarthritis and depression, was a direct admit secondary to cellulitis in the left axilla. Patient was initially seen for this lesion in the left axilla on August 23, 2017 in the ER. At that time the lesion was only 2 cm x 1 cm and the patient was discharged home with Bactrim and pain medications. The patient notes that the antibiotic did not help resolve the lesion. Patient states that the lesion is now quite a bit larger and causing a lot more pain. She has pain with any movement of the left shoulder. She is feeling pain not only in her left shoulder but over into the chest. She feels "pressure" in her left shoulder. She has had fevers and chills. Patient is also concerned because her daughter had MRSA in April and the patient was in close contact with her. The patient has no history of MRSA and no history of cellulitis. She is currently taking methotrexate for rheumatoid arthritis. She did not take her most recent dose which would've been last Friday because of the abscess in the left axilla. She currently denies any headaches, dizziness, palpitations, shortness of breath, wheezing, cough, abdominal pain, nausea, vomiting, constipation, diarrhea, fever. - Discharge Data Discharge Date: 09/02/17 Discharge Disposition: Home, Self-Care 01 Condition: Good - Discharge Diagnosis/Problem(s) (1) Abscess SNOMED Code(s): 259085444 ICD Code: L02.91 - CUTANEOUS ABSCESS, UNSPECIFIED Status: Acute Current Visit: Yes (2) Cellulitis SNOMED Code(s): 277343349 ICD Code: L03.90 - CELLULITIS, UNSPECIFIED Status: Acute Current Visit: No Qualifiers: Site of cellulitis of extremity: axilla Laterality: left (3) Depression SNOMED Code(s): 34082857 ICD Code: F32.9 - MAJOR DEPRESSIVE DISORDER, SINGLE EPISODE, UNSPECIFIED Status: Chronic Current Visit: No Qualifiers: Depression Type: unspecified Qualified Code(s): F32.9 - Major depressive disorder, single episode, unspecified (4) Osteoarthritis SNOMED Code(s): 309797536 ICD Code: M19.90 - UNSPECIFIED OSTEOARTHRITIS, UNSPECIFIED SITE Status: Chronic Current Visit: No Qualifiers: Osteoarthritis location: multiple joints (5) Rheumatoid arthritis SNOMED Code(s): 90636113 ICD Code: M06.9 - RHEUMATOID ARTHRITIS, UNSPECIFIED Status: Chronic Current Visit: No Qualifiers: Rheumatoid arthritis location: multiple sites Rheumatoid factor presence: unspecified presence Qualified Code(s): M06.9 - Rheumatoid arthritis, unspecified - Patient Summary/Data Operative Procedure(s) Performed: i/d L breast abscess Consults: Consultations 09/01/17 09:47 Consult to Physician [CONS] Routine - Patient Instructions Diet: Regular Diet as Tolerated Activity: No Strenuous Activities, Rest and Relax Today Showering/Bathing: No Showering, No Tub Bathing/Swimming (do not soak wound. ) Wound/Incision Care: Keep Operative Site/Wound Site Clean and Dry (Dressing changes with Dr Abad's nurse as previously scheduled with clinic. ) Notify Provider of: Fever, Increased Pain, Swelling and Redness, Drainage, Nausea and/or Vomiting - Discharge Plan Prescriptions/Med Rec: Clindamycin HCl [Cleocin] 450 mg PO Q6H #120 cap Home Medications: Home Meds Cholecalciferol (Vitamin D3) [Vitamin D3] 1,000 unit PO BEDTIME 07/06/16 [ History] Folic Acid 1 mg PO BEDTIME 07/06/16 [History] Zolpidem Tartrate [Ambien] 10 mg PO BEDTIME PRN 07/06/16 [History] Methotrexate 15 mg PO Q7D 06/18/17 [History] hydrOXYzine HCl [hydrOXYzine] 25 mg PO BEDTIME 06/18/17 [History] Acetaminophen/oxyCODONE [Percocet 325-10 MG] 1 - 2 tab PO Q4H PRN #80 tablet 06/05 [Rx] Cyanocobalamin (Vitamin B-12) [B-12] 250 mcg PO BEDTIME 08/29/17 [History] Venlafaxine HCl [Venlafaxine ER] 1 cap PO BEDTIME 08/29/17 [History] Acetaminophen/oxyCODONE [Percocet 325-10 MG] 1 - 2 tab PO Q4H PRN tablet [Rx] Clindamycin HCl [Cleocin] 450 mg PO Q6H #120 cap 09/02/17 [Rx] Patient Handouts: Acetaminophen; Oxycodone tablets, Skin Abscess, [id number] , Clindamycin capsules, Incision and Drainage, Care After, Docusate capsules Referrals: Ilir Abad MD [Physician] - 09/10/17 10:45 am - Discharge Summary/Plan Comment DC Time >30 min.: No Discharge Summary/Plan Comment: Discharge Diagnoses: L axilla cellulitis and abscess, suspected MRSA. RA OA Cherelle wsa admited and placed on IV Vancomycin and Zosyn due to failed outpatient management of cellulitis. Initial CT did not show abscess formation. She remained in the hospital due to pain and cellulitis. 09/01 the lower white head, did open and start draining, US was obtained with showed early abscess formation. Dr Abad was consulted and completed a beside I&D yesterday. Blood cultures remain negative x 3 days. Wound culture obtained after I&D still pending. Pain is much better and cellulitis continues to improve. She will have dressing changes with Dr Abad's nurse per Dr Abad's orders and will follow up with Dr Abad in one week. She continues to be afebrile and no leukocytosis. Dr Abad provided her with percocet for pain management. I will discharge her with 10 more days of Clindamycin for suspected MRSA abscess 450 mg Q6hr, total of 14 day course due to failed outpatient management. She is to follow up as scheduled with Dr Abad and return to ED or clinic if concerns should arise. - General Info Date of Service: 09/02/17 Admission Dx/Problem (Free Text: Admission Diagnosis/Problem Admission Diagnosis/Problem Cellulitis Subjective Update: Feeling much better today, not sleeping well here. No chest pain or SOB. L axilla pain is much improved and Percocet is helping. No concerns. Eager to be discharge home today. Functional Status: Reports: Pain Controlled, Tolerating Diet, Ambulating, Urinating - Review of Systems General: Reports: Fatigue. Denies: Fever, Weakness Pulmonary: Reports: No Symptoms. Denies: Shortness of Breath Cardiovascular: Reports: No Symptoms. Denies: Chest Pain Gastrointestinal: Reports: No Symptoms. Denies: Abdominal Pain, Nausea, Vomiting Genitourinary: Reports: No Symptoms. Denies: Dysuria, Frequency, Burning, Pain Musculoskeletal: Reports: No Symptoms Skin: Reports: Other (wound/redness improving to L axilla.) Neurological: Reports: No Symptoms Psychiatric: Reports: No Symptoms - Patient Data Vitals - Most Recent: Last Vital Signs Temp 96.5 F 09/02/17 07:49 Pulse 72 09/02/17 07:49 Resp 14 09/02/17 07:49 BP 133/89 09/02/17 07:49 Pulse Ox 94 L 09/02/17 07:49 Weight - Most Recent: 82.1 kg I&O - Last 24 hours: Intake & Output 09/01/17 09/02/17 09/02/17 22:59 06:59 14:59 Intake Total 1100 1150 100 Balance 1100 1150 100 Lab Results - Last 24 hrs: Laboratory Results - last 24 hr 09/02/17 09/02/17 Range/Units 05:15 05:15 WBC 5.91 (4.0-11.0) K/uL RBC 4.44 (4.30-5.90) M/uL Hgb 11.5 L (12.0-16.0) g/dL Hct 36.6 (36.0-46.0) % MCV 82.4 (80.0-98.0) fL MCH 25.9 L (27.0-32.0) pg MCHC 31.4 (31.0-37.0) g/dL RDW Std Deviation 42.3 (28.0-62.0) fl RDW Coeff of Rashaun 14 (11.0-15.0) % Plt Count 332 (150-400) K/uL MPV 8.70 (7.40-12.00) fL Neut % (Auto) 63.5 (48.0-80.0) % Lymph % (Auto) 26.9 (16.0-40.0) % [place] % (Auto) 6.1 (0.0-15.0) % Eos % (Auto) 3.2 (0.0-7.0) % Baso % (Auto) 0.3 (0.0-1.5) % Neut # (Auto) 3.8 (1.4-5.7) K/uL Lymph # (Auto) 1.6 (0.6-2.4) K/uL [place] # (Auto) 0.4 (0.0-0.8) K/uL Eos # (Auto) 0.2 (0.0-0.7) K/uL Baso # (Auto) 0.0 (0.0-0.1) K/uL Nucleated RBC % 0.0 /100WBC Nucleated RBCs # 0 K/uL Sodium 142 (136-145) mmol/L Potassium 4.1 (3.5-5.1) mmol/L Chloride 107 (98-107) mmol/L Carbon Dioxide 27.0 (21.0-32.0) mmol/L BUN 8 (7.0-18.0) mg/dL Creatinine 0.9 (0.6-1.0) mg/dL Est Cr Clr Drug Dosing 66.44 mL/min Estimated GFR (MDRD) > 60.0 ml/min Glucose 136 H (74-106) mg/dL Calcium 9.0 (8.5-10.1) mg/dL [facility] Results - Last 24 hrs: Microbiology 08/29/17 18:44 Aerobic Blood Culture - Preliminary Blood - Venous - Lab Draw NO GROWTH AFTER 3 DAYS Anaerobic Blood Culture - Preliminary NO GROWTH AFTER 3 DAYS 08/29/17 18:32 Aerobic Blood Culture - Preliminary Blood - Venous NO GROWTH AFTER 3 DAYS Anaerobic Blood Culture - Preliminary NO GROWTH AFTER 3 DAYS 09/01/17 12:35 Gram Stain - Preliminary Other - Axilla, Left Med Orders - Current: Current Medications Acetaminophen (Tylenol) 650 mg PO Q4H PRN PRN Reason: Pain (Mild 1-3)/fever Cyanocobalamin (Vitamin B12) 250 mcg PO BEDTIME [facility] Last Admin: 09/01/17 21:16 Dose: 250 mcg Folic Acid (Folic Acid) 1 mg PO BEDTIME [facility] Last Admin: 09/01/17 21:15 Dose: 1 mg Hydromorphone HCl (Dilaudid) 1 mg IVPUSH Q3H PRN PRN Reason: Pain (severe 7-10) Last Admin: 09/01/17 12:06 Dose: 1 mg Hydroxyzine HCl (Atarax) 25 mg PO BEDTIME [facility] Last Admin: 09/01/17 21:16 Dose: 25 mg Piperacillin Sod/Tazobactam (Sod 4.5 gm/ Sodium Chloride) 100 mls @ 100 mls/hr IV Q6H [facility] Last Admin: 09/02/17 07:43 Dose: 100 mls/hr Vancomycin HCl 1 gm/ Sodium (Chloride) 250 mls @ 166 mls/hr IV Q12H [facility] Last Admin: 09/01/17 22:30 Dose: 75 mls/hr Ondansetron HCl (Zofran Odt) 4 mg PO Q4H PRN PRN Reason: nausea, able to take PO Last Admin: 09/01/17 09:46 Dose: 4 mg Oxycodone/Acetaminophen (Percocet 325-10 Mg) 1 - 2 tab PO Q4H PRN PRN Reason: Pain Last Admin: 09/02/17 08:08 Dose: 2 tab Vancomycin HCl (Pharmacy To Dose - Vancomycin) 1 dose .XX ASDIRECTED [facility] Venlafaxine HCl (Effexor Xr) 75 mg PO BEDTIME [facility] Last Admin: 09/01/17 21:15 Dose: 75 mg Zaleplon (Sonata) 10 mg PO BEDTIME PRN PRN Reason: INSOMNIA Last Admin: 08/29/17 21:15 Dose: 10 mg Discontinued Medications Enoxaparin Sodium (Lovenox) 40 mg SUBCUT BEDTIME [facility] Last Admin: 08/31/17 20:57 Dose: 40 mg Piperacillin Sod/Tazobactam (Sod 4.5 gm/ Sodium Chloride) 100 mls @ 100 mls/hr IV Q6H [facility] Last Admin: 08/29/17 18:55 Dose: Not Given Sodium Chloride (Normal Saline) Confirm Administered Dose 100 mls @ as directed .ROUTE .STK-MED ONE Stop: 09/01/17 14:57 Last Admin: 09/01/17 15:47 Dose: Not Given Iopamidol (Isovue-370 (76%)) 100 ml IVPUSH ONETIME STA Stop: 08/29/17 19:21 Last Admin: 08/29/17 19:21 Dose: 100 ml Lidocaine/Epinephrine (Xylocaine 1% With Epinephrine 1:100,000) 20 ml INJECT ONETIME ONE Stop: 09/01/17 12:31 Last Admin: 09/01/17 12:08 Dose: 20 ml Methotrexate (Methotrexate) 15 mg PO Q7D [facility] Last Admin: 08/29/17 21:30 Dose: Not Given Morphine Sulfate (Morphine) 2 mg IVPUSH Q2H PRN PRN Reason: Pain (severe 7-10) Stop: 08/30/17 18:16 Last Admin: 08/29/17 23:16 Dose: 2 mg - Exam General: Reports: Alert, Oriented, Cooperative, No Acute Distress Neck: Reports: Supple Lungs: Reports: Clear to Auscultation, Normal Respiratory Effort Cardiovascular: Reports: Regular Rate, Regular Rhythm Back Exam: Reports: Normal Inspection, Full Range of Motion Extremities: Normal Inspection, Normal Range of Motion, Non-Tender, No Pedal Edema, Normal Capillary Refill Wound/Incisions: Reports: Healing Well, Dressing Dry and Intact, Drainage ( serous to bloody with packing in place), Erythema Improving (Cellulitis continues to improve along with edema. ) Neurological: Reports: No New Focal Deficit Psy/Mental Status: Reports: Alert, Normal Affect, Normal Mood
[2017-09-02 11:23] VITALS: BP 116/72
[2017-09-02] MEDS: HYDROmorphone 1 MG/ML Syringe IVPUSH PRN (13:14)
--- NOTE | 2017-09-02 15:04 | CONS ---
DATE OF CONSULTATION: 09/01/2017 DATE OF : 1965 PRIMARY CARE PHYSICIAN: None PCP Consult was called, and the patient was seen shortly after. CONCERNING QUESTION: Left axilla infection. HISTORY OF PRESENT ILLNESS: The patient is a [id number] lady complained over a 3-week history of a gradual onset of infection in the left armpit. She has been seen in emergency room, got some antibiotic, did not seem to work, and subsequently admitted 3 days ago to medical service. Imaging study shows collection. Surgery was then consulted. Currently the patient complains of pain as 11/10 on the pain scale. Denied prior episode. Denied nipple discharge. Denied nausea, vomiting, fever, chills, or diarrhea. PAST MEDICAL HISTORY: Significant for no diabetes, MS, CVA, or hypertension. PREVIOUS SURGERIES: Total abdominal hysterectomy. ALLERGIES: Please refer to nursing for details. MEDICATION: Please refer to nursing for details. SOCIAL HISTORY: The patient is a nonsmoker. No alcohol use. FAMILY HISTORY: Noncontributory. REVIEW OF SYSTEMS: Same as history of present illness. PHYSICAL EXAMINATION: The patient has fluctuance and excruciating tenderness in the left axilla, in fact, involves the outer quadrant of the left breast. The patient is currently taking antibiotics, Zosyn and vancomycin. Marking on the breast shows it is receding, the erythema. Area span is about 10 x 8 cm. Again is the left axilla in upper outer quadrant of the left breast. IMPRESSION: Subcutaneous abscess on the left axilla, left breast. Would benefit from timely incision and drainage. As a matter of fact, it is already draining and is already ruptured. Risks and benefits discussed with the patient including bleeding, infection, recurrence, and postop course. The patient concurred to proceed as planned. ADDENDUM: I and D done at bedside and the patient tolerated the procedure well and over 500 mL of liquified, foul-smelling, purulent drainage oozing out; looked like two cavities. See the op note. Area was packed. The patient was given a script for antibiotic when the culture and sensitivity come out, and we are also giving pain medication. The patient will need packing dressing change once a day, one-quarter inch iodoform gauze for probably about 5-7 days. The patient will have a followup appointment with me in 1 week from today. Thank you for the kind referral. SARAH / CARMITA /[id number]
--- NOTE | 2017-09-02 15:10 | OR ---
SURGEON: Ilir Abad MD DATE OF PROCEDURE: 09/01/2017 PREOPERATIVE DIAGNOSIS: Subcutaneous abscess in the left breast. POSTOPERATIVE DIAGNOSIS: Subcutaneous abscess in the left breast. PROCEDURE PERFORMED: Incision and drainage at the bedside. COMPLICATIONS: None. FINDINGS: Large amount, 350-400 mL of foul-smelling, purulent, liquefied necrosis draining out, and there appeared to be 2 cavities, but they are connected and connection tunnel is from the incision opening toward the left ear, aimed at that direction. PROCEDURE IN DETAIL: The patient was discussed with the procedure and risks and benefits discussed of the incision and drainage, complete postop course, and pain. The patient concurs. Informed consent signed in chart. The left breast was prepped and draped in sterile fashion. Local anesthetic 1% with epinephrine was infiltrated in the area. Using a 15 blade, incision was made at the draining area, which resulted in a gush of foul-smelling, liquified necrosis and, using a Q-tip, explored toward the other area, towards the left ear in that direction, and released another large amount of drainage. The area was then packed with quarter-inch iodoform gauze and appropriate dressing. Gram stain, C and S were sent, and management discussed with the nursing staff and the patient. The patient will be put on antibiotic after the culture comes back and pain management and will follow up in my office 1 week from today. The patient has been discussed and agreed to dressing change every day with packing. SARAH / CARMITA /[id number]
--- NOTE | 2017-09-04 13:18 | PCM.SN ---
- Free Text/Narrative Note: Cultures returned with MRSA, RESISTANT to Clindamycin patient was sent home with. Bactrim would be next option. Does have contraindications with home medications of Methotrexate. I attempted to contact her Rheumatology provider Michelle Cohen and Dr Naik in [place], they are both unavailable currently. I was able to contact Dr Wall, [employer] at [facility] in [place]. 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 It is reassuring she is not on max dosing of Methotrexate. I spoke with PCP, Dr Stephens who is in agreement with plan and ordered labwork on Friday. Bactrim DS 1 tab BID #20 tabs for 10 days called to [employer] today at [address] Abad will be notified, who is following her for L axilla abscess wound and care. I attempted to call Cherelle at 0948 am today and left message for her to call me back at my office number or cell phone. I attempted a second time at 1305 with no answer. I spoke with Bridgette Abad's nurse, they are expecting patient to come to their clinic today for dressing change. She will call my office when patient is there so I am able to speak with her directly regarding change in meds and labwork with Dr Stephens on Friday and Holding Methotrexate during this treatment.
== END 2017-09-02 16:00 | disposition home or self-care (01) ==
LOC: EEVIPCON 17:42 → MW.MS 17:42
PROVIDERS: ADMIT Internal Medicine; ATTEND Internal Medicine
DX: N61.1 Abscess of the breast and nipple (principal); M06.9 Rheumatoid arthritis, unspecified; L03.112 Cellulitis of left axilla; M19.90 Unspecified osteoarthritis, unspecified site; F32.9 Major depressive disorder, single episode, unspecified; K21.9 Gastro-esophageal reflux disease without esophagitis; Z91.040 Latex allergy status; Z91.030 Bee allergy status
CPT/HCPCS: 10060; 36415; 73201; 76881; 80048; 80053; 80202; 83605; 85025; 87040; 87070; 87077; 87186; 87205; A9270; J1170; J1650; J2270; J2543; J3370; J7030; J7050; Q9967; 96365; 96366; 96367; 96372; 96375; 96376; G0378; G0379

== ENCOUNTER 2020-01-02 19:07 | Emergency (ER) | payer MEDICARE ==
[2020-01-02] MEDS ORDERED: Aspirin 81 MG Tab.Chew PO ONE (19:18)
[2020-01-02] MEDS ORDERED: Sodium Chloride 0.9% 2.5 ML Syringe FLUSH PRN (19:18)
[2020-01-02] MEDS ORDERED: Sodium Chloride 0.9% 10 ML Syringe FLUSH PRN (19:18)
--- NOTE | 2020-01-02 19:24 | EDM.PDOC ---
ED HPI GENERAL MEDICAL PROBLEM - General Chief Complaint: General Stated Complaint: LEFT ARM NUMBNESS,BACKPAIN,SWEATS Time Seen by Provider: 01/02/20 19:13 Source of Information: Reports: Patient History Limitations: Reports: No Limitations - History of Present Illness INITIAL COMMENTS - FREE TEXT/NARRATIVE: History of present illness: [Patient is 54-year-old female with no significant cardiac history who presents with left-sided neck pain, left arm numbness, anxiety, intermittent shortness of breath. She states that a few days ago she noted some pain in the left part of her neck and she developed some numbness and tingling in the left arm associated with it. She denies any trauma injuries or falls. She states that today she had some mild shortness of breath, she felt like it may have been related to anxiety/panic attacks that she has had in the past, but she states she has not had 1 of these in a while. She denies any active chest pain. She has a history of rheumatoid arthritis. She denies fever or chills. She denies URI symptoms. She denies cough. She denies any chronic lung problems. She has never had any work-up done on her heart, no previous stress tests.] Review of systems: As per history of present illness and below otherwise all systems reviewed and negative. Past medical history: As per history of present illness and as reviewed below otherwise noncontributory. Surgical history: As per history of present illness and as reviewed below otherwise noncontributory. Social history: No reported history of drug or alcohol abuse. Family history: As per history of present illness and as reviewed below otherwise noncontributory. Physical exam: General: Awake, alert, no acute distress, A&O X3. HEENT: Atraumatic, normocephalic, pupils reactive, negative for conjunctival pallor or scleral icterus, mucous membranes moist, throat clear, neck supple, nontender, trachea midline. Neck: mild tenderness to palpation of left paraspinal region of neck, no midline C spine tenderness Lungs: Clear to auscultation, breath sounds equal bilaterally, chest nontender. Heart: RRR, normal S1S2, no JVD. Abdomen: Soft, nondistended, nontender. Negative for masses or hepatosplenomegaly. Negative for costovertebral tenderness. Pelvis: Stable nontender. Genitourinary: Deferred. Rectal: Deferred. Extremities: Atraumatic, no edema, Neurovascular unremarkable. Neuro: Motor and sensory grossly intact throughout. Exam nonfocal. Diagnostics: [] Therapeutics: [] Impression: [] Plan: [] Definitive disposition and diagnosis as appropriate pending reevaluation and review of above. Left Arm Pain Score (Numeric/FACES): 8 - Related Data Allergies Allergy/AdvReac Type Severity Reaction Status Date / Time latex Allergy swelling,it Verified 01/02/20 19:15 abdullahi bee sting Allergy Swelling Uncoded 01/02/20 19:15 Home Meds: Home Meds Cholecalciferol (Vitamin D3) [Vitamin D3] 1,000 unit PO BEDTIME 07/06/16 [History] Folic Acid 1 mg PO BEDTIME 07/06/16 [History] Zolpidem Tartrate [Ambien] 10 mg PO BEDTIME PRN 07/06/16 [History] Methotrexate 15 mg PO Q7D 06/18/17 [History] hydrOXYzine HCL [hydrOXYzine] 25 mg PO BEDTIME 06/18/17 [History] Acetaminophen/oxyCODONE [Percocet 325-10 MG] 1 - 2 tab PO Q4H PRN #80 tablet 06/19/17 [Rx] Cyanocobalamin (Vitamin B-12) [B-12] 250 mcg PO BEDTIME 08/29/17 [History] Venlafaxine HCl [Venlafaxine ER] 1 cap PO BEDTIME 08/29/17 [History] Acetaminophen/oxyCODONE [Percocet 325-10 MG] 1 - 2 tab PO Q4H PRN tablet 09/02/17 [Rx] clindamycin HCL [Cleocin] 450 mg PO Q6H #120 cap 09/02/17 [Rx] Past Medical History HEENT History: Reports: None Cardiovascular History: Reports: None Respiratory History: Reports: None Gastrointestinal History: Reports: GERD Genitourinary History: Reports: None OPERATIONS TECHNICIAN History: Reports: None Musculoskeletal History: Reports: Osteoarthritis, RA Neurological History: Reports: None Psychiatric History: Reports: Depression Endocrine/Metabolic History: Reports: None Hematologic History: Reports: Anesthesia Reaction Immunologic History: Reports: None Oncologic (Cancer) History: Reports: None Dermatologic History: Reports: None - Infectious Disease History Infectious Disease History: Reports: Chicken Pox, Influenza - Past Surgical History Head Surgeries/Procedures: Reports: None HEENT Surgical History: Reports: None Cardiovascular Surgical History: Reports: None Respiratory Surgical History: Reports: None GI Surgical History: Reports: None Female Surgical History: Reports: Hysterectomy Endocrine Surgical History: Reports: None Neurological Surgical History: Reports: None Musculoskeletal Surgical History: Reports: None Oncologic Surgical History: Reports: None Dermatological Surgical History: Reports: None Social & Family History - Family History Family Medical History: Noncontributory - Tobacco Use Smoking Status *Q: Current Some Day Smoker Years of Tobacco use: 1 Packs/Tins Daily: 0.5 - Caffeine Use Caffeine Use: Reports: None - Recreational Drug Use Recreational Drug Use: No - Living Situation & Occupation Living situation: Reports: Occupation: Employed ED ROS GENERAL - Review of Systems Review Of Systems: Comprehensive ROS is negative, except as noted in HPI. ED EXAM, GENERAL - Physical Exam Exam: See Below (See H&P) EKG INTERPRETATION EKG Date: 01/02/20 Time: 19:20 Rhythm: NSR Rate (Beats/Min): 98 [place]: Normal P-Wave: Present QRS: Normal ST-T: Normal QT: Normal Course - Vital Signs Text/Narrative:: Patient has a reassuring work-up here in the ED. Nonischemic EKG. Troponin negative. Symptoms appear to be consistent with cervical radiculopathy starting from the neck and involving the left arm. She feels better after getting some medications here in the ED including some steroids. She has a heart score of 1 for age. Vital signs are stable. I do believe she needs to be admitted for further work-up this time, encouraged her to follow-up with PCP in the outpatient setting for any future work-up. Informed her that she may need an MRI of the neck if symptoms not improving coming weeks to evaluate for herniated disks. She understands this plan. Is agreeable with it. Not having any active chest pain, not feeling short of breath at the time of discharge. Last Recorded V/S: Last Vital Signs Temp 36.2 C 01/02/20 21:00 Pulse 88 01/02/20 21:00 Resp 18 01/02/20 21:00 BP 128/78 01/02/20 21:00 Pulse Ox 98 01/02/20 21:00 - Orders/Labs/Meds Orders: Active Orders 24 hr Category Date Time Status Saline Lock Insert [OM.PC] Stat Oth 01/02/20 19:18 Ordered Labs: Laboratory Tests 01/02/20 01/02/20 01/02/20 Range/Units 19:35 19:35 19:35 WBC 7.07 (4.0-11.0) K/uL RBC 5.54 (4.30-5.90) M/uL Hgb 14.3 (12.0-16.0) g/dL Hct 44.0 (36.0-46.0) % MCV 79.4 L (80.0-98.0) fL MCH 25.8 L (27.0-32.0) pg MCHC 32.5 (31.0-37.0) g/dL RDW Std Deviation 45.5 (28.0-62.0) fl RDW Coeff of Rashaun 16 H (11.0-15.0) % Plt Count 252 (150-400) K/uL MPV 9.20 (7.40-12.00) fL Neut % (Auto) 75.0 (48.0-80.0) % Lymph % (Auto) 17.7 (16.0-40.0) % [place] % (Auto) 6.5 (0.0-15.0) % Eos % (Auto) 0.7 (0.0-7.0) % Baso % (Auto) 0.1 (0.0-1.5) % Neut # (Auto) 5.3 (1.4-5.7) K/uL Lymph # (Auto) 1.3 (0.6-2.4) K/uL [place] # (Auto) 0.5 (0.0-0.8) K/uL Eos # (Auto) 0.1 (0.0-0.7) K/uL Baso # (Auto) 0.0 (0.0-0.1) K/uL Nucleated RBC % 0.0 /100WBC Nucleated RBCs # 0 K/uL Sodium 135 L (136-145) mmol/L Potassium 4.1 (3.5-5.1) mmol/L Chloride 101 (98-107) mmol/L Carbon Dioxide 23.7 (21.0-32.0) mmol/L BUN 18 (7.0-18.0) mg/dL Creatinine 0.9 (0.6-1.0) mg/dL Est Cr Clr Drug Dosing 65.05 mL/min Estimated GFR (MDRD) > 60.0 ml/min Glucose 90 (74-106) mg/dL Calcium 8.5 (8.5-10.1) mg/dL Total Bilirubin 0.2 (0.2-1.0) mg/dL AST 16 (15-37) IU/L ALT 29 (14-63) IU/L Alkaline Phosphatase 153 H (46-116) U/L Troponin I < 0.050 (0.000-0.056) ng/mL Total Protein 7.3 (6.4-8.2) g/dL Albumin 3.6 (3.4-5.0) g/dL Globulin 3.7 (2.6-4.0) g/dL Albumin/Globulin Ratio 1.0 (0.9-1.6) HCG, Qual NEGATIVE (NEG) Meds: Medications Discontinued Medications Generic Name Dose Route Start Last Admin Trade Name Freq PRN Reason Stop Dose Admin Aspirin 324 mg 01/02/20 19:18 01/02/20 19:33 Aspirin PO 01/02/20 19:19 324 mg ONETIME ONE Administration Dexamethasone 10 mg 01/02/20 20:21 01/02/20 20:30 Dexamethasone IVPUSH 01/02/20 20:22 10 mg ONETIME ONE Administration Sodium Chloride 10 ml 01/02/20 19:18 01/02/20 19:34 Saline Flush FLUSH 10 ml ASDIRECTED PRN Administration Keep Vein Open Sodium Chloride 2.5 ml 01/02/20 19:18 01/02/20 19:33 Saline Flush FLUSH 2.5 ml ASDIRECTED PRN Administration Keep Vein Open Departure - Departure Time of Disposition: 20:30 Disposition: Home, Self-Care 01 Condition: Good Clinical Impression: Cervical radiculopathy - Discharge Information Instructions: Cervical Radiculopathy Referrals: Nava DOE [Primary Care Provider] - Forms: ED Department Discharge Additional Instructions: Follow-up with primary care doctor. Return to the ED with any new or worsening symptoms. Consider MRI if symptoms worsen or do not improve over the coming weeks The following information is given to patients seen in the emergency department who are being discharged to home. This information is to outline your options for follow-up care. We provide all patients seen in our emergency department with a follow-up referral. The need for follow-up, as well as the timing and circumstances, are variable depending upon the specifics of your emergency department visit. If you don't have a primary care physician on staff, we will provide you with a referral. We always advise you to contact your personal physician following an emergency department visit to inform them of the circumstance of the visit and for follow-up with them and/or the need for any referrals to a consulting specialist. The emergency department will also refer you to a specialist when appropriate. This referral assures that you have the opportunity for follow-up care with a specialist. All of these measure are taken in an effort to provide you with optimal care, which includes your follow-up. Under all circumstances we always encourage you to contact your private physician who remains a resource for coordinating your care. When calling for follow-up care, please make the office aware that this follow-up is from your recent emergency room visit. If for any reason you are refused follow-up, please contact the [facility] Emergency Department at and asked to speak to the emergency department charge nurse. Sepsis Event Note (ED) - Evaluation Sepsis Screening Result: No Definite Risk - Focused Exam Vital Signs: Vital Signs Temp Pulse Resp BP Pulse Ox 01/02/20 21:00 36.2 C 88 18 128/78 98 01/02/20 20:31 88 18 125/76 96 01/02/20 19:12 36.3 C 106 H 134/84 96 - My Orders Last 24 Hours: My Active Orders 01/02/20 19:18 Saline Lock Insert [OM.PC] Stat - Assessment/Plan Last 24 Hours: My Active Orders 01/02/20 19:18 Saline Lock Insert [OM.PC] Stat
--- NOTE | 2020-01-02 19:51 | CR ---
HISTORY: Shortness of breath. TECHNIQUE: One view chest. COMPARISON: No prior. FINDINGS: No acute lung infiltrate or pulmonary edema. No pneumothorax or pleural effusion. Cardiac size within normal limits. No pulmonary vascular congestion. IMPRESSION: No acute disease. Dictated by Keegan Chavez MD @ 01/02/2020 7:51:19 PM Dictated by: Keegan Chavez MD @ 01/02/2020 19:51:25 (Electronically Signed)
[2020-01-02 20:07] LABS: BLOOD UREA NITROGEN,BUN 18 mg/dL (7.0-18.0); CARBON DIOXIDE,CO2 23.7 mmol/L (21.0-32.0); CHLORIDE,CL 101 mmol/L (98-107); GLUCOSE RANDOM 90 mg/dL (74-106); POTASSIUM,K 4.1 mmol/L (3.5-5.1); SODIUM,NA 135 mmol/L (136-145)
[2020-01-02] MEDS ORDERED: Dexamethasone 10 MG/ML SDV IVPUSH ONE (20:21)
[2020-01-02 20:32] VITALS: PULSE 88
[2020-01-02 22:18] VITALS: BP 128/78
== END 2020-01-02 21:00 | disposition home or self-care (01) ==
LOC: MW.ED 19:07
DX: M54.12 Radiculopathy, cervical region (principal); F32.9 Major depressive disorder, single episode, unspecified; F17.210 Nicotine dependence, cigarettes, uncomplicated; Z91.040 Latex allergy status; Z91.030 Bee allergy status; Z79.899 Other long term (current) drug therapy
CPT/HCPCS: 36415; 71045; 80053; 84484; 84703; 85025; 93005; 96374; 99285; A9270; J1100; 99284

== ENCOUNTER 2020-06-21 22:32 | Observation (INO) | payer MEDICARE, OTHER ==
--- NOTE | 2020-06-22 00:15 | EDM.PDOC ---
ED HPI GENERAL MEDICAL PROBLEM - General Chief Complaint: Wound Recheck Stated Complaint: POSSIBLE INFECTION ON SURGERY AREA Time Seen by Provider: 06/21/20 23:44 Source of Information: Reports: Patient History Limitations: Reports: No Limitations - History of Present Illness INITIAL COMMENTS - FREE TEXT/NARRATIVE: Patient is a 55-year-old female who presents today for left knee swelling and pain. Patient had a recent knee replacement and when she went to the follow-up appointment the use of adhesive and caused the knee become red. Patient now relates that the knee is red and also swollen and has been seeing some pus draining from the staple site. Patient denies any systemic symptoms of fever chills she denies nausea vomiting diarrhea. Patient reports that the pain is more stiff and difficult to bend and ambulate. L knee Pain Score (Numeric/FACES): 6 - Related Data Allergies Allergy/AdvReac Type Severity Reaction Status Date / Time adhesive tape Allergy Other Verified 06/21/20 23:41 latex Allergy swelling,it Verified 01/02/20 19:15 abdullahi bee sting Allergy Swelling Uncoded 01/02/20 19:15 Home Meds: Home Meds Diclofenac Sodium 06/22/20 [History] Venlafaxine HCl 06/22/20 [History] hydrOXYzine HCL [hydrOXYzine] 06/22/20 [History] Past Medical History HEENT History: Reports: None Other HEENT History: TMJ Cardiovascular History: Reports: None Respiratory History: Reports: None Gastrointestinal History: Reports: GERD Genitourinary History: Reports: None 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: Musculoskeletal History: Reports: Osteoarthritis, RA Other Musculoskeletal History: L knee Neurological History: Reports: None Psychiatric History: Reports: Depression Endocrine/Metabolic History: Reports: None Hematologic History: Reports: Anesthesia Reaction Immunologic History: Reports: None Oncologic (Cancer) History: Reports: None Dermatologic History: Reports: None - Infectious Disease History Infectious Disease History: Reports: Chicken Pox, Influenza, MRSA Other Infectious Disease History: hepatitis - unsure which kind - Past Surgical History Head Surgeries/Procedures: Reports: None HEENT Surgical History: Reports: None Cardiovascular Surgical History: Reports: None Respiratory Surgical History: Reports: None GI Surgical History: Reports: None Female Surgical History: Reports: Hysterectomy Endocrine Surgical History: Reports: None Neurological Surgical History: Reports: None Musculoskeletal Surgical History: Reports: None Other Musculoskeletal Surgeries/Procedures:: left hip surgery Oncologic Surgical History: Reports: None Dermatological Surgical History: Reports: None Social & Family History - Family History Family Medical History: No Pertinent Family History - Caffeine Use Caffeine Use: Reports: None - Recreational Drug Use Recreational Drug Use: No - Living Situation & Occupation Living situation: Reports: Occupation: Employed ED ROS GENERAL - Review of Systems Review Of Systems: Comprehensive ROS is negative, except as noted in HPI. ED EXAM, GENERAL - Physical Exam Exam: See Below Exam Limited By: No Limitations General Appearance: Alert, WD/WN, No Apparent Distress Respiratory/Chest: No Respiratory Distress, Lungs Clear, Normal Breath Sounds Cardiovascular: Normal Peripheral Pulses, Regular Rate, Rhythm, No Edema Peripheral Pulses: 2+: Dorsalis Pedis (L), Dorsalis Pedis (R) GI/Abdominal: Normal Bowel Sounds, Soft, Non-Tender Extremities: Joint Swelling, Redness, Other (small pus from knee surgical site ) Neurological: Alert, Oriented, CN II-XII Intact Course - Vital Signs Last Recorded V/S: Last Vital Signs Temp 98.1 F 06/21/20 23:42 Pulse 92 06/22/20 03:29 Resp 18 06/22/20 03:29 BP 135/87 06/22/20 03:29 Pulse Ox 96 06/22/20 03:29 - Orders/Labs/Meds Orders: Active Orders 24 hr Category Date Time Status Patient Status [ADT] Routine ADT 06/22/20 03:52 Ordered CORONAVIRUS COVID-19 KRISTIAN [MOLEC] Stat Lab 06/22/20 03:48 Ordered COVID-19/FLU A+B [MOLEC] Stat Lab 06/22/20 03:51 Ordered CULTURE BLOOD [BC] Stat Lab 06/22/20 00:53 Received CULTURE BLOOD [BC] Stat Lab 06/22/20 01:00 Received Vancomycin 1.25 gm Med 06/22/20 03:05 Active Sodium Chloride 0.9% [Normal Saline (AdvBag)] 250 ml IV ONETIME Blood Culture x2 Reflex Set [OM.PC] Stat Oth 06/22/20 00:12 Ordered Medication Orders Vancomycin HCl 1.25 gm/ Sodium (Chloride) 250 mls @ 167 mls/hr IV ONETIME ONE Stop: 06/22/20 04:34 Last Admin: 06/22/20 03:18 Dose: 167 mls/hr Documented by: HAO Labs: Laboratory Tests 06/22/20 06/22/20 06/22/20 Range/Units 00:53 01:00 01:00 WBC (4.0-11.0) K/uL RBC (4.30-5.90) M/uL Hgb (12.0-16.0) g/dL Hct (36.0-46.0) % MCV (80.0-98.0) fL MCH (27.0-32.0) pg MCHC (31.0-37.0) g/dL RDW Std Deviation (28.0-62.0) fl RDW Coeff of Rashaun (11.0-15.0) % Plt Count (150-400) K/uL MPV (7.40-12.00) fL Neut % (Auto) (48.0-80.0) % Lymph % (Auto) (16.0-40.0) % [place] % (Auto) (0.0-15.0) % Eos % (Auto) (0.0-7.0) % Baso % (Auto) (0.0-1.5) % Neut # (Auto) (1.4-5.7) K/uL Lymph # (Auto) (0.6-2.4) K/uL Cherokee # (Auto) (0.0-0.8) K/uL Eos # (Auto) (0.0-0.7) K/uL Baso # (Auto) (0.0-0.1) K/uL Nucleated RBC % /100WBC Nucleated RBCs # K/uL ESR 38 H (0-29) mm/hr Lactate 1.0 (0.20-2.00) mmol/L Sodium 140 (136-145) mmol/L Potassium 4.0 (3.5-5.1) mmol/L Chloride 103 (98-107) mmol/L Carbon Dioxide 27.1 (21.0-32.0) mmol/L BUN 25 H (7.0-18.0) mg/dL Creatinine 1.3 H (0.6-1.0) mg/dL Est Cr Clr Drug Dosing 42.72 mL/min Estimated GFR (MDRD) 42.7 ml/min Glucose 105 (74-106) mg/dL Calcium 9.1 (8.5-10.1) mg/dL Total Bilirubin 0.2 (0.2-1.0) mg/dL AST 11 L (15-37) IU/L ALT 15 (14-63) IU/L Alkaline Phosphatase 157 H (46-116) U/L Creatine Kinase 30 (26-308) U/L C-Reactive Protein 2.00 H (0.00-0.90) mg/dL Total Protein 7.4 (6.4-8.2) g/dL Albumin 3.4 (3.4-5.0) g/dL Globulin 4.0 (2.6-4.0) g/dL Albumin/Globulin Ratio 0.9 (0.9-1.6) 06/22/20 Range/Units 01:35 WBC 8.55 (4.0-11.0) K/uL RBC 4.67 (4.30-5.90) M/uL Hgb 12.0 (12.0-16.0) g/dL Hct 38.2 (36.0-46.0) % MCV 81.8 (80.0-98.0) fL MCH 25.7 L (27.0-32.0) pg MCHC 31.4 (31.0-37.0) g/dL RDW Std Deviation 51.6 (28.0-62.0) fl RDW Coeff of Rashaun 17 H (11.0-15.0) % Plt Count 80 L (150-400) K/uL MPV 10.70 (7.40-12.00) fL Neut % (Auto) 68.8 (48.0-80.0) % Lymph % (Auto) 22.2 (16.0-40.0) % Cherokee % (Auto) 6.7 (0.0-15.0) % Eos % (Auto) 2.1 (0.0-7.0) % Baso % (Auto) 0.2 (0.0-1.5) % Neut # (Auto) 5.9 H (1.4-5.7) K/uL Lymph # (Auto) 1.9 (0.6-2.4) K/uL Cherokee # (Auto) 0.6 (0.0-0.8) K/uL Eos # (Auto) 0.2 (0.0-0.7) K/uL Baso # (Auto) 0.0 (0.0-0.1) K/uL Nucleated RBC % 0.0 /100WBC Nucleated RBCs # 0 K/uL ESR (0-29) mm/hr Lactate (0.20-2.00) mmol/L Sodium (136-145) mmol/L Potassium (3.5-5.1) mmol/L Chloride (98-107) mmol/L Carbon Dioxide (21.0-32.0) mmol/L BUN (7.0-18.0) mg/dL Creatinine (0.6-1.0) mg/dL Est Cr Clr Drug Dosing mL/min Estimated GFR (MDRD) ml/min Glucose (74-106) mg/dL Calcium (8.5-10.1) mg/dL Total Bilirubin (0.2-1.0) mg/dL AST (15-37) IU/L ALT (14-63) IU/L Alkaline Phosphatase (46-116) U/L Creatine Kinase (26-308) U/L C-Reactive Protein (0.00-0.90) mg/dL Total Protein (6.4-8.2) g/dL Albumin (3.4-5.0) g/dL Globulin (2.6-4.0) g/dL Albumin/Globulin Ratio (0.9-1.6) Meds: Medications Generic Name Dose Route Start Last Admin Trade Name Freq PRN Reason Stop Dose Admin Vancomycin HCl 1.25 gm/ Sodium 250 mls @ 167 mls/hr 06/22/20 03:05 06/22/20 03:18 Chloride IV 06/22/20 04:34 167 mls/hr ONETIME ONE Administration Discontinued Medications Generic Name Dose Route Start Last Admin Trade Name Freq PRN Reason Stop Dose Admin Sodium Chloride 1,000 mls @ 999 mls/hr 06/22/20 01:59 06/22/20 02:03 Normal Saline IV 06/22/20 02:59 999 mls/hr NOW STA Administration Iopamidol 75 ml 06/22/20 01:56 06/22/20 01:57 Isovue Multipack-370 (76%) IVPUSH 06/22/20 01:57 75 ml ONETIME STA Administration - Re-Assessments/Exams Free Text/Narrative Re-Assessment/Exam: 06/22/20 03:53 CT of the knee shows some possible cellulitis with also an abscess. We spoke to orthopedics our facility but there will be orthopedic on-call for the next week. We spoke to our orthopedic surgeon here Dr. Hernandez who agrees to consult the patient will admit the patient to the hospitalist. Departure - Departure Time of Disposition: 03:54 Disposition: Admitted As Inpatient 67 Condition: Good Clinical Impression: Abscess of knee, left - Discharge Information *PRESCRIPTION DRUG MONITORING PROGRAM REVIEWED*: Not Applicable *COPY OF PRESCRIPTION DRUG MONITORING REPORT IN PATIENT ANAHI: Not Applicable Referrals: PCP,None [Primary Care Provider] - Forms: ED Department Discharge Sepsis Event Note (ED) - Evaluation Sepsis Screening Result: No Definite Risk - Focused Exam Vital Signs: Vital Signs Temp Pulse Resp BP Pulse Ox 06/22/20 03:29 92 18 135/87 96 06/22/20 00:30 96 18 122/72 96 06/21/20 23:42 98.1 F 101 H 18 143/86 H 96 - My Orders Last 24 Hours: My Active Orders 06/22/20 00:12 Blood Culture x2 Reflex Set [OM.PC] Stat 06/22/20 00:53 CULTURE BLOOD [BC] Stat 06/22/20 01:00 CULTURE BLOOD [BC] Stat 06/22/20 03:05 Vancomycin 1.25 gm Sodium Chloride 0.9% [Normal Saline (AdvBag)] 250 ml IV ON ETIME 06/22/20 03:48 CORONAVIRUS COVID-19 KRISTIAN [MOLEC] Stat 06/22/20 03:51 COVID-19/FLU A+B [MOLEC] Stat 06/22/20 03:52 Patient Status [ADT] Routine - Assessment/Plan Last 24 Hours: My Active Orders 06/22/20 00:12 Blood Culture x2 Reflex Set [OM.PC] Stat 06/22/20 00:53 CULTURE BLOOD [BC] Stat 06/22/20 01:00 CULTURE BLOOD [BC] Stat 06/22/20 03:05 Vancomycin 1.25 gm Sodium Chloride 0.9% [Normal Saline (AdvBag)] 250 ml IV ONETIME 06/22/20 03:48 CORONAVIRUS COVID-19 KRISTIAN [MOLEC] Stat 06/22/20 03:51 COVID-19/FLU A+B [MOLEC] Stat 06/22/20 03:52 Patient Status [ADT] Routine Assessment:: Patient is a 55-year-old female who presents today for left knee pain and swelling status post knee replacement. Will obtain x-ray blood cultures labs patient possibly has a abscess around surgical site.
--- NOTE | 2020-06-22 00:57 | CR ---
INDICATION: Knee replacement 2 weeks ago. Now with pain and swelling. COMPARISON: None available FINDINGS: AP, sunrise, and lateral views of the left knee were obtained during weight-bearing. The components of a total knee prosthesis are in anatomic alignment with no sign of fracture, loosening, or dislocation. There is moderate diffuse soft tissue swelling of the knee with blurring of the fat planes diffusely, consistent with edema or cellulitis. There is no sign of a suprapatellar joint effusion. IMPRESSION: Moderate diffuse soft tissue swelling with loss of fat planes, cellulitis versus edema. Satisfactory appearance of components of a left total knee prosthesis. Dictated by Deepak Manuel MD @ Jun 22 2020 12:53AM Signed by Dr. Deepak Manuel @ Jun 22 2020 12:56AM
[2020-06-22 01:28] LABS: CARBON DIOXIDE,CO2 27.1 mmol/L (21.0-32.0)
[2020-06-22] MEDS ORDERED: Iopamidol 755 MG/ML 500 ML Multipack Bottle IVPUSH STA (01:56)
[2020-06-22] MEDS ORDERED: Sodium Chloride 0.9% 1,000 ML IV STA (01:59)
--- NOTE | 2020-06-22 03:26 | CT ---
Indication: Abscess status post surgery Technique: A CT scan of the left knee with intravenous contrast. 75 mL of Isovue 370 administered. Comparison: Plain films from the same date Findings: A left knee arthroplasty is seen with resulting beam hardening artifact, obscuring regional bony and soft tissue detail. No gross displaced fracture is seen. There is no dislocation. An ovoid/rectilinear area of near water attenuation with thin peripheral calcific density in the distal femoral metadiaphyseal medullary cavity could be postsurgical. There is a moderate suprapatellar effusion with synovial enhancement. There is a small collection in the anterior soft tissues at the level of the quadriceps tendon and patella, measuring up to 0.6 cm AP x 2.0 cm transverse x 8.1 cm cc, demonstrating thin peripheral enhancement. There is overlying soft tissue stranding and edema. There is an apparent Steven`s cyst, partially obscured by artifact. Impression: Status post total knee arthroplasty. No gross displaced fracture seen. A moderate suprapatellar effusion demonstrating synovial enhancement, which may be reactive postsurgical, however infection is not excluded. Correlate with joint aspiration, as clinically indicated. An anterior soft tissue peripherally enhancing fluid collection which could represent an abscess. Please note that all CT scans at this facility use dose modulation, iterative reconstruction, and/or weight-based dosing when appropriate to reduce radiation dose to as low as reasonably achievable. Dictated by Beny Quiroz MD @ Jun 22 2020 3:15AM Signed by Dr. Beny Quiroz @ Jun 22 2020 3:25AM
[2020-06-22] MEDS ORDERED: Morphine 4 MG/ML Syringe IVPUSH ONE (03:55)
[2020-06-22 04:34] LABS: CORONAVIRUS COVID-19 NAA NEGATIVE (NEGATIVE); INFLUENZA A NAA NEGATIVE (NEGATIVE); INFLUENZA B NAA NEGATIVE (NEGATIVE)
[2020-06-22] MEDS ORDERED: Ondansetron 4 MG/2 ML SDV IVPUSH PRN (04:55)
[2020-06-22] MEDS: Lactated Ringers 1,000 ML IV SCH ×3 (06:08→23:45)
[2020-06-22 06:17] LABS: HEMOGLOBIN A1C 5.5 %
--- NOTE | 2020-06-22 07:51 | PCM.HP.2 ---
H&P History of Present Illness - General Date of Service: 06/22/20 Admit Problem/Dx: Admission Diagnosis/Problem Admission Diagnosis/Problem left knee cellulitis Source of Information: Patient History Limitations: Reports: No Limitations - History of Present Illness Initial Comments - Free Text/Narative: This 55-year-old female with past medical history of RA, osteoarthritis and depression came to the ER for evaluation of left knee redness. She reports that she had a total joint replacement of her left knee a couple weeks ago with Dr. Johnny marrero in [place]. She said a couple days ago they remove the nga and dressing and after that she noticed redness and some slight purulent drainage from one of the staple sites. She reports that she had increasing knee pain and inability to fully extend her knee. She denies any systemic symptoms such as fevers chills chest pain or shortness of breath. She denies any abdominal pain dysuria constipation or diarrhea. She does have history of MRSA and had a left axilla abscess with subsequent I&D a couple years ago. She also has history of being on methotrexate but is not currently on this. She reports she is taking low-dose naltrexone currently. She denies any recreational drug use but does carry medical marijuana card. She uses oil sublingual to help with chronic pain. She reports intermittent tobacco use. But has not smoked in quite a few weeks denies any alcohol use. In the ER no leukocytosis noted at 8.55 hemoglobin 12 platelet count is 80 which is lower from previous. ESR elevated at 38 CRP 2.0 sodium is 140 potassium 4.0 BUN 25 creatinine 1.3, BUN/creatinine are elevated from baseline. AST is 11 ALT 15 alk phos is 157. The x-ray was obtained which shows moderate diffuse soft tissue swelling with loss of fat planes cellulitis versus edema. CT of the knee show status post total knee arthroplasty no gross displaced fracture. A moderate supra patellar effusion demonstrated synovial enhancement which may be reactive postsurgical however infection is not excluded. Dr. Hernandez orthopedic surgeon was consulted in the ER he will see patient request hospitalist service to admit. Patient was given neomycin in the ER and admitted observation for left knee cellulitis possible joint infection. L knee Pain Score (Numeric/FACES): 6 - Related Data Allergies/Adverse Reactions: Allergies Allergy/AdvReac Type Severity Reaction Status Date / Time adhesive tape Allergy Other Verified 06/21/20 23:41 latex Allergy swelling,it Verified 01/02/20 19:15 abdullahi bee sting Allergy Swelling Uncoded 01/02/20 19:15 Home Medications: Home Meds Diclofenac Sodium 75 mg PO BID 06/22/20 [History] Famotidine 20 mg PO DAILY 06/22/20 [History] Venlafaxine HCl [Venlafaxine ER] 150 mg PO DAILY 06/22/20 [History] hydrOXYzine HCL [Hydroxyzine HCl] 25 mg PO BEDTIME 06/22/20 [History] Past Medical History HEENT History: Reports: None Other HEENT History: TMJ Cardiovascular History: Reports: None Respiratory History: Reports: None Gastrointestinal History: Reports: GERD Genitourinary History: Reports: None [employer] History: Reports: Musculoskeletal History: Reports: Osteoarthritis, RA Other Musculoskeletal History: L knee Neurological History: Reports: None Psychiatric History: Reports: Depression Endocrine/Metabolic History: Reports: None Hematologic History: Reports: Anesthesia Reaction Immunologic History: Reports: None Oncologic (Cancer) History: Reports: None Dermatologic History: Reports: None - Infectious Disease History Infectious Disease History: Reports: Chicken Pox, Influenza, MRSA Other Infectious Disease History: hepatitis - unsure which kind - Past Surgical History Head Surgeries/Procedures: Reports: None HEENT Surgical History: Reports: None Cardiovascular Surgical History: Reports: None Respiratory Surgical History: Reports: None GI Surgical History: Reports: None Female Surgical History: Reports: Hysterectomy Endocrine Surgical History: Reports: None Neurological Surgical History: Reports: None Musculoskeletal Surgical History: Reports: None Other Musculoskeletal Surgeries/Procedures:: left hip surgery Oncologic Surgical History: Reports: None Dermatological Surgical History: Reports: None Social & Family History - Family History Family Medical History: No Pertinent Family History - Tobacco Use Tobacco Use Status *Q: Current Some Day Tobacco User Years of Tobacco use: 2 Packs/Tins Daily: 2 - Caffeine Use Caffeine Use: Reports: Soda - Recreational Drug Use Recreational Drug Use: Yes Recreational Drug Type: Reports: Other (see below) Other Recreational Drug Type: medical marijuana - Living Situation & Occupation Living situation: Reports: Occupation: Employed H&P Review of Systems - Review of Systems: Review Of Systems: See Below General: Denies: Fever, Chills, Malaise, Weakness HEENT: Reports: No Symptoms. Denies: Headaches, Sinus Congestion, Vertigo Pulmonary: Reports: No Symptoms. Denies: Shortness of Breath Cardiovascular: Reports: No Symptoms. Denies: Chest Pain Gastrointestinal: Reports: No Symptoms. Denies: Abdominal Pain Genitourinary: Reports: No Symptoms. Denies: Dysuria, Frequency, Burning Musculoskeletal: Reports: Joint Swelling (Left knee) Skin: Reports: Erythema, Wound Psychiatric: Reports: No Symptoms Neurological: Reports: No Symptoms Hematologic/Lymphatic: Reports: No Symptoms Immunologic: Reports: No Symptoms Exam - Exam Exam: See Below - Vital Signs Vital Signs: Last Vital Signs Temp 96.4 F L 06/22/20 07:26 Pulse 95 06/22/20 07:26 Resp 18 06/22/20 07:26 BP 127/59 L 06/22/20 07:26 Pulse Ox 95 06/22/20 07:26 Weight: 75.07 kg - Exam General: Alert, Oriented, Cooperative Neck: Supple, Trachea Midline Lungs: Clear to Auscultation, Normal Respiratory Effort Cardiovascular: Regular Rate, Regular Rhythm, Normal S1, Normal S2 GI/Abdominal Exam: Normal Bowel Sounds, Soft, Non-Tender Back Exam: Normal Inspection, Full Range of Motion Extremities: Normal Inspection, Normal Range of Motion, Joint Swelling (Left knee), Redness (Surrounding left knee incision), Other (Has physical deformities of joints due to RA osteoarthritis of hands and feet.) Skin: Incision (Left knee incision that is well approximated. Skin irritation from adhesive noted and very demarcated linear fashion around the knee. Staple site noted to medial side of patella noted to be erythematous more tender and slightly warm. No major fluctuance is noted but there is edema. No current purulent drainage noted.) Neuro Extensive - Mental Status: Alert, Oriented x3 Neuro Extensive - Motor, Sensory, Reflexes: CN II-XII Intact, Normal Gait, Normal Reflexes Psychiatric: Alert, Normal Affect, Normal Mood - Patient Data Lab Results Last 24 hrs: Laboratory Results - last 24 hr 06/22/20 06/22/20 06/22/20 Range/Units 00:53 01:00 01:00 WBC (4.0-11.0) K/uL RBC (4.30-5.90) M/uL Hgb (12.0-16.0) g/dL Hct (36.0-46.0) % MCV (80.0-98.0) fL MCH (27.0-32.0) pg MCHC (31.0-37.0) g/dL RDW Std Deviation (28.0-62.0) fl RDW Coeff of Rashaun (11.0-15.0) % Plt Count (150-400) K/uL MPV (7.40-12.00) fL Neut % (Auto) (48.0-80.0) % Lymph % (Auto) (16.0-40.0) % Sabine % (Auto) (0.0-15.0) % Eos % (Auto) (0.0-7.0) % Baso % (Auto) (0.0-1.5) % Neut # (Auto) (1.4-5.7) K/uL Lymph # (Auto) (0.6-2.4) K/uL Sabine # (Auto) (0.0-0.8) K/uL Eos # (Auto) (0.0-0.7) K/uL Baso # (Auto) (0.0-0.1) K/uL Nucleated RBC % /100WBC Nucleated RBCs # K/uL ESR 38 H (0-29) mm/hr Lactate 1.0 (0.20-2.00) mmol/L Sodium 140 (136-145) mmol/L Potassium 4.0 (3.5-5.1) mmol/L Chloride 103 (98-107) mmol/L Carbon Dioxide 27.1 (21.0-32.0) mmol/L BUN 25 H (7.0-18.0) mg/dL Creatinine 1.3 H (0.6-1.0) mg/dL Est Cr Clr Drug Dosing 42.72 mL/min Estimated GFR (MDRD) 42.7 ml/min Glucose 105 (74-106) mg/dL Hemoglobin A1c (4.5 - 6.2) % Calcium 9.1 (8.5-10.1) mg/dL Total Bilirubin 0.2 (0.2-1.0) mg/dL AST 11 L (15-37) IU/L ALT 15 (14-63) IU/L Alkaline Phosphatase 157 H (46-116) U/L Creatine Kinase 30 (26-308) U/L C-Reactive Protein 2.00 H (0.00-0.90) mg/dL Total Protein 7.4 (6.4-8.2) g/dL Albumin 3.4 (3.4-5.0) g/dL Globulin 4.0 (2.6-4.0) g/dL Albumin/Globulin Ratio 0.9 (0.9-1.6) Influenza Type A RNA (NEGATIVE) Influenza Type B RNA (NEGATIVE) SARS-CoV-2 RNA (KRISTIAN) (NEGATIVE) 06/22/20 06/22/20 06/22/20 Range/Units 01:35 01:35 03:50 WBC 8.55 (4.0-11.0) K/uL RBC 4.67 (4.30-5.90) M/uL Hgb 12.0 (12.0-16.0) g/dL Hct 38.2 (36.0-46.0) % MCV 81.8 (80.0-98.0) fL MCH 25.7 L (27.0-32.0) pg MCHC 31.4 (31.0-37.0) g/dL RDW Std Deviation 51.6 (28.0-62.0) fl RDW Coeff of Rashaun 17 H (11.0-15.0) % Plt Count 80 L (150-400) K/uL MPV 10.70 (7.40-12.00) fL Neut % (Auto) 68.8 (48.0-80.0) % Lymph % (Auto) 22.2 (16.0-40.0) % Sabine % (Auto) 6.7 (0.0-15.0) % Eos % (Auto) 2.1 (0.0-7.0) % Baso % (Auto) 0.2 (0.0-1.5) % Neut # (Auto) 5.9 H (1.4-5.7) K/uL Lymph # (Auto) 1.9 (0.6-2.4) K/uL Sabine # (Auto) 0.6 (0.0-0.8) K/uL Eos # (Auto) 0.2 (0.0-0.7) K/uL Baso # (Auto) 0.0 (0.0-0.1) K/uL Nucleated RBC % 0.0 /100WBC Nucleated RBCs # 0 K/uL ESR (0-29) mm/hr Lactate (0.20-2.00) mmol/L Sodium (136-145) mmol/L Potassium (3.5-5.1) mmol/L Chloride (98-107) mmol/L Carbon Dioxide (21.0-32.0) mmol/L BUN (7.0-18.0) mg/dL Creatinine (0.6-1.0) mg/dL Est Cr Clr Drug Dosing mL/min Estimated GFR (MDRD) ml/min Glucose (74-106) mg/dL Hemoglobin A1c 5.5 (4.5 - 6.2) % Calcium (8.5-10.1) mg/dL Total Bilirubin (0.2-1.0) mg/dL AST (15-37) IU/L ALT (14-63) IU/L Alkaline Phosphatase (46-116) U/L Creatine Kinase (26-308) U/L C-Reactive Protein (0.00-0.90) mg/dL Total Protein (6.4-8.2) g/dL Albumin (3.4-5.0) g/dL Globulin (2.6-4.0) g/dL Albumin/Globulin Ratio (0.9-1.6) Influenza Type A RNA NEGATIVE (NEGATIVE) Influenza Type B RNA NEGATIVE (NEGATIVE) SARS-CoV-2 RNA (KRISTIAN) NEGATIVE (NEGATIVE) Result Diagrams: 06/22/20 01:35 06/22/20 01:00 Sepsis Event Note - Evaluation Sepsis Screening Result: No Definite Risk - Focused Exam Vital Signs: Vital Signs Temp Pulse Resp BP Pulse Ox 06/22/20 07:26 96.4 F L 95 18 127/59 L 95 06/22/20 05:33 97.8 F 84 17 146/79 H 97 06/22/20 04:52 97.8 F 89 18 125/67 97 06/22/20 03:29 97.6 F 92 18 135/87 96 06/22/20 00:30 96 18 122/72 96 06/21/20 23:42 98.1 F 101 H 18 143/86 H 96 - Problem List (1) Cellulitis of left knee SNOMED Code(s): 21274835220755363 ICD Code: L03.116 - CELLULITIS OF LEFT LOWER LIMB Status: Acute Current Visit: Yes (2) History of MRSA infection SNOMED Code(s): 119608120, 788356346 ICD Code: Z86.14 - PERSONAL HISTORY OF METHICILLIN RESIS STAPH INFECTION Status: Acute Current Visit: Yes (3) Depression SNOMED Code(s): 44845530 ICD Code: F32.9 - MAJOR DEPRESSIVE DISORDER, SINGLE EPISODE, UNSPECIFIED St atus: Chronic Current Visit: No Qualifiers: Depression Type: unspecified Qualified Code(s): F32.9 - Major depressive disorder, single episode, unspecified (4) Osteoarthritis SNOMED Code(s): 338003271 ICD Code: M19.90 - UNSPECIFIED OSTEOARTHRITIS, UNSPECIFIED SITE Status: Chronic Current Visit: No Qualifiers: Osteoarthritis location: multiple joints (5) Rheumatoid arthritis SNOMED Code(s): 50562169 ICD Code: M06.9 - RHEUMATOID ARTHRITIS, UNSPECIFIED Status: Chronic Current Visit: No Qualifiers: Rheumatoid arthritis location: multiple sites Rheumatoid factor presence: unspecified presence Qualified Code(s): M06.9 - Rheumatoid arthritis, unspecified (6) MAMTA (acute kidney injury) SNOMED Code(s): 37534252, 26110134 ICD Code: N17.9 - ACUTE KIDNEY FAILURE, UNSPECIFIED Status: Acute Current Visit: Yes Problem List Initiated/Reviewed/Updated: Yes Orders Last 24hrs: Active Orders 24 hr Category Date Time Status Patient Status [ADT] Routine ADT 06/22/20 03:52 Active Antiembolic Devices [RC] PER UNIT ROUTINE Care 06/22/20 04:52 Active Oxygen Therapy [RC] ASDIRECTED Care 06/22/20 04:51 Active Vital Signs [RC] Q4H Care 06/22/20 04:50 Active NPO [Nothing Per Oral Diet] [DIET] Diet 06/22/20 Breakfast Active BASIC METABOLIC PANEL,BMP [CHEM] Routine Lab 06/22/20 05:11 Ordered CBC WITH AUTO DIFF [HEME] Routine Lab 06/22/20 05:11 Ordered CULTURE BLOOD [BC] Stat Lab 06/22/20 00:53 Received CULTURE BLOOD [BC] Stat Lab 06/22/20 01:00 Received TSH [CHEM] Routine Lab 06/22/20 05:11 Ordered VANCOMYCIN TROUGH [CHEM] Timed Lab 06/24/20 02:00 Ordered Lactated Ringers [Ringers, Lactated] 1,000 ml Med 06/22/20 05:00 Active IV ASDIRECTED Morphine Med 06/22/20 04:54 Active 2 mg IVPUSH Q4H PRN Ondansetron [Zofran] Med 06/22/20 04:55 Active 4 mg IVPUSH Q6H PRN Pharmacy to Dose - Vancomycin Med 06/22/20 05:00 Active 1 dose .XX ASDIRECTED Vancomycin [Vancocin] 1 gm Med 06/22/20 15:00 Active Sodium Chloride 0.9% [Normal Saline (AdvBag)] 250 ml IV Q12H Blood Culture x2 Reflex Set [OM.PC] Stat Oth 06/22/20 00:12 Ordered SCD [Sequential Compression Device] [OM.PC] Routine Oth 06/22/20 04:52 Ordered Medication Orders Lactated Ringer's (Ringers, Lactated) 1,000 mls @ 125 mls/hr IV ASDIRECTED MICHAEL Last Admin: 06/22/20 06:08 Dose: 125 mls/hr Documented by: LEONORA Vancomycin HCl 1 gm/ Sodium (Chloride) 250 mls @ 166 mls/hr IV Q12H MICHAEL Morphine Sulfate (Morphine) 2 mg IVPUSH Q4H PRN PRN Reason: Pain Ondansetron HCl (Zofran) 4 mg IVPUSH Q6H PRN PRN Reason: Nausea/Vomiting Vancomycin HCl (Pharmacy To Dose - Vancomycin) 1 dose .XX ASDIRECTED [facility] Assessment/Plan Comment:: This 55-year-old female admitted with left knee cellulitis, concern for left knee joint infection 1. Left knee cellulitis -Dr. Hernandez orthopedic surgeon consulted and saw patient this morning feels this is likely only cellulitis but will keep a close eye. -Dr. Hernandez recommended soap and water to wash the wound no other chemical at this time. -Continue vancomycin -Continue morphine for pain management -We will hold off on diclofenac due to MAMTA -I did encourage ambulation and physical therapy patient adamantly refused having physical therapy at this time. -Appreciate Dr. Hernandez's consultation and recommendations. 2. MAMTA -Could be secondary to NSAIDs and poor intake -Recheck labs in the morning -Avoid any further nephrotoxic medications -IV fluids today 3. Thrombocytopenia -We will continue to monitor -No signs of acute bleeding 4. RA/OA -Denies taking methotrexate recently. VTE prophylaxis: SCDs at that time due to thrombocytopenia CODE STATUS; full code Dispo: 2 to 3 days pending improvement - Mortality Measure Prognosis:: Good
[2020-06-22] MEDS ORDERED: Docusate Sodium 100 MG Cap PO PRN (08:14)
[2020-06-22] MEDS ORDERED: Sodium Chloride 0.9% 10 ML Syringe FLUSH PRN (08:14)
[2020-06-22] MEDS ORDERED: Sodium Chloride 0.9% 2.5 ML Syringe FLUSH PRN (08:14)
[2020-06-22] MEDS ORDERED: Acetaminophen 325 MG Tab PO PRN (08:14)
[2020-06-22] MEDS: Famotidine 20 MG Tab PO SCH (09:15)
[2020-06-22] MEDS: Venlafaxine 75 MG Cap.ER PO SCH (09:21)
[2020-06-22] MEDS: Morphine 2 MG/ML SYRINGE IVPUSH PRN ×3 (09:22→20:55)
[2020-06-22] MEDS: hydrOXYzine HCl 25 MG Tab PO SCH (21:01)
[2020-06-23] MEDS: Morphine 2 MG/ML SYRINGE IVPUSH PRN (03:22)
[2020-06-23 06:28] LABS: BLOOD UREA NITROGEN,BUN 12 mg/dL (7.0-18.0); CARBON DIOXIDE,CO2 24.4 mmol/L (21.0-32.0); CHLORIDE,CL 109 mmol/L (98-107); GLUCOSE RANDOM 93 mg/dL (74-106); POTASSIUM,K 4.4 mmol/L (3.5-5.1); SODIUM,NA 143 mmol/L (136-145)
--- NOTE | 2020-06-23 08:15 | PCM.PN ---
- General Info Date of Service: 06/23/20 Admission Dx/Problem (Free Text): Admission Diagnosis/Problem Admission Diagnosis/Problem left knee cellulitis Subjective Update: Feeling better today. No chest pain or shortness of breath. Reports knee is much improved. Very scant serous drainage. Redness much improved to left knee. Requesting vitamins reordered. No other concerns. Functional Status: Reports: Pain Controlled, Tolerating Diet, Ambulating, Urinating - Review of Systems General: Reports: No Symptoms. Denies: Fever, Weakness, Fatigue Pulmonary: Reports: No Symptoms. Denies: Shortness of Breath Cardiovascular: Reports: No Symptoms. Denies: Chest Pain Gastrointestinal: Reports: No Symptoms. Denies: Abdominal Pain, Nausea, Vomiting Genitourinary: Reports: No Symptoms. Denies: Dysuria, Frequency Musculoskeletal: Reports: No Symptoms Skin: Reports: No Symptoms Neurological: Reports: No Symptoms Psychiatric: Reports: No Symptoms - Patient Data Vitals - Most Recent: Last Vital Signs Temp 98 F 06/23/20 04:00 Pulse 88 06/23/20 04:00 Resp 16 06/23/20 04:00 BP 124/73 06/23/20 04:00 Pulse Ox 95 06/23/20 04:00 Weight - Most Recent: 75.07 kg I&O - Last 24 Hours: Intake & Output 06/22/20 06/23/20 06/23/20 22:59 06:59 14:59 Intake Total 600 3198 Output Total 0 0 Balance 600 3198 Lab Results Last 24 Hours: Laboratory Results - last 24 hr 06/22/20 06/23/20 06/23/20 Range/Units 01:35 05:38 05:38 WBC 8.55 4.33 (4.0-11.0) K/uL RBC 4.67 4.42 (4.30-5.90) M/uL Hgb 12.0 11.2 L (12.0-16.0) g/dL Hct 38.2 35.9 L (36.0-46.0) % MCV 81.8 81.2 (80.0-98.0) fL MCH 25.7 L 25.3 L (27.0-32.0) pg MCHC 31.4 31.2 (31.0-37.0) g/dL RDW Std Deviation 51.6 50.9 (28.0-62.0) fl RDW Coeff of Rashaun 17 H 17 H (11.0-15.0) % Plt Count 305 263 (150-400) K/uL MPV 10.70 9.90 (7.40-12.00) fL Neut % (Auto) 68.8 48.8 (48.0-80.0) % Lymph % (Auto) 22.2 42.0 H (16.0-40.0) % Armstrong % (Auto) 6.7 5.5 (0.0-15.0) % Eos % (Auto) 2.1 3.5 (0.0-7.0) % Baso % (Auto) 0.2 0.2 (0.0-1.5) % Neut # (Auto) 5.9 H 2.1 (1.4-5.7) K/uL Lymph # (Auto) 1.9 1.8 (0.6-2.4) K/uL Armstrong # (Auto) 0.6 0.2 (0.0-0.8) K/uL Eos # (Auto) 0.2 0.2 (0.0-0.7) K/uL Baso # (Auto) 0.0 0.0 (0.0-0.1) K/uL Nucleated RBC % 0.0 0.0 /100WBC Nucleated RBCs # 0 0 K/uL Sodium 143 (136-145) mmol/L Potassium 4.4 (3.5-5.1) mmol/L Chloride 109 H (98-107) mmol/L Carbon Dioxide 24.4 (21.0-32.0) mmol/L BUN 12 (7.0-18.0) mg/dL Creatinine 0.8 (0.6-1.0) mg/dL Est Cr Clr Drug Dosing 69.42 mL/min Estimated GFR (MDRD) > 60.0 ml/min Glucose 93 (74-106) mg/dL Calcium 8.4 L (8.5-10.1) mg/dL TSH 3rd Generation 2.74 (0.36-3.74) uIU/mL Arley Results Last 24 Hours: Microbiology 06/22/20 01:00 Aerobic Blood Culture - Preliminary Blood - Venous - Lab Draw NO GROWTH AFTER 1 DAY Anaerobic Blood Culture - Preliminary NO GROWTH AFTER 1 DAY 06/22/20 00:53 Aerobic Blood Culture - Preliminary Blood - Venous NO GROWTH AFTER 1 DAY Anaerobic Blood Culture - Preliminary NO GROWTH AFTER 1 DAY Med Orders - Current: Current Medications Acetaminophen (Tylenol) 650 mg PO Q4H PRN PRN Reason: Pain (Mild 1-3)/fever Docusate Sodium (Colace) 100 mg PO BID PRN PRN Reason: Constipation Famotidine (Pepcid) 20 mg PO DAILY [facility] Last Admin: 06/22/20 09:15 Dose: 20 mg Documented by: Hydroxyzine HCl (Atarax) 25 mg PO BEDTIME [facility] Last Admin: 06/22/20 21:01 Dose: 25 mg Documented by: Lactated Ringer's (Ringers, Lactated) 1,000 mls @ 125 mls/hr IV ASDIRECTED [facility] Last Admin: 06/22/20 23:45 Dose: 125 mls/hr Documented by: Vancomycin HCl 1 gm/ Sodium (Chloride) 250 mls @ 166 mls/hr IV Q12H [facility] Last Admin: 06/23/20 03:15 Dose: 166 mls/hr Documented by: Morphine Sulfate (Morphine) 2 mg IVPUSH Q4H PRN PRN Reason: Pain Last Admin: 06/23/20 03:22 Dose: 2 mg Documented by: Ondansetron HCl (Zofran) 4 mg IVPUSH Q6H PRN PRN Reason: Nausea/Vomiting Sodium Chloride (Saline Flush) 10 ml FLUSH ASDIRECTED PRN PRN Reason: Keep Vein Open Sodium Chloride (Saline Flush) 2.5 ml FLUSH ASDIRECTED PRN PRN Reason: Keep Vein Open Vancomycin HCl (Pharmacy To Dose - Vancomycin) 1 dose .XX ASDIRECTED [facility] Venlafaxine HCl (Effexor Xr) 150 mg PO DAILY [facility] Last Admin: 06/22/20 09:21 Dose: 150 mg Documented by: Discontinued Medications Sodium Chloride (Normal Saline) 1,000 mls @ 999 mls/hr IV NOW STA Stop: 06/22/20 02:59 Last Admin: 06/22/20 02:03 Dose: 999 mls/hr Documented by: Vancomycin HCl 1.25 gm/ Sodium (Chloride) 250 mls @ 167 mls/hr IV ONETIME ONE Stop: 06/22/20 04:34 Last Admin: 06/22/20 03:18 Dose: 167 mls/hr Documented by: Vancomycin HCl 1 gm/ Sodium (Chloride) 250 mls @ 166 mls/hr IV Q12H MICHAEL Iopamidol (Isovue Multipack-370 (76%)) 75 ml IVPUSH ONETIME STA Stop: 06/22/20 01:57 Last Admin: 06/22/20 01:57 Dose: 75 ml Documented by: Morphine Sulfate (Morphine) 4 mg IVPUSH ONETIME ONE Stop: 06/22/20 03:56 Last Admin: 06/22/20 04:05 Dose: 4 mg Documented by: - Exam General: Alert, Oriented, Cooperative, No Acute Distress Lungs: Clear to Auscultation, Normal Respiratory Effort Cardiovascular: Regular Rate, Regular Rhythm GI/Abdominal Exam: Normal Bowel Sounds, Soft, Non-Tender Back Exam: Normal Inspection, Full Range of Motion Extremities: Normal Inspection, Normal Range of Motion, Non-Tender, No Pedal Edema Wound/Incisions: Healing Well, Erythema Improving (Erythema is more focal to staple site, slight tenderness no significant warmth. Patient able to move knee freely.) Neurological: No New Focal Deficit Psy/Mental Status: Alert, Normal Affect, Normal Mood Sepsis Event Note - Evaluation Sepsis Screening Result: No Definite Risk - Focused Exam Vital Signs: Vital Signs Temp Pulse Resp BP Pulse Ox 06/23/20 04:00 98 F 88 16 124/73 95 06/23/20 00:00 97.6 F 89 15 125/61 97 06/22/20 20:54 97.5 F 88 16 122/66 98 - Problem List & Annotations (1) Cellulitis of left knee SNOMED Code(s): 50431805975028654 Code(s): L03.116 - CELLULITIS OF LEFT LOWER LIMB Status: Acute Current Visit: Yes (2) History of MRSA infection SNOMED Code(s): 869796555, 489308453 Code(s): Z86.14 - PERSONAL HISTORY OF METHICILLIN RESIS STAPH INFECTION Status: Acute Current Visit: Yes (3) Depression SNOMED Code(s): 59484128 Code(s): F32.9 - MAJOR DEPRESSIVE DISORDER, SINGLE EPISODE, UNSPECIFIED Status: Chronic Current Visit: No Qualifiers: Depression Type: unspecified Qualified Code(s): F32.9 - Major depressive disorder, single episode, unspecified (4) Osteoarthritis SNOMED Code(s): 692523089 Code(s): M19.90 - UNSPECIFIED OSTEOARTHRITIS, UNSPECIFIED SITE Status: Chronic Current Visit: No Qualifiers: Osteoarthritis location: multiple joints (5) Rheumatoid arthritis SNOMED Code(s): 69319347 Code(s): M06.9 - RHEUMATOID ARTHRITIS, UNSPECIFIED Status: Chronic Current Visit: No Qualifiers: Rheumatoid arthritis location: multiple sites Rheumatoid factor presence: unspecified presence Qualified Code(s): M06.9 - Rheumatoid arthritis, unspecified (6) MAMTA (acute kidney injury) SNOMED Code(s): 03747711, 88031363 Code(s): N17.9 - ACUTE KIDNEY FAILURE, UNSPECIFIED Status: Acute Current Visit: Yes - Problem List Review Problem List Initiated/Reviewed/Updated: Yes - My Orders Last 24 Hours: My Active Orders 06/22/20 08:14 Intake and Output [RC] Q12H Up With Assistance [RC] ASDIRECTED VTE/DVT Education [RC] PER UNIT ROUTINE Acetaminophen [TylenoL] 650 mg PO Q4H PRN Docusate Sodium [Colace] 100 mg PO BID PRN Sodium Chloride 0.9% [Saline Flush] 10 ml FLUSH ASDIRECTED PRN Sodium Chloride 0.9% [Saline Flush] 2.5 ml FLUSH ASDIRECTED PRN Saline Lock Insert [OM.PC] Routine Resuscitation Status Routine 06/22/20 09:00 Famotidine [Pepcid] 20 mg PO DAILY Venlafaxine [Effexor XR] 150 mg PO DAILY 06/22/20 12:43 Wound Care [RC] DAILY 06/22/20 21:00 hydrOXYzine HCL [Atarax] 25 mg PO BEDTIME 06/24/20 05:11 BASIC METABOLIC PANEL,BMP [CHEM] AM CBC WITH AUTO DIFF [HEME] AM 06/25/20 05:11 BASIC METABOLIC PANEL,BMP [CHEM] AM CBC WITH AUTO DIFF [HEME] AM - Plan Plan:: This 55-year-old female admitted with left knee cellulitis, concern for left knee joint infection 1. Left knee cellulitis -Dr. Hernandez orthopedic surgeon consulted and saw patient this morning feels this is likely only cellulitis but will keep a close eye. -Dr. Hernandez recommended soap and water to wash the wound no other chemical at this time. -Continue vancomycin -Continue morphine for pain management -We will hold off on diclofenac due to MAMTA -I did encourage ambulation and physical therapy patient adamantly refused having physical therapy at this time. -Appreciate Dr. Hernandez's consultation and recommendations. -Likely home tomorrow on Bactrim 2. MAMTA -Could be secondary to NSAIDs and poor intake -Recheck labs in the morning -Avoid any further nephrotoxic medications -Resolved we will stop fluids today 3. Thrombocytopenia -We will continue to monitor -No signs of acute bleeding 4. RA/OA -Denies taking methotrexate recently. VTE prophylaxis: SCDs at that time due to thrombocytopenia CODE STATUS; full code Dispo: 2 to 3 days pending improvement As appointment scheduled on Friday with Dr. Luevano in [place]
[2020-06-23] MEDS: Famotidine 20 MG Tab PO SCH (09:17)
[2020-06-23] MEDS: Venlafaxine 75 MG Cap.ER PO SCH (09:18)
--- NOTE | 2020-06-23 09:20 | PCM.CONS ---
H&P History of Present Illness - General Date of Service: 06/22/20 Admit Problem/Dx: Admission Diagnosis/Problem Admission Diagnosis/Problem left knee cellulitis Source of Information: Patient, Provider, RN History Limitations: Reports: No Limitations - History of Present Illness Onset of Symptoms: Reports: Gradual Duration of Symptoms: Reports: Day(s): Location: Reports: Lower Extremity, Left Quality: Reports: Ache, Throbbing Severity: Moderate Improves with: Reports: Cold Therapy, Immobilization Worsens with: Reports: Movement Associated Symptoms: Reports: No Other Symptoms L knee Pain Score (Numeric/FACES): 6 - Related Data Allergies/Adverse Reactions: Allergies Allergy/AdvReac Type Severity Reaction Status Date / Time adhesive tape Allergy Other Verified 06/21/20 23:41 latex Allergy swelling,it Verified 01/02/20 19:15 abdullahi bee sting Allergy Swelling Uncoded 01/02/20 19:15 Home Medications: Home Meds Diclofenac Sodium 75 mg PO BID 06/22/20 [History] Famotidine 20 mg PO DAILY 06/22/20 [History] Venlafaxine HCl [Venlafaxine ER] 150 mg PO DAILY 06/22/20 [History] hydrOXYzine HCL [Hydroxyzine HCl] 25 mg PO BEDTIME 06/22/20 [History] Past Medical History HEENT History: Reports: None Other HEENT History: TMJ Cardiovascular History: Reports: None Respiratory History: Reports: None Gastrointestinal History: Reports: GERD Genitourinary History: Reports: None PHARMACY SPECIALIST History: Reports: Musculoskeletal History: Reports: Osteoarthritis, RA Other Musculoskeletal History: L knee Neurological History: Reports: None Psychiatric History: Reports: Depression Endocrine/Metabolic History: Reports: None Hematologic History: Reports: Anesthesia Reaction Immunologic History: Reports: None Oncologic (Cancer) History: Reports: None Dermatologic History: Reports: None - Infectious Disease History Infectious Disease History: Reports: Chicken Pox, Influenza, MRSA Other Infectious Disease History: hepatitis - unsure which kind - Past Surgical History Head Surgeries/Procedures: Reports: None HEENT Surgical History: Reports: None Cardiovascular Surgical History: Reports: None Respiratory Surgical History: Reports: None GI Surgical History: Reports: None Female Surgical History: Reports: Hysterectomy Endocrine Surgical History: Reports: None Neurological Surgical History: Reports: None Musculoskeletal Surgical History: Reports: None Other Musculoskeletal Surgeries/Procedures:: left hip surgery Oncologic Surgical History: Reports: None Dermatological Surgical History: Reports: None Social & Family History - Family History Family Medical History: No Pertinent Family History - Tobacco Use Tobacco Use Status *Q: Current Some Day Tobacco User Years of Tobacco use: 2 Packs/Tins Daily: 2 - Caffeine Use Caffeine Use: Reports: Soda - Recreational Drug Use Recreational Drug Use: Yes Recreational Drug Type: Reports: Other (see below) Other Recreational Drug Type: medical marijuana - Living Situation & Occupation Living situation: Reports: Occupation: Employed H&P Review of Systems - Review of Systems: Review Of Systems: See Below General: Reports: No Symptoms HEENT: Reports: No Symptoms Pulmonary: Reports: No Symptoms Cardiovascular: Reports: No Symptoms Gastrointestinal: Reports: No Symptoms Genitourinary: Reports: No Symptoms Musculoskeletal: Reports: Joint Pain, Joint Swelling Skin: Reports: Erythema, Wound Psychiatric: Reports: No Symptoms Neurological: Reports: No Symptoms Hematologic/Lymphatic: Reports: No Symptoms Immunologic: Reports: No Symptoms Exam - Exam Exam: See Below - Vital Signs Vital Signs: Last Vital Signs Temp 36.6 C 06/23/20 04:00 Pulse 88 06/23/20 04:00 Resp 16 06/23/20 04:00 BP 124/73 06/23/20 04:00 Pulse Ox 95 06/23/20 04:00 Weight: 75.07 kg - Exam General: Alert, Oriented, Cooperative, Moderate Distress HEENT: Conjunctiva Clear, Hearing Intact, Mucosa Moist & [place], Pupils Equal, Pupils Reactive Neck: Supple, Trachea Midline Lungs: Normal Respiratory Effort GI/Abdominal Exam: No Distention Extremities: Limited Range of Motion, Increased Warmth, Redness Skin: Warm, Dry, Intact Neuro Extensive - Mental Status: Alert, Oriented x3, Normal Mood/Affect, Normal Cognition, Memory Intact Psychiatric: Alert, Normal Affect, Normal Mood - Patient Data Lab Results Last 24 hrs: Laboratory Results - last 24 hr 06/23/20 06/23/20 Range/Units 05:38 05:38 WBC 4.33 (4.0-11.0) K/uL RBC 4.42 (4.30-5.90) M/uL Hgb 11.2 L (12.0-16.0) g/dL Hct 35.9 L (36.0-46.0) % MCV 81.2 (80.0-98.0) fL MCH 25.3 L (27.0-32.0) pg MCHC 31.2 (31.0-37.0) g/dL RDW Std Deviation 50.9 (28.0-62.0) fl RDW Coeff of Rashaun 17 H (11.0-15.0) % Plt Count 263 (150-400) K/uL MPV 9.90 (7.40-12.00) fL Neut % (Auto) 48.8 (48.0-80.0) % Lymph % (Auto) 42.0 H (16.0-40.0) % [place] % (Auto) 5.5 (0.0-15.0) % Eos % (Auto) 3.5 (0.0-7.0) % Baso % (Auto) 0.2 (0.0-1.5) % Neut # (Auto) 2.1 (1.4-5.7) K/uL Lymph # (Auto) 1.8 (0.6-2.4) K/uL [place] # (Auto) 0.2 (0.0-0.8) K/uL Eos # (Auto) 0.2 (0.0-0.7) K/uL Baso # (Auto) 0.0 (0.0-0.1) K/uL Nucleated RBC % 0.0 /100WBC Nucleated RBCs # 0 K/uL Sodium 143 (136-145) mmol/L Potassium 4.4 (3.5-5.1) mmol/L Chloride 109 H (98-107) mmol/L Carbon Dioxide 24.4 (21.0-32.0) mmol/L BUN 12 (7.0-18.0) mg/dL Creatinine 0.8 (0.6-1.0) mg/dL Est Cr Clr Drug Dosing 69.42 mL/min Estimated GFR (MDRD) > 60.0 ml/min Glucose 93 (74-106) mg/dL Calcium 8.4 L (8.5-10.1) mg/dL TSH 3rd Generation 2.74 (0.36-3.74) uIU/mL Result Diagrams: 06/23/20 05:38 06/23/20 05:38 [place]ley Results Last 24 hrs: Microbiology 06/22/20 01:00 Aerobic Blood Culture - Preliminary Blood - Venous - Lab Draw NO GROWTH AFTER 1 DAY Anaerobic Blood Culture - Preliminary NO GROWTH AFTER 1 DAY 06/22/20 00:53 Aerobic Blood Culture - Preliminary Blood - Venous NO GROWTH AFTER 1 DAY Anaerobic Blood Culture - Preliminary NO GROWTH AFTER 1 DAY Sepsis Event Note - Evaluation Sepsis Screening Result: No Definite Risk - Focused Exam Vital Signs: Vital Signs Temp Pulse Resp BP Pulse Ox 06/23/20 04:00 36.6 C 88 16 124/73 95 06/23/20 00:00 36.4 C 89 15 125/61 97 Consult PN Assessment/Plan POD#: 0 Procedures: Procedures ASSAY OF LACTIC ACID (08/29/17) ASSAY OF TROPONIN QUANT (01/02/20) ASSAY OF VANCOMYCIN (08/29/17) BLOOD CULTURE FOR BACTERIA (08/29/17) BLOOD TYPING SEROLOGIC ABO (06/18/17) BLOOD TYPING SEROLOGIC RH(D) (06/18/17) CHORIONIC GONADOTROPIN ASSAY (01/02/20) COMPLETE CBC W/AUTO DIFF WBC (01/02/20) COMPREHEN METABOLIC PANEL (01/02/20) CT UPPER EXTREMITY W/DYE (08/29/17) CULTURE AEROBIC IDENTIFY (08/29/17) CULTURE OTHR SPECIMN AEROBIC (08/29/17) DRAINAGE OF SKIN ABSCESS (08/29/17) ELECTROCARDIOGRAM TRACING (01/02/20) EMERGENCY DEPT VISIT (01/02/20) EMERGENCY DEPT VISIT (08/23/17) EMERGENCY DEPT VISIT (06/18/17) EMERGENCY DEPT VISIT (01/29/17) FLUOROSCOPE EXAM EXTENSIVE (06/18/17) HYDRATE IV INFUSION ADD-ON (01/29/17) HYDRATION IV INFUSION INIT (06/18/17) IMMUNIZATION ADMIN (07/06/16) METABOLIC PANEL TOTAL CA (08/29/17) MICROBE SUSCEPTIBLE ARLEY (08/29/17) PROTHROMBIN TIME (06/18/17) PT EVAL LOW COMPLEX 20 MIN (06/18/17) RBC ANTIBODY SCREEN (06/18/17) ROUTINE VENIPUNCTURE (01/02/20) SMEAR GRAM STAIN (08/29/17) TDAP VACCINE 7 YRS/> IM (07/06/16) THER/PROPH/DIAG INJ IV PUSH (01/02/20) THER/PROPH/DIAG INJ SC/IM (08/29/17) THER/PROPH/DIAG IV INF ADDON (08/29/17) THER/PROPH/DIAG IV INF INIT (08/29/17) THERAPEUTIC EXERCISES (06/18/17) TX/PRO/DX INJ NEW DRUG ADDON (08/29/17) TX/PRO/DX INJ SAME DRUG CLINICAL INFORMATICS SPEC (08/29/17) TX/PROPH/DG ADDL SEQ IV INF (08/29/17) URINALYSIS AUTO W/SCOPE (06/18/17) US COMPL JOINT R-T W/IMG (08/29/17) X-RAY EXAM CHEST 1 VIEW (01/02/20) X-RAY EXAM HIP UNI 1 VIEW (06/18/17) X-RAY EXAM HIP UNI 2-3 VIEWS (07/17/18) (1) Cellulitis of left knee SNOMED Code(s): 01292392784785883 Code(s): L03.116 - CELLULITIS OF LEFT LOWER LIMB Current Visit: Yes Problem List Initiated/Reviewed/Updated: Yes Plan: Hospitalist has the patient on vancomycin. We will monitor the patient and await results of the blood cultures. We can use soap and water of the wound. Ice as needed.
[2020-06-23] MEDS: hydrOXYzine HCl 25 MG Tab PO SCH (20:25)
[2020-06-23] MEDS: oxyCODONE 5 MG Tab PO PRN (22:57)
[2020-06-24 02:33] LABS: BLOOD UREA NITROGEN,BUN 17 mg/dL (7.0-18.0); CARBON DIOXIDE,CO2 27.6 mmol/L (21.0-32.0); CHLORIDE,CL 106 mmol/L (98-107); GLUCOSE RANDOM 98 mg/dL (74-106); POTASSIUM,K 4.2 mmol/L (3.5-5.1); SODIUM,NA 143 mmol/L (136-145)
[2020-06-24] MEDS: oxyCODONE 5 MG Tab PO PRN (03:02)
[2020-06-24 09:11] VITALS: BP 136/77; PULSE 83
[2020-06-24] MEDS: Venlafaxine 75 MG Cap.ER PO SCH (09:15)
[2020-06-24] MEDS: Famotidine 20 MG Tab PO SCH (09:15)
[2020-06-24] MEDS ORDERED: Ascorbic Acid 500 MG Tab PO SCH (09:15)
[2020-06-24] MEDS ORDERED: ZINC SULFATE 50 MG PO SCH (09:15)
[2020-06-24] MEDS ORDERED: Cyanocobalamin (Vitamin B12) 500 MCG Tab PO SCH (09:15)
[2020-06-24] MEDS ORDERED: Cholecalciferol (Vitamin D3) 25 MCG Tab PO SCH (09:15)
--- NOTE | 2020-06-24 10:04 | PCM.CONSN ---
- General Info Date of Service: 06/24/20 Admission Dx/Problem (Free Text): Admission Diagnosis/Problem Admission Diagnosis/Problem left knee cellulitis Functional Status: Reports: Pain Controlled - Review of Systems General: Reports: No Symptoms HEENT: Reports: No Symptoms Pulmonary: Reports: No Symptoms Cardiovascular: Reports: No Symptoms Gastrointestinal: Reports: No Symptoms Genitourinary: Reports: No Symptoms Musculoskeletal: Reports: Leg Pain, Joint Pain, Joint Swelling Skin: Reports: Other Neurological: Reports: No Symptoms Psychiatric: Reports: No Symptoms - Patient Data Vitals - Most Recent: Last Vital Signs Temp 36.0 C L 06/24/20 09:10 Pulse 83 06/24/20 09:10 Resp 16 06/24/20 09:10 BP 136/77 06/24/20 09:10 Pulse Ox 95 06/24/20 09:10 Weight - Most Recent: 75.07 kg I&O - Last 24 Hours: Intake & Output 06/23/20 06/24/20 06/24/20 22:59 06:59 14:59 Intake Total 750 750 Balance 750 750 Lab Results Last 24 Hours: Laboratory Results - last 24 hr 06/24/20 06/24/20 06/24/20 Range/Units 02:05 02:05 02:05 WBC 4.39 (4.0-11.0) K/uL RBC 4.26 L (4.30-5.90) M/uL Hgb 10.9 L (12.0-16.0) g/dL Hct 34.5 L (36.0-46.0) % MCV 81.0 (80.0-98.0) fL MCH 25.6 L (27.0-32.0) pg MCHC 31.6 (31.0-37.0) g/dL RDW Std Deviation 49.7 (28.0-62.0) fl RDW Coeff of Rashaun 17 H (11.0-15.0) % Plt Count 234 (150-400) K/uL MPV 9.60 (7.40-12.00) fL Neut % (Auto) 43.4 L (48.0-80.0) % Lymph % (Auto) 45.6 H (16.0-40.0) % [place] % (Auto) 5.9 (0.0-15.0) % Eos % (Auto) 4.6 (0.0-7.0) % Baso % (Auto) 0.5 (0.0-1.5) % Neut # (Auto) 1.9 (1.4-5.7) K/uL Lymph # (Auto) 2.0 (0.6-2.4) K/uL [place] # (Auto) 0.3 (0.0-0.8) K/uL Eos # (Auto) 0.2 (0.0-0.7) K/uL Baso # (Auto) 0.0 (0.0-0.1) K/uL Nucleated RBC % 0.0 /100WBC Nucleated RBCs # 0 K/uL Sodium 143 (136-145) mmol/L Potassium 4.2 (3.5-5.1) mmol/L Chloride 106 (98-107) mmol/L Carbon Dioxide 27.6 (21.0-32.0) mmol/L BUN 17 (7.0-18.0) mg/dL Creatinine 0.9 (0.6-1.0) mg/dL Est Cr Clr Drug Dosing 61.71 mL/min Estimated GFR (MDRD) > 60.0 ml/min Glucose 98 (74-106) mg/dL Calcium 8.7 (8.5-10.1) mg/dL Vancomycin Trough 17.4 H (5.0-10.0) ug/mL [place] Results Last 24 Hours: Microbiology 06/22/20 01:00 Aerobic Blood Culture - Preliminary Blood - Venous - Lab Draw NO GROWTH AFTER 2 DAYS Anaerobic Blood Culture - Preliminary NO GROWTH AFTER 2 DAYS 06/22/20 00:53 Aerobic Blood Culture - Preliminary Blood - Venous NO GROWTH AFTER 2 DAYS Anaerobic Blood Culture - Preliminary NO GROWTH AFTER 2 DAYS Med Orders - Current: Current Medications Acetaminophen (Tylenol) 650 mg PO Q4H PRN PRN Reason: Pain (Mild 1-3)/fever Ascorbic Acid (Vitamin C) 1,000 mg PO DAILY ON LICENSE OF [facility] Last Admin: 06/24/20 09:17 Dose: Not Given Documented by: Cholecalciferol (Vitamin D3) 100 mcg PO DAILY ON LICENSE OF [facility] Last Admin: 06/24/20 09:16 Dose: Not Given Documented by: Cyanocobalamin (Vitamin B12) 1,000 mcg PO DAILY ON LICENSE OF [facility] Last Admin: 06/24/20 09:16 Dose: Not Given Documented by: Docusate Sodium (Colace) 100 mg PO BID PRN PRN Reason: Constipation Famotidine (Pepcid) 20 mg PO DAILY ON LICENSE OF [facility] Last Admin: 06/24/20 09:15 Dose: 20 mg Documented by: Hydroxyzine HCl (Atarax) 25 mg PO BEDTIME ON LICENSE OF [facility] Last Admin: 06/23/20 20:25 Dose: 25 mg Documented by: Vancomycin HCl 1 gm/ Sodium (Chloride) 250 mls @ 166 mls/hr IV Q12H ON LICENSE OF [facility] Last Admin: 06/24/20 02:50 Dose: 166 mls/hr Documented by: Ondansetron HCl (Zofran) 4 mg IVPUSH Q6H PRN PRN Reason: Nausea/Vomiting Oxycodone HCl (Oxycodone) 5 mg PO Q4H PRN PRN Reason: Pain Last Admin: 06/24/20 03:02 Dose: 5 mg Documented by: Zinc Sulfate 50mg (Tab) 1 each PO DAILY ON LICENSE OF [facility] Last Admin: 06/24/20 09:16 Dose: Not Given Documented by: Sodium Chloride (Saline Flush) 10 ml FLUSH ASDIRECTED PRN PRN Reason: Keep Vein Open Sodium Chloride (Saline Flush) 2.5 ml FLUSH ASDIRECTED PRN PRN Reason: Keep Vein Open Last Admin: 06/24/20 09:18 Dose: 2.5 ml Documented by: Trimethoprim/Sulfamethoxazole (Septra Ds) 1 tab PO ONETIME ONE Stop: 06/24/20 09:55 Vancomycin HCl (Pharmacy To Dose - Vancomycin) 1 dose .XX ASDIRECTED ON LICENSE OF [facility] Venlafaxine HCl (Effexor Xr) 150 mg PO DAILY ON LICENSE OF [facility] Last Admin: 06/24/20 09:15 Dose: 150 mg Documented by: Discontinued Medications Sodium Chloride (Normal Saline) 1,000 mls @ 999 mls/hr IV NOW STA Stop: 06/22/20 02:59 Last Admin: 06/22/20 02:03 Dose: 999 mls/hr Documented by: Vancomycin HCl 1.25 gm/ Sodium (Chloride) 250 mls @ 167 mls/hr IV ONETIME ONE Stop: 06/22/20 04:34 Last Admin: 06/22/20 03:18 Dose: 167 mls/hr Documented by: Lactated Ringer's (Ringers, Lactated) 1,000 mls @ 125 mls/hr IV ASDIRECTED MICHAEL Last Admin: 06/22/20 23:45 Dose: 125 mls/hr Documented by: Vancomycin HCl 1 gm/ Sodium (Chloride) 250 mls @ 166 mls/hr IV Q12H ON LICENSE OF [facility] Iopamidol (Isovue Multipack-370 (76%)) 75 ml IVPUSH ONETIME STA Stop: 06/22/20 01:57 Last Admin: 06/22/20 01:57 Dose: 75 ml Documented by: Morphine Sulfate (Morphine) 4 mg IVPUSH ONETIME ONE Stop: 06/22/20 03:56 Last Admin: 06/22/20 04:05 Dose: 4 mg Documented by: Morphine Sulfate (Morphine) 2 mg IVPUSH Q4H PRN PRN Reason: Pain Last Admin: 06/23/20 03:22 Dose: 2 mg Documented by: - Exam General: Alert, Oriented, Cooperative, Mild Distress HEENT: Pupils Equal, Pupils Reactive, Mucous Membr. Moist/[place] Neck: Supple, Trachea Midline Lungs: Normal Respiratory Effort GI/Abdominal Exam: No Distention Skin: Ecchymosis (Wound significantly improved. Small amount of drainage. Significantly decreased induration in area of proximal medial incision) Wound/Incisions: Drainage Neurological: No New Focal Deficit Psy/Mental Status: Alert, Normal Affect, Normal Mood Sepsis Event Note - Evaluation Sepsis Screening Result: No Definite Risk - Focused Exam Vital Signs: Vital Signs Temp Pulse Resp BP Pulse Ox 06/24/20 09:10 36.0 C L 83 16 136/77 95 06/24/20 04:00 36.2 C 93 16 133/84 96 06/23/20 23:03 36.6 C 81 18 130/68 94 L Consult PN Assessment/Plan POD#: 0 Procedures: Procedures ASSAY OF LACTIC ACID (08/29/17) ASSAY OF TROPONIN QUANT (01/02/20) ASSAY OF VANCOMYCIN (08/29/17) BLOOD CULTURE FOR BACTERIA (08/29/17) BLOOD TYPING SEROLOGIC ABO (06/18/17) BLOOD TYPING SEROLOGIC RH(D) (06/18/17) CHORIONIC GONADOTROPIN ASSAY (01/02/20) COMPLETE CBC W/AUTO DIFF WBC (01/02/20) COMPREHEN METABOLIC PANEL (01/02/20) CT UPPER EXTREMITY W/DYE (08/29/17) CULTURE AEROBIC IDENTIFY (08/29/17) CULTURE OTHR SPECIMN AEROBIC (08/29/17) DRAINAGE OF SKIN ABSCESS (08/29/17) ELECTROCARDIOGRAM TRACING (01/02/20) EMERGENCY DEPT VISIT (01/02/20) EMERGENCY DEPT VISIT (08/23/17) EMERGENCY DEPT VISIT (06/18/17) EMERGENCY DEPT VISIT (01/29/17) FLUOROSCOPE EXAM EXTENSIVE (06/18/17) HYDRATE IV INFUSION ADD-ON (01/29/17) HYDRATION IV INFUSION INIT (06/18/17) IMMUNIZATION ADMIN (07/06/16) METABOLIC PANEL TOTAL CA (08/29/17) MICROBE SUSCEPTIBLE ARLEY (08/29/17) PROTHROMBIN TIME (06/18/17) PT EVAL LOW COMPLEX 20 MIN (06/18/17) RBC ANTIBODY SCREEN (06/18/17) ROUTINE VENIPUNCTURE (01/02/20) SMEAR GRAM STAIN (08/29/17) TDAP VACCINE 7 YRS/> IM (07/06/16) THER/PROPH/DIAG INJ IV PUSH (01/02/20) THER/PROPH/DIAG INJ SC/IM (08/29/17) THER/PROPH/DIAG IV INF ADDON (08/29/17) THER/PROPH/DIAG IV INF INIT (08/29/17) THERAPEUTIC EXERCISES (06/18/17) TX/PRO/DX INJ NEW DRUG ADDON (08/29/17) TX/PRO/DX INJ SAME DRUG COLLAR WORKER (08/29/17) TX/PROPH/DG ADDL SEQ IV INF (08/29/17) URINALYSIS AUTO W/SCOPE (06/18/17) US COMPL JOINT R-T W/IMG (08/29/17) X-RAY EXAM CHEST 1 VIEW (01/02/20) X-RAY EXAM HIP UNI 1 VIEW (06/18/17) X-RAY EXAM HIP UNI 2-3 VIEWS (07/17/18) (1) Cellulitis of left knee SNOMED Code(s): 51416236961239289 Code(s): L03.116 - CELLULITIS OF LEFT LOWER LIMB Current Visit: Yes Problem List Initiated/Reviewed/Updated: Yes Plan: 1) Elevate as much as possible 2) Leave open to air when possible 3) Keep pet dander away from wound 4) Wear clean jared wrap if exposed to pet dander 5) Continue ASA 81mg while on diclofenac 6) OK to DC diclofenac if pain tolerated and take ASA 325 daily for DVT prophylaxis 7) f/u with Dr. Luevano 8) Up at least every hour to bathroom/eat to exercise leg 9) work on ROM LLE
--- NOTE | 2020-06-24 10:11 | PCM.DCSUM1 ---
Discharge Summary - Hospital Course Free Text/Narrative:: This 55-year-old female with past medical history of RA, osteoarthritis and depression came to the ER for evaluation of left knee redness. She reports that she had a total joint replacement of her left knee a couple weeks ago with Dr. Johnny marrero in [place]. She said a couple days ago they remove the nga and dressing and after that she noticed redness and some slight purulent drainage from one of the staple sites. She reports that she had increasing knee pain and inability to fully extend her knee. She denies any systemic symptoms such as fevers chills chest pain or shortness of breath. She denies any abdominal pain dysuria constipation or diarrhea. She does have history of MRSA and had a left axilla abscess with subsequent I&D a couple years ago. She also has history of being on methotrexate but is not currently on this. She reports she is taking low-dose naltrexone currently. She denies any recreational drug use but does carry medical marijuana card. She uses oil sublingual to help with chronic pain. She reports intermittent tobacco use. But has not smoked in quite a few weeks denies any alcohol use. In the ER no leukocytosis noted at 8.55 hemoglobin 12 platelet count is 80 which is lower from previous. ESR elevated at 38 CRP 2.0 sodium is 140 potassium 4.0 BUN 25 creatinine 1.3, BUN/creatinine are elevated from baseline. AST is 11 ALT 15 alk phos is 157. The x-ray was obtained which shows moderate diffuse soft tissue swelling with loss of fat planes cellulitis versus edema. CT of the knee show status post total knee arthroplasty no gross displaced fracture. A moderate supra patellar effusion demonstrated synovial enhancement which may be reactive postsurgical however infection is not excluded. Dr. Hernandez orthopedic surgeon was consulted in the ER he will see patient request hospitalist service to admit. Patient was given neomycin in the ER and admitted observation for left knee cellulitis possible joint infection. Patient was started on Vancomycin, NSAIDs were held due to MAMTA, morphine was started for pain control. FOr wound care, soap and water wash was recommended by ortho. Patients swelling and redness improved considerably next day, Ortho evaluated the patient and recommenced no drainage but cont IV antibiotics. Blood cultures were obtained and were negative, her pain improved, her MAMTA resolved as well with IV fluids, she was eventually started on oral antibiotics and discharged home with close follow up with ortho upon dc. Wound care and leg elevation was recommended. Diagnosis: Stroke: No - Discharge Data Discharge Date: 06/24/20 Discharge Disposition: Home, Self-Care 01 Condition: Stable - Referral to Home Health Primary Care Physician: PCP None - Discharge Plan *PRESCRIPTION DRUG MONITORING PROGRAM REVIEWED*: Not Applicable *COPY OF PRESCRIPTION DRUG MONITORING REPORT IN PATIENT ANAHI: Not Applicable Prescriptions/Med Rec: Sulfamethoxazole/Trimethoprim [Bactrim Ds Tablet] 1 each PO BID 14 Days #28 tablet Docusate Sodium [Colace] 100 mg PO BID PRN #30 cap PRN Reason: Constipation oxyCODONE 5 mg PO Q8H PRN #15 tablet PRN Reason: Pain Acetaminophen [Tylenol] 650 mg PO Q4H PRN #30 tablet PRN Reason: Pain (Mild 1-3)/fever Home Medications: Home Meds Diclofenac Sodium 75 mg PO BID 06/22/20 [History] Famotidine 20 mg PO DAILY 06/22/20 [History] Venlafaxine HCl [Venlafaxine ER] 150 mg PO DAILY 06/22/20 [History] hydrOXYzine HCL [Hydroxyzine HCl] 25 mg PO BEDTIME 06/22/20 [History] Ascorbic Acid [Vitamin C] 1 tab PO DAILY 06/23/20 [History] Cholecalciferol (Vitamin D3) [Vitamin D3] 1 tab PO DAILY 06/23/20 [History] Cyanocobalamin (Vitamin B12) [Vitamin B12] 1 tab PO DAILY 06/23/20 [History] Zinc 1 tab PO DAILY 06/23/20 [History] Acetaminophen [Tylenol] 650 mg PO Q4H PRN #30 tablet 06/24/20 [Rx] Aspirin 81 mg PO DAILY 06/24/20 [History] Docusate Sodium [Colace] 100 mg PO BID PRN #30 cap 06/24/20 [Rx] Sulfamethoxazole/Trimethoprim [Bactrim Ds Tablet] 1 each PO BID 14 Days #28 tablet 06/24/20 [Rx] oxyCODONE 5 mg PO Q8H PRN #15 tablet 06/24/20 [Rx] Patient Handouts: Skin Abscess, Oxycodone tablets or capsules, Cellulitis, Adult, [id number], Docusate capsules, Sulfamethoxazole; Trimethoprim, SMX-TMP tablets Referrals: Ministerio Luevano MD [Physician] - 06/27/20 3:30 pm Zena Spencer MD [Ordering Only Provider] - 06/30/20 11:30 am - Discharge Summary/Plan Comment DC Time >30 min.: No - Patient Data Vitals - Most Recent: Last Vital Signs Temp 36.0 C L 06/24/20 09:10 Pulse 83 06/24/20 09:10 Resp 16 06/24/20 09:10 BP 136/77 06/24/20 09:10 Pulse Ox 95 06/24/20 09:10 Weight - Most Recent: 75.07 kg I&O - Last 24 hours: Intake & Output 06/23/20 06/24/20 06/24/20 22:59 06:59 14:59 Intake Total 750 750 Balance 750 750 Lab Results - Last 24 hrs: Laboratory Results - last 24 hr 06/24/20 06/24/20 06/24/20 Range/Units 02:05 02:05 02:05 WBC 4.39 (4.0-11.0) K/uL RBC 4.26 L (4.30-5.90) M/uL Hgb 10.9 L (12.0-16.0) g/dL Hct 34.5 L (36.0-46.0) % MCV 81.0 (80.0-98.0) fL MCH 25.6 L (27.0-32.0) pg MCHC 31.6 (31.0-37.0) g/dL RDW Std Deviation 49.7 (28.0-62.0) fl RDW Coeff of Rashaun 17 H (11.0-15.0) % Plt Count 234 (150-400) K/uL MPV 9.60 (7.40-12.00) fL Neut % (Auto) 43.4 L (48.0-80.0) % Lymph % (Auto) 45.6 H (16.0-40.0) % [place] % (Auto) 5.9 (0.0-15.0) % Eos % (Auto) 4.6 (0.0-7.0) % Baso % (Auto) 0.5 (0.0-1.5) % Neut # (Auto) 1.9 (1.4-5.7) K/uL Lymph # (Auto) 2.0 (0.6-2.4) K/uL [place] # (Auto) 0.3 (0.0-0.8) K/uL Eos # (Auto) 0.2 (0.0-0.7) K/uL Baso # (Auto) 0.0 (0.0-0.1) K/uL Nucleated RBC % 0.0 /100WBC Nucleated RBCs # 0 K/uL Sodium 143 (136-145) mmol/L Potassium 4.2 (3.5-5.1) mmol/L Chloride 106 (98-107) mmol/L Carbon Dioxide 27.6 (21.0-32.0) mmol/L BUN 17 (7.0-18.0) mg/dL Creatinine 0.9 (0.6-1.0) mg/dL Est Cr Clr Drug Dosing 61.71 mL/min Estimated GFR (MDRD) > 60.0 ml/min Glucose 98 (74-106) mg/dL Calcium 8.7 (8.5-10.1) mg/dL Vancomycin Trough 17.4 H (5.0-10.0) ug/mL [facility] Results - Last 24 hrs: Microbiology 06/22/20 01:00 Aerobic Blood Culture - Preliminary Blood - Venous - Lab Draw NO GROWTH AFTER 2 DAYS Anaerobic Blood Culture - Preliminary NO GROWTH AFTER 2 DAYS 06/22/20 00:53 Aerobic Blood Culture - Preliminary Blood - Venous NO GROWTH AFTER 2 DAYS Anaerobic Blood Culture - Preliminary NO GROWTH AFTER 2 DAYS Med Orders - Current: Current Medications Acetaminophen (Tylenol) 650 mg PO Q4H PRN PRN Reason: Pain (Mild 1-3)/fever Ascorbic Acid (Vitamin C) 1,000 mg PO DAILY [facility] Last Admin: 06/24/20 09:17 Dose: Not Given Documented by: Cholecalciferol (Vitamin D3) 100 mcg PO DAILY [facility] Last Admin: 06/24/20 09:16 Dose: Not Given Documented by: Cyanocobalamin (Vitamin B12) 1,000 mcg PO DAILY [facility] Last Admin: 06/24/20 09:16 Dose: Not Given Documented by: Docusate Sodium (Colace) 100 mg PO BID PRN PRN Reason: Constipation Famotidine (Pepcid) 20 mg PO DAILY [facility] Last Admin: 06/24/20 09:15 Dose: 20 mg Documented by: Hydroxyzine HCl (Atarax) 25 mg PO BEDTIME [facility] Last Admin: 06/23/20 20:25 Dose: 25 mg Documented by: Vancomycin HCl 1 gm/ Sodium (Chloride) 250 mls @ 166 mls/hr IV Q12H [facility] Last Admin: 06/24/20 02:50 Dose: 166 mls/hr Documented by: Ondansetron HCl (Zofran) 4 mg IVPUSH Q6H PRN PRN Reason: Nausea/Vomiting Oxycodone HCl (Oxycodone) 5 mg PO Q4H PRN PRN Reason: Pain Last Admin: 06/24/20 03:02 Dose: 5 mg Documented by: Zinc Sulfate 50mg (Tab) 1 each PO DAILY [facility] Last Admin: 06/24/20 09:16 Dose: Not Given Documented by: Sodium Chloride (Saline Flush) 10 ml FLUSH ASDIRECTED PRN PRN Reason: Keep Vein Open Sodium Chloride (Saline Flush) 2.5 ml FLUSH ASDIRECTED PRN PRN Reason: Keep Vein Open Last Admin: 06/24/20 09:18 Dose: 2.5 ml Documented by: Trimethoprim/Sulfamethoxazole (Septra Ds) 1 tab PO ONETIME ONE Stop: 06/24/20 10:16 Vancomycin HCl (Pharmacy To Dose - Vancomycin) 1 dose .XX ASDIRECTED [facility] Venlafaxine HCl (Effexor Xr) 150 mg PO DAILY [facility] Last Admin: 06/24/20 09:15 Dose: 150 mg Documented by: Discontinued Medications Sodium Chloride (Normal Saline) 1,000 mls @ 999 mls/hr IV NOW STA Stop: 06/22/20 02:59 Last Admin: 06/22/20 02:03 Dose: 999 mls/hr Documented by: Vancomycin HCl 1.25 gm/ Sodium (Chloride) 250 mls @ 167 mls/hr IV ONETIME ONE Stop: 06/22/20 04:34 Last Admin: 06/22/20 03:18 Dose: 167 mls/hr Documented by: Lactated Ringer's (Ringers, Lactated) 1,000 mls @ 125 mls/hr IV ASDIRECTED [facility] Last Admin: 06/22/20 23:45 Dose: 125 mls/hr Documented by: Vancomycin HCl 1 gm/ Sodium (Chloride) 250 mls @ 166 mls/hr IV Q12H [facility] Iopamidol (Isovue Multipack-370 (76%)) 75 ml IVPUSH ONETIME STA Stop: 06/22/20 01:57 Last Admin: 06/22/20 01:57 Dose: 75 ml Documented by: Morphine Sulfate (Morphine) 4 mg IVPUSH ONETIME ONE Stop: 06/22/20 03:56 Last Admin: 06/22/20 04:05 Dose: 4 mg Documented by: Morphine Sulfate (Morphine) 2 mg IVPUSH Q4H PRN PRN Reason: Pain Last Admin: 06/23/20 03:22 Dose: 2 mg Documented by:
[2020-06-24] MEDS ORDERED: Sulfamethoxazole/Trimethoprim 800-160 MG Tab PO ONE (10:15)
== END 2020-06-24 12:10 | disposition home or self-care (01) ==
LOC: MW.ED 22:32 → MW.MS 06-22 03:52
PROVIDERS: ADMIT Student in an Organized Health Care Education/Training Program; ATTEND Student in an Organized Health Care Education/Training Program
DX: T84.093A Other mechanical complication of internal left knee prosthesis, initial encounter (principal); L03.116 Cellulitis of left lower limb; M06.9 Rheumatoid arthritis, unspecified; F17.210 Nicotine dependence, cigarettes, uncomplicated; N17.9 Acute kidney failure, unspecified; D69.6 Thrombocytopenia, unspecified; Z20.822 Contact with and (suspected) exposure to COVID-19; Z91.040 Latex allergy status; Z91.030 Bee allergy status; Z91.048 Other nonmedicinal substance allergy status; Z79.899 Other long term (current) drug therapy; Z98.890 Other specified postprocedural states; Z79.82 Long term (current) use of aspirin
CPT/HCPCS: 0240U; 36415; 73562; 73701; 80048; 80053; 80202; 82550; 83036; 83605; 84443; 85025; 85652; 86140; 87040; 96361; 96365; 96366; 96375; 96376; 99285; A9270; G0378; J2270; J3370; J7030; J7050; J7120; Q9967; 99213; 99214; 99217; 99219; 99225; 99284

== ENCOUNTER 2021-09-07 22:56 | Emergency (ER) | payer MEDICARE, OTHER ==
[2021-09-08] MEDS ORDERED: Acetaminophen/oxyCODONE 325-10 MG Tab PO STA (00:46)
[2021-09-08] MEDS ORDERED: Clindamycin Palmitate Solution 75 MG/5 ML 100 ML Bottle PO STA (00:47)
[2021-09-08] MEDS ORDERED: Clindamycin HCl 150 MG Cap PO STA (00:58)
[2021-09-08 01:07] VITALS: BP 148/112; PULSE 99
== END 2021-09-08 01:23 | disposition home or self-care (01) ==
LOC: MW.ED 22:56
DX: K04.7 Periapical abscess without sinus (principal); M19.90 Unspecified osteoarthritis, unspecified site; Z90.710 Acquired absence of both cervix and uterus; Z79.899 Other long term (current) drug therapy; Z79.82 Long term (current) use of aspirin; Z91.040 Latex allergy status; Z91.030 Bee allergy status
CPT/HCPCS: 99282; A9270

== ENCOUNTER 2021-10-09 16:16 | Emergency (ER) | payer MEDICARE, OTHER ==
[2021-10-09] MEDS ORDERED: Sodium Chloride 0.9% 1,000 ML IV ONE ×2 (16:21→16:23)
[2021-10-09] MEDS ORDERED: HYDROmorphone 1 MG/ML Syringe IVPUSH ONE ×3 (16:22→18:46)
[2021-10-09] MEDS ORDERED: Acetaminophen 500 MG Tab PO ONE (16:22)
[2021-10-09] MEDS ORDERED: Ketorolac 30 MG/ML SDV IVPUSH ONE (16:22)
[2021-10-09] MEDS ORDERED: methylPREDNISolone Sodium Succinate 125 MG/2 ML SDV IVPUSH ONE (16:23)
[2021-10-09] MEDS ORDERED: Ondansetron 4 MG/2 ML SDV IVPUSH ONE (16:23)
[2021-10-09 18:27] LABS: CORONAVIRUS COVID-19 NAA NEGATIVE (NEGATIVE); INFLUENZA A NAA NEGATIVE (NEGATIVE); INFLUENZA B NAA NEGATIVE (NEGATIVE)
[2021-10-09 18:42] VITALS: BP 136/74; PULSE 103
[2021-10-09 18:59] LABS: BLOOD UREA NITROGEN,BUN 13 mg/dL (7.0-18.0); CARBON DIOXIDE,CO2 22.5 mmol/L (21.0-32.0); CHLORIDE,CL 106 mmol/L (98-107); GLUCOSE RANDOM 117 mg/dL (74-106); POTASSIUM,K 4.2 mmol/L (3.5-5.1); SODIUM,NA 139 mmol/L (136-145)
== END 2021-10-09 20:10 | disposition home or self-care (01) ==
LOC: MW.ED 16:16
DX: M06.9 Rheumatoid arthritis, unspecified (principal); D72.829 Elevated white blood cell count, unspecified; Z90.710 Acquired absence of both cervix and uterus; Z79.899 Other long term (current) drug therapy; Z79.82 Long term (current) use of aspirin; Z91.048 Other nonmedicinal substance allergy status; Z91.040 Latex allergy status; Z91.030 Bee allergy status; Z20.822 Contact with and (suspected) exposure to COVID-19
CPT/HCPCS: 0240U; 36415; 71045; 80053; 81001; 83605; 83735; 84484; 85025; 86140; 87040; 93005; 96361; 96374; 96375; 96376; 99284; A9270; J1170; J1885; J2405; J2930; J7030

== ENCOUNTER 2022-03-18 14:51 | Emergency (ER) | payer MEDICARE, OTHER ==
[2022-03-18 15:14] VITALS: BP 138/88; PULSE 96
[2022-03-18] MEDS ORDERED: Morphine 4 MG/ML Syringe IVPUSH ONE ×4 (15:40→21:17)
[2022-03-18] MEDS ORDERED: Ondansetron 4 MG/2 ML SDV IVPUSH ONE (15:40)
[2022-03-18] MEDS: Sodium Chloride 0.9% 2.5 ML Syringe FLUSH PRN ×2 (16:00→17:04)
[2022-03-18] MEDS: Sodium Chloride 0.9% 10 ML Syringe FLUSH PRN ×2 (16:00→17:04)
[2022-03-18 16:50] LABS: BLOOD UREA NITROGEN,BUN 26 mg/dL (7.0-18.0); CARBON DIOXIDE,CO2 23.9 mmol/L (21.0-32.0); CHLORIDE,CL 101 mmol/L (98-107); GLUCOSE RANDOM 104 mg/dL (74-106); LIPASE 62 U/L (73-393); POTASSIUM,K 4.1 mmol/L (3.5-5.1); SODIUM,NA 138 mmol/L (136-145)
[2022-03-18 16:51] LABS: ESTIMATED GFR 75 mL/min (>60)
[2022-03-18] MEDS ORDERED: Iopamidol 755 MG/ML 500 ML Multipack Bottle IVPUSH ONE (20:20)
[2022-03-18] MEDS ORDERED: Ketorolac 30 MG/ML SDV IVPUSH ONE (21:02)
[2022-03-18] MEDS ORDERED: Morphine 4 MG/ML Syringe ONE (21:19)
== END 2022-03-18 21:38 | disposition home or self-care (01) ==
LOC: MW.ED 14:51
DX: R09.1 Pleurisy (principal); K21.9 Gastro-esophageal reflux disease without esophagitis; M06.9 Rheumatoid arthritis, unspecified; Z91.048 Other nonmedicinal substance allergy status; Z91.030 Bee allergy status; Z79.899 Other long term (current) drug therapy; Z79.82 Long term (current) use of aspirin
CPT/HCPCS: 36415; 71045; 71275; 80053; 83690; 84484; 85025; 85379; 85652; 86140; 96374; 96375; 96376; 99285; J1885; J2270; J2405; J3490; Q9967

== ENCOUNTER 2022-05-06 18:25 | Emergency (ER) | payer MEDICARE, OTHER ==
[2022-05-06] MEDS ORDERED: Sodium Chloride 0.9% 1,000 ML IV ONE (18:51)
[2022-05-06] MEDS ORDERED: Ondansetron 4 MG/2 ML SDV IVPUSH ONE (18:51)
[2022-05-06] MEDS ORDERED: Sodium Chloride 0.9% 2.5 ML Syringe FLUSH PRN (18:52)
[2022-05-06] MEDS ORDERED: HYDROmorphone 1 MG/ML Syringe IVPUSH ONE ×2 (18:52→20:04)
[2022-05-06] MEDS ORDERED: Sodium Chloride 0.9% 10 ML Syringe FLUSH PRN (18:52)
[2022-05-06 19:53] LABS: CARBON DIOXIDE,CO2 21.3 mmol/L (21.0-32.0); POTASSIUM,K 3.4 mmol/L (3.5-5.1)
[2022-05-06 20:05] LABS: CORONAVIRUS COVID-19 NAA NEGATIVE (NEGATIVE); INFLUENZA A NAA NEGATIVE (NEGATIVE); INFLUENZA B NAA NEGATIVE (NEGATIVE)
[2022-05-06 22:35] VITALS: BP 132/85; PULSE 84
== END 2022-05-06 21:40 | disposition home or self-care (01) ==
LOC: MW.ED 18:25
DX: M25.511 Pain in right shoulder (principal); M25.512 Pain in left shoulder; M06.9 Rheumatoid arthritis, unspecified; M19.90 Unspecified osteoarthritis, unspecified site; Z91.048 Other nonmedicinal substance allergy status; Z91.040 Latex allergy status; Z91.030 Bee allergy status; Z79.82 Long term (current) use of aspirin; Z20.822 Contact with and (suspected) exposure to COVID-19
CPT/HCPCS: 0240U; 36415; 80053; 83735; 84484; 85025; 86140; 93005; 96361; 96374; 96375; 96376; 99283; J1170; J2405; J3490; J7030; 93010; 99284